=== PATIENT | female | born 1960 | race African-American/Black ===

== ENCOUNTER 2018-08-01 13:08 | Inpatient (IN) | payer MEDICAID ==
[~2018-08-01] VITALS: Ht 165.1 cm; Wt 57.2 kg
--- NOTE | 2018-08-01 13:14 | NUR ---
PT A/OX1, BIB PRIVATE AMBULANCE FROM [facility]. PT C/O CHRONIC BACK PAIN, DENIES FALL/TRAUMA TO BACK. VSS. NO BRUISING/DEFORMITY TO THE SPINE NOTED. SKIN INTACT. PT REPORTS BACK PAIN IS "WORSE TODAY THAN USUAL" BUT UNABLE TO PROVIDE ADDITIONAL INFORMATION. PT DENIES C/P, SOB, N/V/D, DIZZINESS, HEADACHE.
--- NOTE | 2018-08-01 13:20 | NUR ---
Called [facility] and spoke with Emilee who stated pt has been c/o back pain since she woke up today and there was no fall or trauma that was reported.
[2018-08-01] MEDS ORDERED: METF-440 PO (13:23)
[2018-08-01] MEDS ORDERED: OLAN10TA3 PO (13:23)
[2018-08-01] MEDS ORDERED: BENZ1TAB7 PO (13:23)
[2018-08-01] MEDS ORDERED: FLUO-120 PO (13:23)
[2018-08-01] MEDS ORDERED: ATOR20TA PO (13:23)
[2018-08-01] MEDS ORDERED: CHOL200074 PO (13:23)
[2018-08-01] MEDS ORDERED: CARV3.122 PO (13:23)
[2018-08-01] MEDS ORDERED: ASPI81TA31 PO (13:23)
[2018-08-01] MEDS ORDERED: MELA3TAB PO (13:23)
[2018-08-01] MEDS ORDERED: QUET100T PO (13:23)
[2018-08-01] MEDS ORDERED: OLAN20TA3 PO (13:23)
[2018-08-01] MEDS ORDERED: CLON0.1T PO (13:23)
[2018-08-01 14:28] LABS: BASOPHILS % (AUTO) 0.8 % (0.0-2.0); EOSINOPHILS # (AUTO) 0.1 K/uL (0.0-0.7); EOSINOPHILS % (AUTO) 1.7 % (0.0-7.0); HEMATOCRIT 40.7 % (31.2-41.9); LYMPHOCYTES # (AUTO) 1.3 K/uL (20.0-40.0); MEAN CORPUSCULAR HEMOGLOBIN 28.1 uug (24.7-32.8); MEAN CORPUSCULAR HGB CONC 32 g/dL (32.3-35.6); MEAN CORPUSCULAR VOLUME 87.5 fL (75.5-95.3); MONOCYTES # (AUTO) 0.7 K/uL (2.0-10.0); MONOCYTES % (AUTO) 11.9 % (0.0-11.0); NEUTROPHILS # (AUTO) 3.6 K/uL (1.8-8.9); NEUTROPHILS % (AUTO) 62.6 % (38.5-71.5); PLATELET COUNT (AUTO) 126 K/uL (179-408); RED BLOOD CELL COUNT(AUTO) 4.65 MIL/uL (3.63-4.92); WHITE BLOOD COUNT (AUTO) 5.7 K/uL (3.8-11.8)
[2018-08-01 14:37] LABS: CREATININE 0.8 mg/dL (0.6-1.3); POTASSIUM 4.5 mmol/L (3.5-5.1)
[2018-08-01 14:43] LABS: BILIRUBIN,DIRECT 0.2 mg/dL (0.0-0.2); BILIRUBIN,TOTAL 0.9 mg/dL (0.2-1.0); TOTAL PROTEIN, SERUM 7.7 g/dL (6.4-8.2)
[2018-08-01 15:38] LABS: *BILIRUBIN,URIN NEGATIVE (NEGATIVE); *BLOOD, URINE NEGATIVE (NEGATIVE); *CLARITY,URINE CLEAR (CLEAR); *COLOR,URINE YELLOW (YELLOW); *KETONES,URINE NEGATIVE (NEGATIVE); *UROBILINOGEN,URINE 0.2 E.U./dl (NORMAL); LEUKOCYTE ESTERASE ,URINE NEGATIVE (NEGATIVE); NITRITE, URINE NEGATIVE (NEGATIVE); UGLUCOSE NEGATIVE (NEGATIVE)
[2018-08-01 15:48] LABS: SQUAMOUS EPITHELIAL CELL,UR FEW /HPF (NONE SEEN); WBC,URINE 0-3 /HPF (0-3)
--- NOTE | 2018-08-01 16:40 | NUR ---
RECEIVED ADMITTING ORDERS FROM DR. MIRANDA.
--- NOTE | 2018-08-01 16:44 | NUR ---
GAVE ADMITTING REPORT TO KAREN SUERO.
[2018-08-01 18:37] VITALS: BP 156/91
--- NOTE | 2018-08-01 18:41 | NUR ---
58 YEAR OLD FEMALE RECEIVED FROM ER VIA [facility] TO ROOM 319 FOR BACK PAIN,CALL LIGHT WITH IN REACH MD CALLED FOR ADMISSION ORDERS,V/S ARE STABLE
[2018-08-01] MEDS: IV D5/ 0.9% NACL 1,000 ML IV PRN (20:21)
[2018-08-01] MEDS ORDERED: MAGNESIUM HYDROXIDE 30 ML LIQUID UDC PO PRN (20:45)
[2018-08-01] MEDS ORDERED: ACETAMINOPHEN 325 MG TABLET PO PRN (20:45)
[2018-08-01] MEDS ORDERED: ONDANSETRON 4 MG/2 ML VIAL IV PRN (20:45)
[2018-08-01] MEDS: BENZTROPINE MESYLATE 1 MG TABLET PO SCH (20:46)
[2018-08-01] MEDS: ATORVASTATIN 20 MG TABLET PO SCH (20:46)
[2018-08-01 20:47] VITALS: BP 147/94
[2018-08-01] MEDS: MELATONIN 3 MG TABLET PO SCH (20:47)
[2018-08-01] MEDS: OLANZAPINE 5 MG TABLET PO SCH (20:47)
[2018-08-01] MEDS: CLONIDINE HCL 0.1 MG TABLET PO SCH (20:48)
--- NOTE | 2018-08-01 20:57 | NUR ---
Received this 58 y/o female patient Admitting Dx Generalized weakness. Awake pleasantly confused no SOB denies chest pain. Admission assessment initiated. Vital signs WNL BP above normal. Dinner tray provided. Patient tolerated pureed diet. Routine night meds administered. IVF D5NS at 85 ml/hr started as ordered. Kept comfortable. Fall precaution observed, kept bed alarm on at all times. Call light within reach. Will continue to monitor.
--- NOTE | 2018-08-01 23:24 | NUR ---
Asleep no sign of distress.
--- NOTE | 2018-08-02 03:00 | NUR ---
Assisted to the bathroom, patient voided.
--- NOTE | 2018-08-02 04:07 | NUR ---
Noted right hand IV line infiltrated, attempted to insert new IV line x2 but unsuccessful. Patient is hard stick.
[2018-08-02 04:47] VITALS: BP 158/98
--- NOTE | 2018-08-02 07:28 | NUR ---
PATIENT RECEIVED RESTING IN BED ALERT AND ORIENTED TO SELF, CONFUSED TO PLACE TIME AND SITUATION, PATIENT WITH HISTORY OF DEMENTIA, PER HISTORY THIS IS PATIENT BASELINE, PATIENT PLEASANT, CALL LIGHT WITHIN REACH, SIDE RAILS UP X2, BED IN LOWEST POSITION, CONTINUE TO MONITOR PATIENT WITH IV SITE INFILTRATED AT HS, HARD STICK, WILL ATTEMPT TO PLACE LINE, OTHERWISE WILL RECOMMEND MIDLINE IF NEEDED FOR CONTINUES IV HYDRATION .
[2018-08-02] MEDS: METFORMIN HCL 500 MG TABLET PO SCH ×2 (08:17→17:00)
[2018-08-02] MEDS: ASPIRIN 81 MG TAB.CHEW PO SCH (08:17)
[2018-08-02] MEDS: FLUOXETINE HCL 20 MG CAPSULE PO SCH (08:17)
[2018-08-02] MEDS: CHOLECALCIFEROL 1,000 UNIT TABLET PO SCH (08:17)
[2018-08-02] MEDS: OLANZAPINE 5 MG TABLET PO SCH ×2 (08:17→20:49)
[2018-08-02] MEDS: CLONIDINE HCL 0.1 MG TABLET PO SCH ×2 (08:18→20:48)
[2018-08-02] MEDS: CARVEDILOL 3.125 MG TABLET PO SCH ×2 (08:18→17:00)
[2018-08-02] MEDS: QUETIAPINE FUMARATE 100 MG TABLET PO SCH ×3 (08:38→16:07)
[2018-08-02] MEDS: Z GUARD REMEDY PASTE 57 GM TUBE TOP SCH ×2 (08:39→21:05)
[2018-08-02 11:22] VITALS: BP 132/81
[2018-08-02] MEDS ORDERED: DEXTROSE 50% 50 ML DISP.SYRIN IV PRN (13:30)
[2018-08-02] MEDS: IV D5/ 0.9% NACL 1,000 ML IV PRN (14:59)
--- NOTE | 2018-08-02 15:28 | NUR ---
TEXTED DR. BLANK FOR MRI BRAIN W/O APPROVAL.
[2018-08-02 15:30] VITALS: BP 137/92
[2018-08-02] MEDS: BLOOD SUGAR DIAGNOSTIC 1 EACH STRIP VI SCH ×2 (16:06→21:00)
--- NOTE | 2018-08-02 19:50 | NUR ---
Received patient asleep in bed, easily arousable. Not in any form of distress. On room air, tolerated. With midline at left upper arm to ongoing IVF, infusing well. Bed in low position, locked, side rails up x 2, call light within reach. Noise and lights subdued.
[2018-08-02 20:04] VITALS: BP 142/90
[2018-08-02] MEDS: ATORVASTATIN 20 MG TABLET PO SCH (20:48)
[2018-08-02] MEDS: BENZTROPINE MESYLATE 1 MG TABLET PO SCH (20:48)
[2018-08-02] MEDS: MELATONIN 3 MG TABLET PO SCH (20:51)
[2018-08-03] MEDS: IV D5/ 0.9% NACL 1,000 ML IV PRN ×2 (03:15→20:54)
[2018-08-03 04:40] VITALS: BP 160/97
--- NOTE | 2018-08-03 05:42 | NUR ---
Patient slept well throughout the night . Not in any form of distress. On room air, tolerated. With midline at left upper arm to ongoing IVF, infusing well. Ensured safety and comfort. No complaints made. Attended all needs.
[2018-08-03] MEDS: BLOOD SUGAR DIAGNOSTIC 1 EACH STRIP VI SCH ×4 (06:33→20:59)
[2018-08-03] MEDS: CLONIDINE HCL 0.1 MG TABLET PO SCH ×2 (06:39→20:54)
--- NOTE | 2018-08-03 06:43 | NUR ---
Noted patient for MRI of the brain today, to be picked up at 0845. Latest blood pressure is 167/94, asymptomatic, morning dose of clonidine given per orem.
[2018-08-03 07:11] LABS: BASOPHILS % (AUTO) 0.6 % (0.0-2.0); EOSINOPHILS # (AUTO) 0.1 K/uL (0.0-0.7); EOSINOPHILS % (AUTO) 1.6 % (0.0-7.0); HEMOGLOBIN 12.8 g/dL (10.9-14.3); LYMPHOCYTES # (AUTO) 1.1 K/uL (20.0-40.0); LYMPHOCYTES % (AUTO) 22.2 % (20.5-51.5); MEAN CORPUSCULAR HEMOGLOBIN 27.8 uug (24.7-32.8); MEAN CORPUSCULAR HGB CONC 31 g/dL (32.3-35.6); MEAN CORPUSCULAR VOLUME 88.8 fL (75.5-95.3); MONOCYTES # (AUTO) 0.5 K/uL (2.0-10.0); MONOCYTES % (AUTO) 10.9 % (0.0-11.0); NEUTROPHILS # (AUTO) 3.1 K/uL (1.8-8.9); NEUTROPHILS % (AUTO) 64.7 % (38.5-71.5); PLATELET COUNT (AUTO) 111 K/uL (179-408); RED BLOOD CELL COUNT(AUTO) 4.61 MIL/uL (3.63-4.92); WHITE BLOOD COUNT (AUTO) 4.8 K/uL (3.8-11.8)
[2018-08-03] MEDS: METFORMIN HCL 500 MG TABLET PO SCH ×2 (07:47→17:09)
[2018-08-03] MEDS: CARVEDILOL 3.125 MG TABLET PO SCH ×2 (07:47→17:09)
[2018-08-03] MEDS: OLANZAPINE 5 MG TABLET PO SCH ×2 (07:48→16:55)
[2018-08-03] MEDS: CHOLECALCIFEROL 1,000 UNIT TABLET PO SCH (08:00)
[2018-08-03] MEDS: QUETIAPINE FUMARATE 100 MG TABLET PO SCH (08:00)
[2018-08-03] MEDS: FLUOXETINE HCL 20 MG CAPSULE PO SCH (08:00)
[2018-08-03] MEDS: ASPIRIN 81 MG TAB.CHEW PO SCH (08:00)
[2018-08-03] MEDS: Z GUARD REMEDY PASTE 57 GM TUBE TOP SCH ×2 (08:01→21:24)
[2018-08-03 08:40] VITALS: BP 144/81
--- NOTE | 2018-08-03 09:00 | NUR ---
pt went for mri via ambulances in stable condition
[2018-08-03 09:06] LABS: CREATININE 0.6 mg/dL (0.6-1.3); PHOSPHOROUS 2.9 mg/dL (2.5-4.9); POTASSIUM 3.8 mmol/L (3.5-5.1)
[2018-08-03 10:07] LABS: MAGNESIUM 0.9 mg/dL (1.8-2.4)
--- NOTE | 2018-08-03 10:33 | NUR ---
pt is back from mri v/s are stable
[2018-08-03 11:28] VITALS: BP 124/76
[2018-08-03] MEDS: MAGNESIUM SULFATE/D5W 100 ML IV SCH ×3 (12:20→14:27)
[2018-08-03 16:00] VITALS: BP 125/79
[2018-08-03] MEDS: INSULIN REGULAR, HUMAN 300 UNIT/3 ML VIAL SQ PRN (16:11)
--- NOTE | 2018-08-03 19:30 | NUR ---
Received patient awake in bed. Not in any form of distress. On room air, tolerated. With midline at left upper arm to ongoing IVF, infusing well. Bed in low position, locked, side rails up x 2, call light within reach. Noise and lights subdued. Will continue to monitor.
[2018-08-03 20:11] VITALS: BP 173/100
[2018-08-03] MEDS: BENZTROPINE MESYLATE 1 MG TABLET PO SCH (20:53)
[2018-08-03] MEDS: MELATONIN 3 MG TABLET PO SCH (20:53)
[2018-08-03] MEDS: ATORVASTATIN 20 MG TABLET PO SCH (20:53)
--- NOTE | 2018-08-04 00:22 | NUR ---
Blood pressure remains elevated at 170/97 even after catapres given per orem. Called [facility] to page career development consultant MD to ask for medication order. Awaiting call back.
[2018-08-04] MEDS ORDERED: hydrALAZINE HCL 50 MG TABLET PO PRN (00:30)
[2018-08-04 00:31] VITALS: BP 170/97
--- NOTE | 2018-08-04 02:00 | NUR ---
Patient was given hydralazine as ordered by Dr. Latif at 0045. Latest blood pressure is 156/89.
[2018-08-04 04:49] VITALS: BP 126/82
--- NOTE | 2018-08-04 05:51 | NUR ---
Patient slept well throughout the night . No distress noted. On room air, tolerated. With midline at left upper arm to ongoing IVF, infusing well. Ensured safety and comfort. No complaints made. Attended all needs.
[2018-08-04 06:35] LABS: BASOPHILS % (AUTO) 0.3 % (0.0-2.0); EOSINOPHILS # (AUTO) 0.1 K/uL (0.0-0.7); EOSINOPHILS % (AUTO) 1.1 % (0.0-7.0); HEMATOCRIT 40.7 % (31.2-41.9); HEMOGLOBIN 12.9 g/dL (10.9-14.3); LYMPHOCYTES # (AUTO) 0.8 K/uL (20.0-40.0); LYMPHOCYTES % (AUTO) 15.2 % (20.5-51.5); MEAN CORPUSCULAR HGB CONC 32 g/dL (32.3-35.6); MEAN CORPUSCULAR VOLUME 88.6 fL (75.5-95.3); MONOCYTES # (AUTO) 0.6 K/uL (2.0-10.0); MONOCYTES % (AUTO) 11.7 % (0.0-11.0); NEUTROPHILS % (AUTO) 71.7 % (38.5-71.5); PLATELET COUNT (AUTO) 104 K/uL (179-408); WHITE BLOOD COUNT (AUTO) 5.6 K/uL (3.8-11.8)
[2018-08-04 06:42] LABS: BILIRUBIN,TOTAL 0.6 mg/dL (0.2-1.0); CREATININE 0.6 mg/dL (0.6-1.3); MAGNESIUM 1.3 mg/dL (1.8-2.4); PHOSPHOROUS 2.5 mg/dL (2.5-4.9); POTASSIUM 3.8 mmol/L (3.5-5.1); TOTAL PROTEIN, SERUM 7.1 g/dL (6.4-8.2)
[2018-08-04] MEDS: BLOOD SUGAR DIAGNOSTIC 1 EACH STRIP VI SCH ×4 (06:42→20:41)
[2018-08-04] MEDS: CLONIDINE HCL 0.1 MG TABLET PO SCH ×2 (08:26→20:34)
[2018-08-04] MEDS: CHOLECALCIFEROL 1,000 UNIT TABLET PO SCH (08:26)
[2018-08-04] MEDS: METFORMIN HCL 500 MG TABLET PO SCH ×2 (08:26→17:14)
[2018-08-04] MEDS: FLUOXETINE HCL 20 MG CAPSULE PO SCH (08:26)
[2018-08-04] MEDS: ASPIRIN 81 MG TAB.CHEW PO SCH (08:27)
[2018-08-04] MEDS: OLANZAPINE 5 MG TABLET PO SCH ×2 (08:27→16:44)
[2018-08-04] MEDS: CARVEDILOL 3.125 MG TABLET PO SCH ×2 (08:27→17:14)
[2018-08-04] MEDS: Z GUARD REMEDY PASTE 57 GM TUBE TOP SCH ×2 (08:27→20:34)
[2018-08-04] MEDS: IV D5/ 0.9% NACL 1,000 ML IV PRN (08:35)
[2018-08-04] MEDS ORDERED: LEVOFLOXACIN 500 MG TABLET PO SCH (09:30)
[2018-08-04] MEDS: MAGNESIUM SULFATE/D5W 100 ML IV SCH ×4 (10:28→12:34)
[2018-08-04 11:11] VITALS: BP 148/87
[2018-08-04] MEDS: LEVOFLOXACIN 500 MG TABLET PO SCH (11:21)
[2018-08-04 15:08] VITALS: BP 123/80
[2018-08-04] MEDS: INSULIN REGULAR, HUMAN 300 UNIT/3 ML VIAL SQ PRN (16:28)
[2018-08-04 20:00] VITALS: BP 149/89
[2018-08-04] MEDS: ATORVASTATIN 20 MG TABLET PO SCH (20:34)
[2018-08-04] MEDS: MELATONIN 3 MG TABLET PO SCH (20:34)
[2018-08-04] MEDS: BENZTROPINE MESYLATE 1 MG TABLET PO SCH (20:34)
[2018-08-05 04:53] VITALS: BP 123/85
--- NOTE | 2018-08-05 04:54 | NUR ---
INFORMATION SENT: FACESHEET,PROGRESS NOTES 08/04,UR 08/04 INSURANCE NAME: [facility] / [facility] FAX NUMBER: [phone] / [phone] FAX SENT
[2018-08-05] MEDS: BLOOD SUGAR DIAGNOSTIC 1 EACH STRIP VI SCH ×4 (06:34→20:51)
[2018-08-05 06:47] LABS: BILIRUBIN,TOTAL 0.7 mg/dL (0.2-1.0); CREATININE 0.7 mg/dL (0.6-1.3); MAGNESIUM 1.3 mg/dL (1.8-2.4); PHOSPHOROUS 2.4 mg/dL (2.5-4.9); POTASSIUM 4.5 mmol/L (3.5-5.1); TOTAL PROTEIN, SERUM 7.5 g/dL (6.4-8.2)
[2018-08-05] MEDS: CHOLECALCIFEROL 1,000 UNIT TABLET PO SCH (08:37)
[2018-08-05] MEDS: METFORMIN HCL 500 MG TABLET PO SCH ×2 (08:37→18:03)
[2018-08-05] MEDS: OLANZAPINE 5 MG TABLET PO SCH ×2 (08:38→18:03)
[2018-08-05] MEDS: CLONIDINE HCL 0.1 MG TABLET PO SCH ×2 (08:38→20:52)
[2018-08-05] MEDS: ASPIRIN 81 MG TAB.CHEW PO SCH (08:38)
[2018-08-05] MEDS: CARVEDILOL 3.125 MG TABLET PO SCH ×2 (08:39→18:03)
[2018-08-05] MEDS: FLUOXETINE HCL 20 MG CAPSULE PO SCH (08:42)
[2018-08-05 08:54] LABS: BASOPHILS % (AUTO) 0.5 % (0.0-2.0); EOSINOPHILS % (AUTO) 0.4 % (0.0-7.0); HEMATOCRIT 40.2 % (31.2-41.9); HEMOGLOBIN 12.9 g/dL (10.9-14.3); LYMPHOCYTES # (AUTO) 1.2 K/uL (20.0-40.0); LYMPHOCYTES % (AUTO) 16.3 % (20.5-51.5); MEAN CORPUSCULAR HEMOGLOBIN 28.3 uug (24.7-32.8); MEAN CORPUSCULAR HGB CONC 32 g/dL (32.3-35.6); MEAN CORPUSCULAR VOLUME 88.1 fL (75.5-95.3); MONOCYTES # (AUTO) 0.8 K/uL (2.0-10.0); MONOCYTES % (AUTO) 11.2 % (0.0-11.0); NEUTROPHILS # (AUTO) 5.3 K/uL (1.8-8.9); NEUTROPHILS % (AUTO) 71.6 % (38.5-71.5); PLATELET COUNT (AUTO) 107 K/uL (179-408); RED BLOOD CELL COUNT(AUTO) 4.56 MIL/uL (3.63-4.92); WHITE BLOOD COUNT (AUTO) 7.4 K/uL (3.8-11.8)
[2018-08-05] MEDS: Z GUARD REMEDY PASTE 57 GM TUBE TOP SCH ×2 (09:26→20:50)
[2018-08-05 11:48] VITALS: BP 132/85
[2018-08-05] MEDS: LEVOFLOXACIN 500 MG TABLET PO SCH (11:57)
[2018-08-05] MEDS: MAGNESIUM SULFATE 2 GM in IV DEXTROSE 5% 100 ML IV SCH ×2 (15:07→16:51)
[2018-08-05] MEDS ORDERED: NEUTRA PHOS PACKET PO ONE (15:30)
[2018-08-05 15:58] VITALS: BP 112/74
[2018-08-05 15:59] VITALS: BP 91/55
--- NOTE | 2018-08-05 20:00 | NUR ---
Received patient laying in bed. No acute distress noted. A/O x 2 with periods of confusion. Patient talks to herself. Midline on the left UA patent and intact. Skin is intact. Safety initiated. Call light within reach. Will continue to monitor.
[2018-08-05] MEDS: ATORVASTATIN 20 MG TABLET PO SCH (20:49)
[2018-08-05] MEDS: MELATONIN 3 MG TABLET PO SCH (20:49)
[2018-08-05] MEDS: BENZTROPINE MESYLATE 1 MG TABLET PO SCH (20:50)
[2018-08-05] MEDS: INSULIN REGULAR, HUMAN 300 UNIT/3 ML VIAL SQ PRN (20:55)
[2018-08-05 23:09] VITALS: BP 132/85
[2018-08-06 04:00] VITALS: BP 129/74
--- NOTE | 2018-08-06 05:34 | NUR ---
No changes t/o shift. Patient slept t/o shift. No acute distress noted. Good urine output. Vital signs stable. All meds given as ordered. All needs met. Safety and comfort measures maintained t/o shift.
[2018-08-06] MEDS: BLOOD SUGAR DIAGNOSTIC 1 EACH STRIP VI SCH ×2 (06:38→11:44)
[2018-08-06 06:47] LABS: CREATININE 0.6 mg/dL (0.6-1.3); MAGNESIUM 1.4 mg/dL (1.8-2.4); PHOSPHOROUS 1.7 mg/dL (2.5-4.9); POTASSIUM 4.6 mmol/L (3.5-5.1)
--- NOTE | 2018-08-06 07:02 | NUR ---
INFORMATION SENT: FACESHEET,PROGRESS NOTES 08/05,UR 08/05 INSURANCE NAME: [facility] FAX NUMBER: [phone] / [phone] FAX SENT
[2018-08-06] MEDS ORDERED: OLAN5TAB3 PO (07:47)
[2018-08-06] MEDS ORDERED: LEVO500T2 PO (07:47)
[2018-08-06] MEDS: METFORMIN HCL 500 MG TABLET PO SCH (08:38)
[2018-08-06] MEDS: CHOLECALCIFEROL 1,000 UNIT TABLET PO SCH (08:39)
[2018-08-06] MEDS: CARVEDILOL 3.125 MG TABLET PO SCH (08:39)
[2018-08-06] MEDS: OLANZAPINE 5 MG TABLET PO SCH (08:39)
[2018-08-06] MEDS: ASPIRIN 81 MG TAB.CHEW PO SCH (08:39)
[2018-08-06] MEDS: FLUOXETINE HCL 20 MG CAPSULE PO SCH (08:39)
[2018-08-06] MEDS: Z GUARD REMEDY PASTE 57 GM TUBE TOP SCH (08:46)
--- NOTE | 2018-08-06 09:00 | NUR ---
Received patient awake, alert x 1-2. With intact and patent left upper arm midline. Not in any form of distress. Baseline LOC. Tolerated diet well and medications well with apple sauce.
[2018-08-06] MEDS: CLONIDINE HCL 0.1 MG TABLET PO SCH (10:57)
[2018-08-06] MEDS: LEVOFLOXACIN 500 MG TABLET PO SCH (11:00)
[2018-08-06] MEDS: INSULIN REGULAR, HUMAN 300 UNIT/3 ML VIAL SQ PRN (11:45)
[2018-08-06 11:53] VITALS: BP 111/63
[2018-08-06] MEDS: MAGNESIUM SULFATE/D5W 100 ML IV SCH ×4 (12:09→14:45)
--- NOTE | 2018-08-06 15:32 | NUR ---
[facility] aware of patient to be discharged to them per caser up. Admission packet and education given to patient. Routine discharge care done. Patient with poor understanding of health but aware she is being discharged to assisted living.
[2018-08-06] MEDS ORDERED: MAGNESIUM OXIDE 400 MG TABLET PO ONE (16:00)
--- NOTE | 2018-08-06 16:00 | NUR ---
Informed pharmacy of discharge order for patient, however with still 1 bag of Magnesium IV to give. PO Magnesium 400 mg given instead of 1 bag IV of Magnesium. Patient discharge to [facility] assisted living accompanied by assisted living staff via private transport.
[2018-10-25] MEDS ORDERED: OLAN20TA24 PO (22:46)
== END 2018-08-06 16:04 | DRG 347 ==
LOC: ER 13:08 → MEDSURG3 18:15
PROVIDERS: ADMIT Internal Medicine Nephrology; ATTEND Internal Medicine
PROC: 05HY33Z Insertion of Infusion Device into Upper Vein, Percutaneous Approach (ICD-10-PCS; principal; 2018-08-02)
DX: M47.816 Spondylosis without myelopathy or radiculopathy, lumbar region (principal); G92 Toxic encephalopathy; F32.3 Major depressive disorder, single episode, severe with psychotic features; J18.9 Pneumonia, unspecified organism; F03.91 Unspecified dementia, unspecified severity, with behavioral disturbance; E78.5 Hyperlipidemia, unspecified; M19.90 Unspecified osteoarthritis, unspecified site; E83.42 Hypomagnesemia; I11.9 Hypertensive heart disease without heart failure; Z79.84 Long term (current) use of oral hypoglycemic drugs; Z79.82 Long term (current) use of aspirin; I69.392 Facial weakness following cerebral infarction; E11.9 Type 2 diabetes mellitus without complications; R53.81 Other malaise; Z79.899 Other long term (current) drug therapy; R26.2 Difficulty in walking, not elsewhere classified
CPT/HCPCS: 36415; 36569; 70450; 70551; 71045; 72110; 83735; 84100; 85025; 93005; 97110; 97116; 97165; 97530; 97535; A4663; G0378; J1815; J3475; J7042; J7060

== ENCOUNTER 2018-10-25 22:24 | Inpatient (IN) | payer MEDICAID ==
[~2018-10-25] VITALS: Ht 165.1 cm; Wt 63.6 kg
[~2018-10-25 22:24] MED LIST: ASPI81TA31 PO; ATOR20TA PO; BENZ1TAB7 PO; CARV3.122 PO; CHOL200074 PO; CLON0.1T PO; FLUO-120 PO; LEVO500T2 PO; MELA3TAB PO; METF-440 PO; OLAN10TA3 PO; OLAN5TAB3 PO
--- NOTE | 2018-10-25 22:45 | NUR ---
pt was brought in via ambulance comes from [facility] pt stated she was trying to go to the bathroom by herself without her walker and slipped to the floor denies loss of consciousness but stated her left hip hurt down to her left knee no abnorm. noted pt is able to move all extremities without incident. emt's stated pt had a fall that was unwitness and c/o of pain
[2018-10-25] MEDS ORDERED: QUET100T PO (22:46)
[2018-10-25] MEDS ORDERED: OLAN20TA17 PO (22:46)
[2018-10-25 22:59] LABS: BASOPHILS % (AUTO) 0.7 % (0.0-2.0); EOSINOPHILS # (AUTO) 0.1 K/uL (0.0-0.7); EOSINOPHILS % (AUTO) 1.6 % (0.0-7.0); HEMATOCRIT 37.6 % (31.2-41.9); HEMOGLOBIN 11.7 g/dL (10.9-14.3); LYMPHOCYTES # (AUTO) 1.1 K/uL (20.0-40.0); LYMPHOCYTES % (AUTO) 25.7 % (20.5-51.5); MEAN CORPUSCULAR HEMOGLOBIN 28.5 uug (24.7-32.8); MEAN CORPUSCULAR HGB CONC 31 g/dL (32.3-35.6); MEAN CORPUSCULAR VOLUME 91.2 fL (75.5-95.3); MONOCYTES # (AUTO) 0.4 K/uL (2.0-10.0); MONOCYTES % (AUTO) 9.4 % (0.0-11.0); NEUTROPHILS # (AUTO) 2.7 K/uL (1.8-8.9); NEUTROPHILS % (AUTO) 62.6 % (38.5-71.5); PLATELET COUNT (AUTO) 133 K/uL (179-408); RED BLOOD CELL COUNT(AUTO) 4.13 MIL/uL (3.63-4.92); WHITE BLOOD COUNT (AUTO) 4.3 K/uL (3.8-11.8)
[2018-10-25 23:15] LABS: CREATININE 0.7 mg/dL (0.6-1.3)
[2018-10-25 23:17] LABS: BILIRUBIN,DIRECT 0.1 mg/dL (0.0-0.2); BILIRUBIN,TOTAL 0.3 mg/dL (0.1-1.0)
[2018-10-25 23:18] LABS: TOTAL PROTEIN, SERUM 7.1 g/dL (6.4-8.2)
--- NOTE | 2018-10-25 23:30 | NUR ---
pt went to radiologist dept
--- NOTE | 2018-10-26 00:25 | NUR ---
pt is back from radiologist dept condition remains stable without incident
[2018-10-26] MEDS ORDERED: hydrALAZINE HCL 20 MG/1 ML VIAL IV ONE (00:45)
[2018-10-26 00:48] LABS: *BILIRUBIN,URIN NEGATIVE (NEGATIVE); *BLOOD, URINE NEGATIVE (NEGATIVE); *CLARITY,URINE CLEAR (CLEAR); *COLOR,URINE YELLOW (YELLOW); *KETONES,URINE NEGATIVE (NEGATIVE); *UROBILINOGEN,URINE 0.2 E.U./dl (NORMAL); LEUKOCYTE ESTERASE ,URINE NEGATIVE (NEGATIVE); NITRITE, URINE NEGATIVE (NEGATIVE); PH,URINE 5.5 (5.0-8.0); UGLUCOSE NEGATIVE (NEGATIVE)
--- NOTE | 2018-10-26 00:50 | NUR ---
pt was medicated time one with apresoline for sbp over 199 pt denies allergy medication teaching given denies pain/discomfort will continue b/p at this time
[2018-10-26] MEDS ORDERED: hydrALAZINE HCL 20 MG/1 ML VIAL ONE (00:59)
--- NOTE | 2018-10-26 01:00 | NUR ---
pt bp down to 146/90
--- NOTE | 2018-10-26 01:15 | NUR ---
report was called to faraz hurst the new rec'ing nurse pt is going to room 11 all questions answered pt condition remains stable and pt is aware of her admit and why
--- NOTE | 2018-10-26 02:00 | NUR ---
pt resting quietly until admission is cleared
--- NOTE | 2018-10-26 02:50 | NUR ---
Paged [facility]. Waiting for DR Latif to call back
--- NOTE | 2018-10-26 03:05 | NUR ---
pt resting without incident comfort and safety maintained
--- NOTE | 2018-10-26 03:07 | NUR ---
Dr Nichole speaking with Dr Iliana Latif
--- NOTE | 2018-10-26 03:45 | NUR ---
Received patient from ER. Dx: Syncope. Patient is A/Ox1-2 No signs of acute distress noted. No complaints of SOB, patient on 2L NC saturating at 94%. Complains of 4/10 pain of the left hip. Heplock on the right hand is intact. Garcia catheter is intact and patent. Belongings and belonging list brought with patient. Safety measures initiated. Bed is low and lock, call light within reach. Will continue with admission process.
[2018-10-26 04:48] VITALS: BP 158/99
--- NOTE | 2018-10-26 07:10 | NUR ---
RECEIVED REPORT FROM TEMPLATE REPRODUCTION TECHNICIAN NURSE, PATIENT IN BED AWAKE, NO DISTRESS NOTED AT THIS TIME, BED IN LOW POSITION, SIDE RAILS UPX2.
[2018-10-26 07:14] LABS: BASOPHILS % (AUTO) 0.1 % (0.0-2.0); EOSINOPHILS % (AUTO) 0.2 % (0.0-7.0); HEMATOCRIT 41.7 % (31.2-41.9); HEMOGLOBIN 13.2 g/dL (10.9-14.3); LYMPHOCYTES # (AUTO) 0.8 K/uL (20.0-40.0); LYMPHOCYTES % (AUTO) 10.7 % (20.5-51.5); MEAN CORPUSCULAR HEMOGLOBIN 28.6 uug (24.7-32.8); MEAN CORPUSCULAR HGB CONC 32 g/dL (32.3-35.6); MEAN CORPUSCULAR VOLUME 90.1 fL (75.5-95.3); MONOCYTES # (AUTO) 0.5 K/uL (2.0-10.0); MONOCYTES % (AUTO) 6.1 % (0.0-11.0); NEUTROPHILS # (AUTO) 6.1 K/uL (1.8-8.9); NEUTROPHILS % (AUTO) 82.9 % (38.5-71.5); PLATELET COUNT (AUTO) 147 K/uL (179-408); RED BLOOD CELL COUNT(AUTO) 4.63 MIL/uL (3.63-4.92); WHITE BLOOD COUNT (AUTO) 7.3 K/uL (3.8-11.8)
[2018-10-26 07:18] LABS: CHLORIDE 105 mmol/L (98-107); CREATININE 0.5 mg/dL (0.6-1.3); GLUCOSE 128 mg/dL (74-106); POTASSIUM 3.7 mmol/L (3.5-5.1); UREA NITROGEN, BLOOD 13 mg/dL (7-18)
[2018-10-26 07:47] LABS: CARBON DIOXIDE 29 mmol/L (21-32)
[2018-10-26] MEDS: CARVEDILOL 3.125 MG TABLET PO SCH ×2 (08:57→17:40)
[2018-10-26] MEDS: FLUOXETINE HCL 20 MG CAPSULE PO SCH (08:57)
[2018-10-26] MEDS: ASPIRIN 81 MG TAB.CHEW PO SCH (08:57)
[2018-10-26] MEDS: CLONIDINE HCL 0.1 MG TABLET PO SCH ×2 (08:57→21:00)
[2018-10-26] MEDS: METFORMIN HCL 500 MG TABLET PO SCH ×3 (08:57→18:51)
[2018-10-26] MEDS: OLANZAPINE 5 MG TABLET PO SCH ×2 (08:58→21:00)
[2018-10-26] MEDS: CHOLECALCIFEROL 1,000 UNIT TABLET PO SCH (08:58)
[2018-10-26 12:15] VITALS: BP 100/54
[2018-10-26] MEDS: QUETIAPINE FUMARATE 100 MG TABLET PO SCH ×2 (12:46→16:24)
[2018-10-26 15:29] VITALS: BP 90/43
--- NOTE | 2018-10-26 17:42 | NUR ---
Patient has been cooperative with care but excessively lethargic. Evening medications held. Glucose checked for precautionary purposes, and blood pressure monitored. Currently patient is in bed, no distress noted at this time, bed in low position, side rails up x2. bed alarm on.
--- NOTE | 2018-10-26 19:40 | NUR ---
Received report from morning shift, patient has been very lethargic. No signs of acute distress noted. Able to arouse patient and ask how she's feeling, she stated that she was tired, had no complaints of pain or SOB. Heplock on the right hand is intact and patent. Garcia catheter is intact and draining clear yellow urine. Safety measures initiated. Bed is low and locked, call light within reach, side rails up x2. Will continue to monitor.
[2018-10-26] MEDS: ATORVASTATIN 20 MG TABLET PO SCH (20:53)
[2018-10-26] MEDS: BENZTROPINE MESYLATE 1 MG TABLET PO SCH (20:53)
[2018-10-26] MEDS: MELATONIN 3 MG TABLET PO SCH (21:00)
[2018-10-26 21:15] VITALS: BP 100/57
[2018-10-27] MEDS: CLONIDINE HCL 0.1 MG TABLET PO SCH ×3 (00:24→21:00)
[2018-10-27 00:25] VITALS: BP 146/89
--- NOTE | 2018-10-27 00:36 | NUR ---
Held scheduled clonidine, zyprexa, and melatonin due to patient being lethargic and decreased blood pressure of 100/57. Patient is now more alert and I administered unscheduled clonidine for BP of 146/89. Will continue to monitor.
[2018-10-27 04:30] VITALS: BP 139/88
--- NOTE | 2018-10-27 06:37 | NUR ---
Patient slept well throughout shift. No signs of acute distress. Patient was more alert. Repositioned patient. Safety measures given.
--- NOTE | 2018-10-27 07:51 | NUR ---
Awake, alert oriented x 2, complaining of of left hip pain
[2018-10-27] MEDS: OLANZAPINE 5 MG TABLET PO SCH ×2 (08:53→21:00)
[2018-10-27] MEDS: CHOLECALCIFEROL 1,000 UNIT TABLET PO SCH (08:53)
[2018-10-27] MEDS: METFORMIN HCL 500 MG TABLET PO SCH ×2 (08:54→17:21)
[2018-10-27] MEDS: FLUOXETINE HCL 20 MG CAPSULE PO SCH (08:54)
[2018-10-27] MEDS: QUETIAPINE FUMARATE 100 MG TABLET PO SCH ×3 (08:54→17:22)
[2018-10-27] MEDS: CARVEDILOL 3.125 MG TABLET PO SCH ×2 (08:55→17:20)
[2018-10-27] MEDS: ASPIRIN 81 MG TAB.CHEW PO SCH (08:55)
--- NOTE | 2018-10-27 11:00 | NUR ---
PT eval done, able to stand at the edge of bed.
[2018-10-27 11:31] VITALS: BP 113/73
[2018-10-27] MEDS ORDERED: DEXTROSE 50% 50 ML DISP.SYRIN IV PRN (13:15)
[2018-10-27] MEDS ORDERED: FUROSEMIDE 20 MG/2 ML VIAL IV ONE (13:15)
--- NOTE | 2018-10-27 15:15 | NUR ---
Noted O2 sat at 88% at 2L/NC, increased to 4L/NC with O2 sat 94%. Lasix IV given as ordered. Garcia catheter to drainage bag, will monitor urine output
[2018-10-27 15:39] VITALS: BP 111/70
[2018-10-27] MEDS: BLOOD SUGAR DIAGNOSTIC 1 EACH STRIP VI SCH ×2 (16:50→21:14)
--- NOTE | 2018-10-27 18:29 | NUR ---
Patient awake and alert ; ate 90 of Dinner. 02 at 4L on nasal cannula with SP02 of 94% .
[2018-10-27 20:00] VITALS: BP 98/57
--- NOTE | 2018-10-27 20:00 | NUR ---
Received pt. asleep in room. pt. is awake upon touch but drowses off to sleep. Pt. is on tele in sinus rhythm. Pt. has castillo in draining yellow urine. IV site in right hand 20 gauge patent and intact hep locked. Pt. is on 4 L Nasal Canula. Bed in lowest position, 2 side rails up, locked, with call light within reach. Will continue to monitor patient.
--- NOTE | 2018-10-27 20:30 | NUR ---
Did not give scheduled medication to pt. because pt. is lethargic. Informed Charge Nurse Jeri. Blood sugar checked 121 mg/dl. no insulin given. Pt. is responsive to touch. Will continue to monitor.
[2018-10-27] MEDS: BENZTROPINE MESYLATE 1 MG TABLET PO SCH (21:00)
[2018-10-27] MEDS: MELATONIN 3 MG TABLET PO SCH (21:00)
[2018-10-27] MEDS: ATORVASTATIN 20 MG TABLET PO SCH (21:00)
[2018-10-28] VITALS: BP 99/59
[2018-10-28 04:00] VITALS: BP 103/60
[2018-10-28] MEDS: BLOOD SUGAR DIAGNOSTIC 1 EACH STRIP VI SCH ×4 (06:34→20:39)
--- NOTE | 2018-10-28 07:05 | NUR ---
Pt. is alert oriented x2. Pt. became more alert around 0300. Pt. denies any pain or discomfort. IV in Right hand 20 gauge, hep lock, patent, and intact. Garcia draining yellow urine. Pt. on 4 L NC. pt. on tele in sinus rhythm. blood sugar checked at 0630 181 mg/dl. Bed in lowest position, locked, 2 side rails up, call light within reach.
[2018-10-28 07:29] LABS: BASOPHILS % (AUTO) 0.2 % (0.0-2.0); EOSINOPHILS # (AUTO) 0.1 K/uL (0.0-0.7); EOSINOPHILS % (AUTO) 0.8 % (0.0-7.0); HEMATOCRIT 38.3 % (31.2-41.9); HEMOGLOBIN 12.1 g/dL (10.9-14.3); LYMPHOCYTES # (AUTO) 1.1 K/uL (20.0-40.0); LYMPHOCYTES % (AUTO) 17.3 % (20.5-51.5); MEAN CORPUSCULAR HEMOGLOBIN 28.5 uug (24.7-32.8); MEAN CORPUSCULAR HGB CONC 32 g/dL (32.3-35.6); MEAN CORPUSCULAR VOLUME 90.2 fL (75.5-95.3); MONOCYTES # (AUTO) 0.7 K/uL (2.0-10.0); NEUTROPHILS # (AUTO) 4.4 K/uL (1.8-8.9); NEUTROPHILS % (AUTO) 70.7 % (38.5-71.5); PLATELET COUNT (AUTO) 137 K/uL (179-408); RED BLOOD CELL COUNT(AUTO) 4.24 MIL/uL (3.63-4.92); WHITE BLOOD COUNT (AUTO) 6.3 K/uL (3.8-11.8)
--- NOTE | 2018-10-28 07:36 | NUR ---
Patient received in room awake calm and cooperative; 02 at 4L
[2018-10-28 07:43] LABS: CREATININE 0.6 mg/dL (0.6-1.3); MAGNESIUM 1.4 mg/dL (1.8-2.4); PHOSPHOROUS 2.2 mg/dL (2.5-4.9); POTASSIUM 3.7 mmol/L (3.5-5.1)
[2018-10-28] MEDS: CHOLECALCIFEROL 1,000 UNIT TABLET PO SCH (08:34)
[2018-10-28] MEDS: OLANZAPINE 5 MG TABLET PO SCH ×2 (08:35→17:10)
[2018-10-28] MEDS: METFORMIN HCL 500 MG TABLET PO SCH ×2 (08:36→17:10)
[2018-10-28] MEDS: ASPIRIN 81 MG TAB.CHEW PO SCH (08:36)
[2018-10-28] MEDS: FLUOXETINE HCL 20 MG CAPSULE PO SCH (08:36)
[2018-10-28] MEDS: CARVEDILOL 3.125 MG TABLET PO SCH (08:37)
[2018-10-28] MEDS: CLONIDINE HCL 0.1 MG TABLET PO SCH (08:37)
[2018-10-28] MEDS: QUETIAPINE FUMARATE 100 MG TABLET PO SCH ×2 (08:39→20:13)
[2018-10-28] MEDS: INSULIN REGULAR, HUMAN 300 UNIT/3 ML VIAL SQ PRN ×2 (08:43→17:11)
[2018-10-28 10:59] VITALS: BP 93/59
[2018-10-28] MEDS: MAGNESIUM SULFATE/D5W 100 ML IV SCH ×4 (11:49→15:26)
--- NOTE | 2018-10-28 12:00 | NUR ---
Dr. Lama for psych consult ; seen patient with adjustment of dosages of psych medications.
[2018-10-28 14:37] VITALS: BP 121/78
[2018-10-28] MEDS ORDERED: NEUTRA PHOS PACKET PO ONE (15:45)
[2018-10-28] MEDS ORDERED: FUROSEMIDE 20 MG/2 ML VIAL IV ONE (16:00)
--- NOTE | 2018-10-28 18:29 | NUR ---
Patient calm and cooperative ; no signs of distress with 02 at 3 L ; patient denies pain and discomfort.
[2018-10-28 20:00] VITALS: BP 113/69
[2018-10-28] MEDS: ATORVASTATIN 20 MG TABLET PO SCH (20:12)
[2018-10-28] MEDS: METOPROLOL TARTRATE 25 MG TABLET PO SCH (20:13)
[2018-10-28] MEDS: MELATONIN 3 MG TABLET PO SCH (20:13)
--- NOTE | 2018-10-28 23:55 | NUR ---
Rec'd full bedside SBAR shift report from NIMO Sadns. Pt in bed asleep, appears comfortable, easily arousable to touch. No s/s of acute distress noted. On 4L O2 via n/c, satting 94%. All safety precautions in place. Will cont to monitor.
[2018-10-29 05:00] VITALS: BP 115/71
[2018-10-29] MEDS: BLOOD SUGAR DIAGNOSTIC 1 EACH STRIP VI SCH ×4 (06:42→20:38)
[2018-10-29 07:03] LABS: CREATININE 0.7 mg/dL (0.6-1.3); MAGNESIUM 1.6 mg/dL (1.8-2.4); PHOSPHOROUS 2.9 mg/dL (2.5-4.9); POTASSIUM 4.1 mmol/L (3.5-5.1)
[2018-10-29] MEDS: FLUOXETINE HCL 20 MG CAPSULE PO SCH (08:19)
[2018-10-29] MEDS: OLANZAPINE 5 MG TABLET PO SCH ×2 (08:20→17:57)
[2018-10-29] MEDS: METOPROLOL TARTRATE 25 MG TABLET PO SCH ×2 (08:23→20:30)
[2018-10-29] MEDS: CHOLECALCIFEROL 1,000 UNIT TABLET PO SCH (08:24)
[2018-10-29] MEDS: ASPIRIN 81 MG TAB.CHEW PO SCH (08:24)
[2018-10-29] MEDS: METFORMIN HCL 500 MG TABLET PO SCH ×2 (08:24→17:57)
[2018-10-29] MEDS: INSULIN REGULAR, HUMAN 300 UNIT/3 ML VIAL SQ PRN ×2 (08:26→16:58)
--- NOTE | 2018-10-29 08:40 | NUR ---
Per Md orders pt to be titrated to room air patient decreased from 3L to 2L will continue to be titrated down as tolerated by patient
--- NOTE | 2018-10-29 08:55 | NUR ---
Patient had episode of desaturation of 86% while on 2L ; patient increased to 3L with an increase of spo2 of 92%
[2018-10-29] MEDS ORDERED: FUROSEMIDE 40 MG/4 ML VIAL IV ONE (11:00)
[2018-10-29] MEDS: MAGNESIUM SULFATE/D5W 100 ML IV SCH ×2 (11:14→12:19)
[2018-10-29 11:40] VITALS: BP 114/73
[2018-10-29] MEDS ORDERED: FUROSEMIDE 20 MG/2 ML VIAL IV ONE (14:15)
--- NOTE | 2018-10-29 14:22 | NUR ---
Received telephone order from Dr. Aquino for Lasix 20 mg IV x 1 dose and ABG. Orders noted and carried out. Pt. made aware with no further question.
[2018-10-29 15:42] VITALS: BP 136/76
[2018-10-29 16:12] LABS: ABG BASE EXCESS 12.9 mmol/L; ABG HCO3 39.9 mmol/L; ABG PCO2 61.6 mmHg (35.0-45.0); ABG PH 7.429 (7.350-7.450); ABG PO2 63.9 mmHg (75.0-100.0); ABG SITE RIGHT RADIAL; ABG TOTAL HEMOGLOBIN 13.3 G/dL (12.0-16.0); COHb 1.9 % (0.5-1.5); MetHb 0.2 % (0.0-1.5); O2Hb 90.9 % (94.0-97.0); VENT MODE Nasal Cannula
--- NOTE | 2018-10-29 19:03 | NUR ---
Patient calm with no signs of distress; tolerated PT therapy ; vitals with in normal limits; O2 was titrated down, not well tolerated by patient 02 kept at 3L with spo2 of 94% .
--- NOTE | 2018-10-29 19:30 | NUR ---
Received patient resting in bed. No signs of acute distress noted. No signs of pain or SOB. Patient on 4L saturating at 93% Heplock on the left hand is intact and patent. Safety measures initiated. Bed is low and locked, call light within reach. will continue to monitor.
[2018-10-29 20:00] VITALS: BP 133/62
[2018-10-29] MEDS: QUETIAPINE FUMARATE 100 MG TABLET PO SCH ×2 (20:29→21:00)
[2018-10-29] MEDS: ATORVASTATIN 20 MG TABLET PO SCH (20:29)
[2018-10-29] MEDS: MELATONIN 3 MG TABLET PO SCH (20:29)
[2018-10-29] MEDS: ALBUTEROL SULFATE 2.5 MG/3 ML NEBU NEB SCH (23:06)
[2018-10-30] MEDS: ALBUTEROL SULFATE 2.5 MG/3 ML NEBU NEB SCH ×6 (02:30→23:39)
[2018-10-30 03:14] VITALS: BP 115/69
--- NOTE | 2018-10-30 06:08 | NUR ---
Patient slept well throughout night. No signs of acute distress noted. All medications given as ordered and tolerated well. Started scheduled breathing treatments and tolerated well. Patient still on 4L NC and saturating at 94-95% Safety measures given.
[2018-10-30] MEDS: BLOOD SUGAR DIAGNOSTIC 1 EACH STRIP VI SCH ×4 (06:31→22:07)
[2018-10-30 07:34] LABS: BASOPHILS % (AUTO) 0.4 % (0.0-2.0); EOSINOPHILS # (AUTO) 0.1 K/uL (0.0-0.7); EOSINOPHILS % (AUTO) 1.1 % (0.0-7.0); HEMATOCRIT 37.6 % (31.2-41.9); HEMOGLOBIN 11.7 g/dL (10.9-14.3); LYMPHOCYTES # (AUTO) 1.1 K/uL (20.0-40.0); LYMPHOCYTES % (AUTO) 19.7 % (20.5-51.5); MEAN CORPUSCULAR HEMOGLOBIN 28.3 uug (24.7-32.8); MEAN CORPUSCULAR HGB CONC 31 g/dL (32.3-35.6); MEAN CORPUSCULAR VOLUME 90.6 fL (75.5-95.3); MONOCYTES # (AUTO) 0.8 K/uL (2.0-10.0); MONOCYTES % (AUTO) 13.5 % (0.0-11.0); NEUTROPHILS # (AUTO) 3.6 K/uL (1.8-8.9); NEUTROPHILS % (AUTO) 65.3 % (38.5-71.5); PLATELET COUNT (AUTO) 140 K/uL (179-408); RED BLOOD CELL COUNT(AUTO) 4.16 MIL/uL (3.63-4.92); WHITE BLOOD COUNT (AUTO) 5.6 K/uL (3.8-11.8)
[2018-10-30 07:45] LABS: BILIRUBIN,TOTAL 0.4 mg/dL (0.2-1.0); CREATININE 0.6 mg/dL (0.6-1.3); MAGNESIUM 1.5 mg/dL (1.8-2.4); POTASSIUM 4.5 mmol/L (3.5-5.1); TOTAL PROTEIN, SERUM 7.3 g/dL (6.4-8.2)
[2018-10-30] MEDS: METFORMIN HCL 500 MG TABLET PO SCH ×2 (08:29→18:05)
[2018-10-30] MEDS: OLANZAPINE 5 MG TABLET PO SCH ×2 (08:29→16:38)
[2018-10-30] MEDS: CHOLECALCIFEROL 1,000 UNIT TABLET PO SCH (08:29)
[2018-10-30] MEDS: MAGNESIUM SULFATE/D5W 100 ML IV SCH ×2 (08:29→09:21)
[2018-10-30] MEDS: FLUOXETINE HCL 20 MG CAPSULE PO SCH (08:30)
[2018-10-30] MEDS: ASPIRIN 81 MG TAB.CHEW PO SCH (08:30)
[2018-10-30] MEDS: METOPROLOL TARTRATE 25 MG TABLET PO SCH ×2 (08:37→22:05)
--- NOTE | 2018-10-30 11:52 | NUR ---
Patient seen and examined by MD Leahy with levaquin 500mg IV for PNE/pulmonary edema. Continue on oxygen 2-3LPM via nasal cannula. SPO2-96%. not in distress. no complait of pain/discomfort. will continue monitor
[2018-10-30 11:56] VITALS: BP 139/74
[2018-10-30] MEDS: LEVOFLOXACIN 500 MG/D5W 500 MG in PREMIXED 1 EACH IV SCH (14:26)
[2018-10-30] MEDS ORDERED: BISACODYL 5 MG TABLET.DR PO PRN (15:45)
[2018-10-30 16:19] VITALS: BP 118/71
[2018-10-30] MEDS: INSULIN REGULAR, HUMAN 300 UNIT/3 ML VIAL SQ PRN ×2 (16:38→22:11)
--- NOTE | 2018-10-30 17:53 | NUR ---
MD Leahy informed regarding possible d/c to [facility]. oxygen tank available bedside.
--- NOTE | 2018-10-30 19:30 | NUR ---
PATIENT RECEIVED LYING IN BED. A/O X2. NO SIGNS OF ACUTE DISTRESS. SAFETY AND COMFORT MEASURES PROVIDED. BED IN LOWEST POSITION. SIDE RAILS UPX2, CALL LIGHT WITHIN REACH.
[2018-10-30 19:43] VITALS: BP 139/86
[2018-10-30] MEDS ORDERED: ACETAMINOPHEN 325 MG TABLET PO PRN (20:30)
[2018-10-30] MEDS: ATORVASTATIN 20 MG TABLET PO SCH (22:00)
[2018-10-30] MEDS: MELATONIN 3 MG TABLET PO SCH (22:00)
--- NOTE | 2018-10-30 22:05 | NUR ---
PATIENT TEMPERATURE AT 100.3. CONTACTED DR. MIRANDA FOR TEMPERATURE. ORDERED CANCELLATION OF DISCHARGE. TYLENOL ADMINISTERED TO PATIENT. TOLERATED WELL.
[2018-10-31] MEDS: ALBUTEROL SULFATE 2.5 MG/3 ML NEBU NEB SCH ×6 (02:44→23:14)
[2018-10-31 05:17] VITALS: BP 134/79
--- NOTE | 2018-10-31 06:23 | NUR ---
PATIENT SLEPT INTERMITTENTLY. NO SIGNS OF ACUTE DISTRESS. COMFORT MEASURES AND SAFETY MEASURES PROVIDED. NO FEVER NOTED AT THIS TIME. SEROQUEL HELD DURING THE NIGHT DUE TO PATIENT OBSERVATION OF LETHARGY. WILL ENDORSE CARE TO ONCOMING SHIFT FOR CONTINUITY OF CARE. Addendum: 10/31/18 at 821 by IDALMIS MANRIQUE RN SEROQUEL WAS ALSO REFUSED BY PATIENT AND WASTED. Addendum: 11/01/18 at 0342 by IDALMIS MANRIQUE RN CORRECTION: SEROQUEL NOT ADMINISTERED TO PATIENT DUE TO LETHARGY AND PATIENT REFUSAL.
[2018-10-31] MEDS: BLOOD SUGAR DIAGNOSTIC 1 EACH STRIP VI SCH ×4 (08:12→21:15)
--- NOTE | 2018-10-31 08:22 | NUR ---
SPOKE WITH WOOD IN THE PHARMACY REGARDING PATIENT REFUSING SEROQUEL LAST NIGHT. I WAS INFORMED TO WASTE IT AND DOCUMENT IT. Addendum: 11/01/18 at 0721 by IDALMIS MANRIQUE RN WHEN PULLING MEDICATION OUT I ONLY PULLED OUT 1 OUT OF THE 2 TABLETS REQUIRED SINCE IT IS 1.5 TABLETS. REALIZED IT WHEN TRYING TO WASTE IT AND STATED 2 TABLETS. INFORMED PHARMACY.
[2018-10-31 08:49] VITALS: BP 130/69
[2018-10-31] MEDS: CHOLECALCIFEROL 1,000 UNIT TABLET PO SCH (08:55)
[2018-10-31] MEDS: OLANZAPINE 5 MG TABLET PO SCH ×2 (08:55→17:02)
[2018-10-31] MEDS: FLUOXETINE HCL 20 MG CAPSULE PO SCH (08:55)
[2018-10-31] MEDS: ASPIRIN 81 MG TAB.CHEW PO SCH (08:55)
[2018-10-31] MEDS: METFORMIN HCL 500 MG TABLET PO SCH ×2 (08:55→17:02)
[2018-10-31] MEDS: METOPROLOL TARTRATE 25 MG TABLET PO SCH ×2 (08:58→21:00)
--- NOTE | 2018-10-31 08:58 | NUR ---
INFORMATION SENT: FACESHEET, PROGRESS NOTES 10/30, 24 HRS REPORT, UR 10/30. INSURANCE NAME:[facility] FAX NUMBER: [phone] / [phone] FAX SENT
[2018-10-31 09:54] LABS: BILIRUBIN,TOTAL 0.4 mg/dL (0.2-1.0); CREATININE 0.8 mg/dL (0.6-1.3); PHOSPHOROUS 3.3 mg/dL (2.5-4.9); POTASSIUM 4.3 mmol/L (3.5-5.1); TOTAL PROTEIN, SERUM 7.6 g/dL (6.4-8.2)
[2018-10-31 09:56] LABS: BASOPHILS % (AUTO) 0.7 % (0.0-2.0); EOSINOPHILS # (AUTO) 0.1 K/uL (0.0-0.7); EOSINOPHILS % (AUTO) 0.9 % (0.0-7.0); LYMPHOCYTES # (AUTO) 1.3 K/uL (20.0-40.0); LYMPHOCYTES % (AUTO) 20.4 % (20.5-51.5); MEAN CORPUSCULAR HEMOGLOBIN 28.6 uug (24.7-32.8); MEAN CORPUSCULAR HGB CONC 32 g/dL (32.3-35.6); MEAN CORPUSCULAR VOLUME 90.5 fL (75.5-95.3); MONOCYTES # (AUTO) 0.7 K/uL (2.0-10.0); MONOCYTES % (AUTO) 10.5 % (0.0-11.0); NEUTROPHILS # (AUTO) 4.2 K/uL (1.8-8.9); NEUTROPHILS % (AUTO) 67.5 % (38.5-71.5); PLATELET COUNT (AUTO) 152 K/uL (179-408); WHITE BLOOD COUNT (AUTO) 6.3 K/uL (3.8-11.8)
[2018-10-31 09:58] LABS: MAGNESIUM 1.1 mg/dL (1.8-2.4)
--- NOTE | 2018-10-31 10:18 | NUR ---
Called to report Critical Lab Mg 1.1 to at 1013. Awaiting call back, will follow up.
[2018-10-31 10:30] VITALS: BP 124/80
--- NOTE | 2018-10-31 10:40 | NUR ---
Per Dr. Aquino: orders for magnesium sulfate 4 grams IV * 1, noted and carried out as ordered. Charge nurse aware of orders
[2018-10-31] MEDS: MAGNESIUM SULFATE/D5W 100 ML IV SCH ×4 (11:50→14:59)
[2018-10-31 15:50] VITALS: BP 116/68
--- NOTE | 2018-10-31 16:15 | NUR ---
Spoke to [facility] pharmacist, will send Levofloxacin up to floor. Not in medication room.
[2018-10-31] MEDS: LEVOFLOXACIN 500 MG/D5W 500 MG in PREMIXED 1 EACH IV SCH (16:50)
[2018-10-31] MEDS: INSULIN REGULAR, HUMAN 300 UNIT/3 ML VIAL SQ PRN (17:02)
--- NOTE | 2018-10-31 18:22 | NUR ---
Patient resting in bed comfortably. No distress noted or complaints of pain. Will endorse care to oncoming shift. No IV access, charge account authorizer made aware.
--- NOTE | 2018-10-31 19:45 | NUR ---
RECEIVED PATIENT ASLEEP IN BED. ON O2 3L NC SATING WELL. VSS. NO S/S OF PAIN OR DISCOMFORT. NO RESP. DISTRESS NOTED. F/C INTACT AND PATENT, DRAINING WELL. CALL LIGHT IN REACH, ALL NEEDS ATTENDED. WILL CONTINUE TO MONITOR.
[2018-10-31 20:00] VITALS: BP 111/50
[2018-10-31] MEDS: ATORVASTATIN 20 MG TABLET PO SCH ×2 (20:44→21:00)
[2018-10-31] MEDS: MELATONIN 3 MG TABLET PO SCH ×2 (20:45→21:00)
--- NOTE | 2018-10-31 21:15 | NUR ---
PATIENTS HS MEDS HELD AT THIS TIME. PATIENT IS ASLEEP IN BED. EASILY AROUSABLE BUT QUICKLY FALLS BACK SLEEP. NOT AWAKE ENOUGH AT THIS TIME TO TAKE MEDS. RESTAURANT RECRUITER NOTIFIED. WILL CONTINUE TO MONITOR AND ASSESS.
[2018-11-01] MEDS: ALBUTEROL SULFATE 2.5 MG/3 ML NEBU NEB SCH ×4 (03:19→15:23)
[2018-11-01 04:28] VITALS: BP 140/85
--- NOTE | 2018-11-01 05:35 | NUR ---
PATIENT ASLEEP IN BED. VSS. UNABLE TO INSERT IV ACCESS. WILL ENDORSE TO AM SHIFT. STUFFED CASING TIER NOTIFIED. NO RESP. DISTRESS NOTED. BED ALARM ON. CALL LIGHT IN REACH. ALL NEEDS ATTENDED. WILL CONTINUE TO MONITOR.
[2018-11-01 06:17] LABS: BASOPHILS % (AUTO) 0.5 % (0.0-2.0); EOSINOPHILS # (AUTO) 0.1 K/uL (0.0-0.7); EOSINOPHILS % (AUTO) 0.9 % (0.0-7.0); HEMATOCRIT 37.8 % (31.2-41.9); HEMOGLOBIN 11.9 g/dL (10.9-14.3); LYMPHOCYTES # (AUTO) 1.2 K/uL (20.0-40.0); LYMPHOCYTES % (AUTO) 18.7 % (20.5-51.5); MEAN CORPUSCULAR HEMOGLOBIN 28.4 uug (24.7-32.8); MEAN CORPUSCULAR HGB CONC 32 g/dL (32.3-35.6); MEAN CORPUSCULAR VOLUME 90.1 fL (75.5-95.3); MONOCYTES # (AUTO) 0.7 K/uL (2.0-10.0); MONOCYTES % (AUTO) 11.4 % (0.0-11.0); NEUTROPHILS # (AUTO) 4.5 K/uL (1.8-8.9); NEUTROPHILS % (AUTO) 68.5 % (38.5-71.5); PLATELET COUNT (AUTO) 153 K/uL (179-408); RED BLOOD CELL COUNT(AUTO) 4.19 MIL/uL (3.63-4.92); WHITE BLOOD COUNT (AUTO) 6.5 K/uL (3.8-11.8)
[2018-11-01 06:31] LABS: BILIRUBIN,TOTAL 0.4 mg/dL (0.2-1.0); CREATININE 0.6 mg/dL (0.6-1.3); MAGNESIUM 1.6 mg/dL (1.8-2.4); POTASSIUM 4.7 mmol/L (3.5-5.1); TOTAL PROTEIN, SERUM 7.8 g/dL (6.4-8.2)
[2018-11-01] MEDS: BLOOD SUGAR DIAGNOSTIC 1 EACH STRIP VI SCH ×2 (06:32→14:57)
--- NOTE | 2018-11-01 07:17 | NUR ---
SPOKE WITH EDGAR IN PHARMACY REGARDING SEROQUEL WASTE. SHE WILL CREDIT FOR THE 2 SEROQUEL INVENTORY. WASTED THE 1 TABLET INTO CORRECT MED WASTE BIN. FORGOT TO MICHELE WASTE IN THE [employer] SYSTEM AND CALLED TODAY TO UPDATE PHARMACY.
[2018-11-01] MEDS: CHOLECALCIFEROL 1,000 UNIT TABLET PO SCH (08:47)
[2018-11-01] MEDS: OLANZAPINE 5 MG TABLET PO SCH (08:49)
[2018-11-01] MEDS: FLUOXETINE HCL 20 MG CAPSULE PO SCH (08:50)
[2018-11-01] MEDS: METFORMIN HCL 500 MG TABLET PO SCH (08:50)
[2018-11-01] MEDS: ASPIRIN 81 MG TAB.CHEW PO SCH (08:50)
[2018-11-01] MEDS: METOPROLOL TARTRATE 25 MG TABLET PO SCH (08:59)
[2018-11-01] MEDS ORDERED: DOXY100C41 PO (10:35)
[2018-11-01] MEDS ORDERED: ALBU2.5V7 NEB (10:37)
[2018-11-01] MEDS ORDERED: OLAN5TAB3 PO (10:37)
[2018-11-01 12:03] VITALS: BP 113/67
[2018-11-01] MEDS ORDERED: MAGNESIUM OXIDE 400 MG TABLET PO ONE (14:30)
[2018-11-01] MEDS: LEVOFLOXACIN 500 MG/D5W 500 MG in PREMIXED 1 EACH IV SCH (15:01)
[2018-11-01 15:08] VITALS: BP 124/79
--- NOTE | 2018-11-01 15:25 | NUR ---
AMBULANCE HER TO PICK HER UP REFUSED D/C SKIN PICS SHE SAYS HER SKIN IS FINE AND SHE DOES NOT WANT ANYMORE PICS. I EXPLAINED THIS IS OUR ROUTINE SHE SAYS NO SHE IS READY TO GO.
== END 2018-11-01 16:45 | DRG 48 ==
LOC: ER 22:27 → TELE3 10-26 03:13 → MEDSURG3 10-28 17:46
PROVIDERS: ADMIT Internal Medicine Nephrology; ATTEND Internal Medicine Nephrology
DX: G90.8 Other disorders of autonomic nervous system (principal); J96.01 Acute respiratory failure with hypoxia; I50.31 Acute diastolic (congestive) heart failure; F33.3 Major depressive disorder, recurrent, severe with psychotic symptoms; R55 Syncope and collapse; E78.5 Hyperlipidemia, unspecified; F03.90 Unspecified dementia, unspecified severity, without behavioral disturbance, psychotic disturbance, mood disturbance, and anxiety; E11.9 Type 2 diabetes mellitus without complications; S00.83XA Contusion of other part of head, initial encounter; W18.30XA Fall on same level, unspecified, initial encounter; Y92.098 Other place in other non-institutional residence as the place of occurrence of the external cause; I11.0 Hypertensive heart disease with heart failure; I42.1 Obstructive hypertrophic cardiomyopathy; E87.2 Acidosis; Z86.73 Personal history of transient ischemic attack (TIA), and cerebral infarction without residual deficits; J43.9 Emphysema, unspecified; Z79.84 Long term (current) use of oral hypoglycemic drugs; Z79.899 Other long term (current) drug therapy
CPT/HCPCS: 36415; 36600; 70030-TC; 70450; 71045; 71250; 72125; 72192; 83605; 83735; 84100; 85025; 85730; 87040; 87086; 93005; 93307; 94640; 94664; 97110; 97116; 97530; A4663; G0378; J0360; J1815; J1940; J1956; J3475

== ENCOUNTER 2019-03-14 23:32 | Inpatient (IN) | payer MEDICAID ==
[~2019-03-14] VITALS: Ht 160 cm; Wt 61.7 kg
[~2019-03-14 23:32] MED LIST changes: +ALBU2.5V7 NEB; +DOXY100C41 PO; -LEVO500T2 PO; +OLAN20TA24 PO
[2019-03-14] MEDS ORDERED: MORPHINE SULFATE 2 MG/1 ML DISP.SYRIN IV ONE (23:45)
[2019-03-14] MEDS ORDERED: ONDANSETRON 4 MG/2 ML VIAL IV ONE (23:45)
[2019-03-15] MEDS ORDERED: MORPHINE SULFATE 4 MG/1 ML DISP.SYRIN ONE (00:17)
[2019-03-15] MEDS ORDERED: ONDANSETRON 4 MG/2 ML VIAL ONE (00:17)
[2019-03-15 00:34] LABS: CREATININE 0.7 mg/dL (0.6-1.3); POTASSIUM 3.8 mmol/L (3.5-5.1)
[2019-03-15 00:44] LABS: BASOPHILS % (AUTO) 0.6 % (0.0-2.0); EOSINOPHILS % (AUTO) 0.4 % (0.0-7.0); HEMATOCRIT 40.3 % (31.2-41.9); HEMOGLOBIN 12.8 g/dL (10.9-14.3); LYMPHOCYTES # (AUTO) 0.8 K/uL (20.0-40.0); LYMPHOCYTES % (AUTO) 11.5 % (20.5-51.5); MEAN CORPUSCULAR HEMOGLOBIN 28.2 uug (24.7-32.8); MEAN CORPUSCULAR HGB CONC 32 g/dL (32.3-35.6); MEAN CORPUSCULAR VOLUME 88.9 fL (75.5-95.3); MONOCYTES # (AUTO) 0.3 K/uL (2.0-10.0); MONOCYTES % (AUTO) 4.4 % (0.0-11.0); NEUTROPHILS # (AUTO) 6.1 K/uL (1.8-8.9); NEUTROPHILS % (AUTO) 83.1 % (38.5-71.5); PLATELET COUNT (AUTO) 173 K/uL (179-408); RED BLOOD CELL COUNT(AUTO) 4.53 MIL/uL (3.63-4.92); WHITE BLOOD COUNT (AUTO) 7.3 K/uL (3.8-11.8)
[2019-03-15 00:46] LABS: BILIRUBIN,DIRECT 0.1 mg/dL (0.0-0.2); BILIRUBIN,TOTAL 0.5 mg/dL (0.2-1.0); TOTAL PROTEIN, SERUM 7.8 g/dL (6.4-8.2)
[2019-03-15] MEDS ORDERED: IPRA0.2S48 NEB (02:40)
--- NOTE | 2019-03-15 03:13 | NUR ---
Report called to XENA Moyer on floor. Patient moved to floor. Patient had castillo catheter inserted prior to movement. Patient was incontinent of urine prior to castillo insertion.
--- NOTE | 2019-03-15 04:45 | NUR ---
pt a/o x 2, vital signs assessed and pt BP was high. Called MD to notify and received PRN order for hydralazine.
[2019-03-15] MEDS ORDERED: hydrALAZINE HCL 25 MG TABLET PO SCH (04:50)
[2019-03-15 04:57] VITALS: BP 180/106
[2019-03-15] MEDS: MORPHINE SULFATE 2 MG/1 ML DISP.SYRIN IV PRN ×3 (05:46→20:16)
--- NOTE | 2019-03-15 06:41 | NUR ---
pt is in bed with intermittent screaming due to pain. Pain medication has been administered per MD order. Will continue to monitor.
[2019-03-15 07:16] LABS: BASOPHILS % (AUTO) 0.3 % (0.0-2.0); HEMATOCRIT 43.2 % (31.2-41.9); HEMOGLOBIN 13.7 g/dL (10.9-14.3); LYMPHOCYTES # (AUTO) 0.6 K/uL (20.0-40.0); LYMPHOCYTES % (AUTO) 5.9 % (20.5-51.5); MEAN CORPUSCULAR HEMOGLOBIN 28.2 uug (24.7-32.8); MEAN CORPUSCULAR HGB CONC 32 g/dL (32.3-35.6); MONOCYTES # (AUTO) 0.5 K/uL (2.0-10.0); MONOCYTES % (AUTO) 4.9 % (0.0-11.0); NEUTROPHILS # (AUTO) 8.8 K/uL (1.8-8.9); NEUTROPHILS % (AUTO) 88.9 % (38.5-71.5); PLATELET COUNT (AUTO) 162 K/uL (179-408); RED BLOOD CELL COUNT(AUTO) 4.85 MIL/uL (3.63-4.92); WHITE BLOOD COUNT (AUTO) 9.9 K/uL (3.8-11.8)
[2019-03-15 07:42] LABS: CREATININE 0.7 mg/dL (0.6-1.3); PHOSPHOROUS 3.8 mg/dL (2.5-4.9); POTASSIUM 4.2 mmol/L (3.5-5.1)
--- NOTE | 2019-03-15 08:00 | NUR ---
Pt left leg shorter than right and externally rotated. Ice applied on left hip fracture for pain management. F/c draining clear yellow urine. Aspiration precaution implemented. IV on right hand intact. Pt would shout at times secondary to pain on left leg. Pt knows her name and forgetful. Call light is within reach.
[2019-03-15 09:12] VITALS: BP 156/95
[2019-03-15] MEDS: ASPIRIN 81 MG TAB.CHEW PO SCH ×2 (09:15→10:15)
--- NOTE | 2019-03-15 10:00 | NUR ---
Dr Sin binder roller here to evaluate patient. ECHO done by amado Campos. Awaiting ortho consult.
[2019-03-15] MEDS: CHOLECALCIFEROL 1,000 UNIT TABLET PO SCH (10:13)
[2019-03-15] MEDS: METFORMIN HCL 500 MG TABLET PO SCH ×2 (10:13→16:38)
[2019-03-15] MEDS: FLUOXETINE HCL 20 MG CAPSULE PO SCH (10:14)
[2019-03-15] MEDS: CARVEDILOL 3.125 MG TABLET PO SCH ×2 (10:14→16:38)
[2019-03-15] MEDS: OLANZAPINE 5 MG TABLET PO SCH ×2 (10:14→16:38)
[2019-03-15] MEDS: CLONIDINE HCL 0.1 MG TABLET PO SCH ×2 (10:14→21:38)
[2019-03-15] MEDS ORDERED: DEXTROSE 50% 50 ML DISP.SYRIN IV PRN (10:30)
[2019-03-15 11:23] VITALS: BP 165/111
[2019-03-15] MEDS: BLOOD SUGAR DIAGNOSTIC 1 EACH STRIP VI SCH ×3 (12:30→20:22)
[2019-03-15] MEDS: INSULIN REGULAR, HUMAN 300 UNIT/3 ML VIAL SQ PRN ×2 (12:34→16:45)
[2019-03-15] MEDS: ALBUTEROL SULFATE 2.5 MG/3 ML NEBU NEB SCH ×4 (14:25→23:28)
[2019-03-15] MEDS: MAGNESIUM SULFATE/D5W 100 ML IV SCH ×4 (14:49→17:45)
[2019-03-15 15:20] VITALS: BP 133/92
[2019-03-15 17:35] VITALS: BP 167/90
--- NOTE | 2019-03-15 18:30 | NUR ---
Pt's pain managed with morphine. Aspiration precaution effective. Call light is within reach.
--- NOTE | 2019-03-15 19:20 | NUR ---
RECEIVED PT AWAKE, ALERT AND ORIENTEDX2. PT SHOWS NO SIGNS OF ACUTE DISTRESS. IV INTACT. PT ON EPSTEIN CATHETER. PT ON NASAL CANNULA. SAFETY AND COMFORT PROVIDED. WILL CONTINUE TO MONITOR.
[2019-03-15] MEDS: IPRATROPIUM BROMIDE 0.5 MG/2.5 ML NEBU NEB PRN (19:48)
[2019-03-15 20:09] VITALS: BP 120/79
[2019-03-15] MEDS: BENZTROPINE MESYLATE 1 MG TABLET PO SCH (20:23)
[2019-03-15] MEDS: MELATONIN 3 MG TABLET PO SCH (20:23)
[2019-03-15] MEDS: ATORVASTATIN 20 MG TABLET PO SCH (20:23)
[2019-03-15] MEDS: INSULIN REGULAR, HUMAN 300 UNITS/3 ML VIAL SQ PRN (20:43)
[2019-03-16 00:24] VITALS: BP 109/76
[2019-03-16] MEDS: ALBUTEROL SULFATE 2.5 MG/3 ML NEBU NEB SCH ×6 (02:39→23:06)
[2019-03-16] MEDS: MORPHINE SULFATE 2 MG/1 ML DISP.SYRIN IV PRN ×2 (02:42→12:39)
[2019-03-16 05:05] VITALS: BP 115/71
--- NOTE | 2019-03-16 06:25 | NUR ---
PT SLEPT INTERMITTENTLY. PT SHOWS NO SIGNS OF ACUTE DISTRESS. PRESCRIBED MEDICATION GIVEN AND PT TOLERATED IT WELL. MORPHINE GIVEN FOR PAIN. PT TOLERATED IT WELL. PT SHOUT WHENEVER SHE WAKES UP AND MOVED HER LEGS. EPSTEIN CATHETER INTACT AND DWELLING WELL. PT ON NASAL CANNULA. SAFETY AND COMFORT PROVIDED. WILL ENDORSE ACCORDINGLY TO INCOMING NURSE FOR CONTINUITY OF CARE.
[2019-03-16] MEDS: BLOOD SUGAR DIAGNOSTIC 1 EACH STRIP VI SCH ×4 (06:33→21:01)
[2019-03-16 06:49] LABS: CREATININE 0.7 mg/dL (0.6-1.3); MAGNESIUM 2.1 mg/dL (1.8-2.4)
[2019-03-16] MEDS: IPRATROPIUM BROMIDE 0.5 MG/2.5 ML NEBU NEB PRN ×4 (07:46→19:27)
--- NOTE | 2019-03-16 08:00 | NUR ---
Notified Dr Pike that Dr Fowler didnt see the patient yesterday. Pt is in no acute distress. Continue to ice left hip. Left hip shorter than the right. F/c Draining well. IV on right hand intact. Call light is within reach. F/u with central regarding [facility] bed.
[2019-03-16] MEDS: CHOLECALCIFEROL 1,000 UNIT TABLET PO SCH (08:45)
[2019-03-16] MEDS: METFORMIN HCL 500 MG TABLET PO SCH ×2 (08:45→17:35)
[2019-03-16] MEDS: CARVEDILOL 3.125 MG TABLET PO SCH ×2 (08:46→17:35)
[2019-03-16] MEDS: CLONIDINE HCL 0.1 MG TABLET PO SCH ×2 (08:47→21:00)
[2019-03-16] MEDS: FLUOXETINE HCL 20 MG CAPSULE PO SCH (08:47)
[2019-03-16] MEDS: OLANZAPINE 5 MG TABLET PO SCH ×2 (08:49→17:35)
[2019-03-16] MEDS: ASPIRIN 81 MG TAB.CHEW PO SCH (09:00)
--- NOTE | 2019-03-16 09:00 | NUR ---
ASA held secondary to pt will have surgery tomorrow.
[2019-03-16 11:49] VITALS: BP 132/83
[2019-03-16] MEDS: INSULIN REGULAR, HUMAN 300 UNIT/3 ML VIAL SQ PRN (12:45)
[2019-03-16] MEDS ORDERED: POLYMYXIN B SULFATE 500,000 UNITS, BACITRACIN 50,000 UNITS, NORMAL SALINE 20 ML MC ONE ×3 (14:45)
[2019-03-16 16:00] VITALS: BP 116/78
--- NOTE | 2019-03-16 16:00 | NUR ---
Dr Fowler to do surgery at 730 am tomorrow. Attempted to contact [facility]. workers compensation claims analyst involved and stated that No family member or decision maker for the patient and that TWO doctors will sign the consent and procedure. Dr Pike ok with the Left hip hemiarthroplasty.
[2019-03-16] MEDS ORDERED: hydrALAZINE HCL 25 MG TABLET PO PRN (16:16)
--- NOTE | 2019-03-16 18:43 | NUR ---
Verified with Diesel Service Apprentice regarding consent and incapacitated form secondary to pt is demented and no family member. Both forms to be signed by two doctors with documentation of medical necessity. PT is in no acute distress. Call light is within reach.
--- NOTE | 2019-03-16 19:30 | NUR ---
Received patient comfortable and asleep in bed, no complaints at the moment. Noted patient for surgery tomorrow. Will continue to monitor.
[2019-03-16 20:00] VITALS: BP 109/74
[2019-03-16] MEDS: MELATONIN 3 MG TABLET PO SCH (21:01)
[2019-03-16] MEDS: ATORVASTATIN 20 MG TABLET PO SCH (21:01)
[2019-03-16] MEDS: BENZTROPINE MESYLATE 1 MG TABLET PO SCH (21:01)
[2019-03-16] MEDS: INSULIN REGULAR, HUMAN 300 UNITS/3 ML VIAL SQ PRN (21:04)
[2019-03-16] MEDS ORDERED: IV D5 1/2 NS 1000 ML 1,000 ML IV PRN (22:00)
--- NOTE | 2019-03-16 22:00 | NUR ---
Contacted Dr. Pike for possible order for IV fluid since patient will be NPO after midnight in preparation for surgery.
[2019-03-17] VITALS: BP 110/75
[2019-03-17] MEDS: ALBUTEROL SULFATE 2.5 MG/3 ML NEBU NEB SCH ×6 (03:15→21:06)
[2019-03-17 04:00] VITALS: BP 154/89
--- NOTE | 2019-03-17 06:27 | NUR ---
Patient maintained NPO after midnight, IV fluid was started as ordered. Patient slept well throughout the night and did not complaint of severe pain. Patient for surgery this AM, report already given to BRANDI Griffin RN. Will Continue to monitor until transfer to OR.
[2019-03-17] MEDS: BLOOD SUGAR DIAGNOSTIC 1 EACH STRIP VI SCH ×4 (06:32→20:50)
[2019-03-17] MEDS ORDERED: VANCOMYCIN 1000 MG VIAL ONE (06:46)
[2019-03-17] MEDS ORDERED: HYDROMORPHONE 2 MG/1 ML DISP.SYRIN ONE (07:27)
[2019-03-17] MEDS ORDERED: ROCURONIUM BROMIDE 50 MG/5 ML VIAL ONE (07:27)
--- NOTE | 2019-03-17 07:36 | NUR ---
Patient left to OR by bed with two OR nurses
[2019-03-17] MEDS: CARVEDILOL 3.125 MG TABLET PO SCH ×2 (08:00→17:42)
[2019-03-17] MEDS: METFORMIN HCL 500 MG TABLET PO SCH ×2 (08:00→17:42)
[2019-03-17] MEDS: CLONIDINE HCL 0.1 MG TABLET PO SCH ×2 (09:00→20:52)
[2019-03-17] MEDS: OLANZAPINE 5 MG TABLET PO SCH ×2 (09:00→17:42)
[2019-03-17] MEDS: FLUOXETINE HCL 20 MG CAPSULE PO SCH (09:00)
[2019-03-17] MEDS: ASPIRIN 81 MG TAB.CHEW PO SCH (09:00)
[2019-03-17] MEDS: CHOLECALCIFEROL 1,000 UNIT TABLET PO SCH (09:00)
--- NOTE | 2019-03-17 09:37 | NUR ---
Not admin meds 0800 and 0900, patient still in the OR
[2019-03-17] MEDS ORDERED: ALBUTEROL SULFATE 2.5 MG/3 ML NEBU ONE (09:49)
[2019-03-17] MEDS ORDERED: MORPHINE SULFATE 2 MG/1 ML DISP.SYRIN IV PRN (10:00)
[2019-03-17 11:10] VITALS: BP 136/82
[2019-03-17] MEDS: POTASSIUM CHLORIDE 20 MEQ in IV D5 1/2 NS 1000 ML 1,000 ML IV PRN (12:31)
[2019-03-17] MEDS: INSULIN REGULAR, HUMAN 300 UNIT/3 ML VIAL SQ PRN ×2 (12:45→17:00)
[2019-03-17 15:56] VITALS: BP 113/69
[2019-03-17] MEDS: CEFAZOLIN 1 G in IV DEXTROSE 5% 50 ML IV SCH ×2 (17:02→23:51)
[2019-03-17 17:10] LABS: BASOPHILS % (AUTO) 0.3 % (0.0-2.0); EOSINOPHILS % (AUTO) 0.1 % (0.0-7.0); HEMATOCRIT 40.6 % (31.2-41.9); LYMPHOCYTES # (AUTO) 0.9 K/uL (20.0-40.0); LYMPHOCYTES % (AUTO) 10.6 % (20.5-51.5); MEAN CORPUSCULAR HEMOGLOBIN 27.4 uug (24.7-32.8); MEAN CORPUSCULAR HGB CONC 31 g/dL (32.3-35.6); MONOCYTES # (AUTO) 0.6 K/uL (2.0-10.0); MONOCYTES % (AUTO) 6.8 % (0.0-11.0); NEUTROPHILS % (AUTO) 82.2 % (38.5-71.5); PLATELET COUNT (AUTO) 176 K/uL (179-408); RED BLOOD CELL COUNT(AUTO) 4.61 MIL/uL (3.63-4.92); WHITE BLOOD COUNT (AUTO) 8.5 K/uL (3.8-11.8)
[2019-03-17 17:14] LABS: CREATININE 0.8 mg/dL (0.6-1.3); POTASSIUM 4.6 mmol/L (3.5-5.1)
[2019-03-17 17:19] LABS: HEMOGLOBIN 12.7 g/dL (10.9-14.3)
--- NOTE | 2019-03-17 18:33 | NUR ---
Patient AO1, no SOB or distress, no pain reported, VS [id number] and BP med given, swallow eval was done with ice cubes. Safety maintained this shift
[2019-03-17 20:00] VITALS: BP 138/84
[2019-03-17] MEDS: BENZTROPINE MESYLATE 1 MG TABLET PO SCH (20:51)
[2019-03-17] MEDS: HYDROCODONE/APAP 10-325 MG TABLET PO PRN (20:51)
[2019-03-17] MEDS: MELATONIN 3 MG TABLET PO SCH (20:52)
[2019-03-17] MEDS: ATORVASTATIN 20 MG TABLET PO SCH (20:52)
[2019-03-17] MEDS: INSULIN REGULAR, HUMAN 300 UNITS/3 ML VIAL SQ PRN (20:55)
[2019-03-17] MEDS: IPRATROPIUM BROMIDE 0.5 MG/2.5 ML NEBU NEB PRN (21:06)
[2019-03-18] VITALS: BP 142/91
[2019-03-18] MEDS: IPRATROPIUM BROMIDE 0.5 MG/2.5 ML NEBU NEB PRN ×2 (00:59→04:37)
[2019-03-18] MEDS: ALBUTEROL SULFATE 2.5 MG/3 ML NEBU NEB SCH ×7 (00:59→23:29)
[2019-03-18] MEDS: POTASSIUM CHLORIDE 20 MEQ in IV D5 1/2 NS 1000 ML 1,000 ML IV PRN ×2 (02:55→18:33)
[2019-03-18 04:00] VITALS: BP 125/85
[2019-03-18] MEDS: BLOOD SUGAR DIAGNOSTIC 1 EACH STRIP VI SCH ×4 (06:42→21:17)
[2019-03-18 06:50] LABS: CREATININE 0.6 mg/dL (0.6-1.3); POTASSIUM 4.3 mmol/L (3.5-5.1)
--- NOTE | 2019-03-18 06:53 | NUR ---
pt rested well in between care; no acute distress; awake at times; offered [place] but declined; repositioned q2h; continued application of ice to left hip; dressing to left hip, C/D/I
--- NOTE | 2019-03-18 07:05 | NUR ---
RECEIVED PATIENT IN BED. PATIENT DENIES CHEST PAIN OR SOB. PATIENT COMPLAINS OF LT. LEG PAIN BUT DOES NOT WANT MEDICATIONS AT THIS TIME. PULSES TO BILATERAL LOWER LEGS ARE STRONG. ALL NEEDS MET AT THIS TIME. WILL CONTINUE TO MONITOR. SAFETY AND FALL PREVENTION IN PLACE. BED IN LOW POSITION AND LOCKED. CALL LIGHT IN REACH.
[2019-03-18] MEDS: OLANZAPINE 5 MG TABLET PO SCH ×2 (08:50→17:53)
[2019-03-18] MEDS: FLUOXETINE HCL 20 MG CAPSULE PO SCH (08:50)
[2019-03-18] MEDS: CLONIDINE HCL 0.1 MG TABLET PO SCH ×2 (08:51→21:00)
[2019-03-18] MEDS: CHOLECALCIFEROL 1,000 UNIT TABLET PO SCH (08:51)
[2019-03-18] MEDS: ASPIRIN 81 MG TAB.CHEW PO SCH (08:56)
[2019-03-18] MEDS: METFORMIN HCL 500 MG TABLET PO SCH ×2 (08:56→17:55)
[2019-03-18] MEDS: CARVEDILOL 3.125 MG TABLET PO SCH ×2 (08:57→17:57)
[2019-03-18] MEDS: HYDROCODONE/APAP 10-325 MG TABLET PO PRN (08:57)
[2019-03-18 09:23] LABS: MEAN CORPUSCULAR HGB CONC 32 g/dL (32.3-35.6)
[2019-03-18 09:24] LABS: BASOPHILS % (AUTO) 0.2 % (0.0-2.0); EOSINOPHILS % (AUTO) 0.5 % (0.0-7.0); LYMPHOCYTES # (AUTO) 0.9 K/uL (20.0-40.0); LYMPHOCYTES % (AUTO) 14.8 % (20.5-51.5); MONOCYTES # (AUTO) 0.9 K/uL (2.0-10.0); MONOCYTES % (AUTO) 14.5 % (0.0-11.0); NEUTROPHILS # (AUTO) 4.5 K/uL (1.8-8.9)
[2019-03-18 09:31] LABS: HEMOGLOBIN 11.9 g/dL (10.9-14.3); RED BLOOD CELL COUNT(AUTO) 3.96 MIL/uL (3.63-4.92)
[2019-03-18 09:32] LABS: HEMATOCRIT 35.5 % (31.2-41.9); MEAN CORPUSCULAR HEMOGLOBIN 28.5 uug (24.7-32.8); MEAN CORPUSCULAR VOLUME 89.6 fL (75.5-95.3)
[2019-03-18 09:35] LABS: PLATELET COUNT (AUTO) 85 K/uL (179-408)
[2019-03-18 09:43] LABS: BAND % (MANUAL) 2 % (0-10); EOSINOPHILS % (MANUAL) 2 % (0-8); LYMPHOCYTES % (MANUAL) 18 % (20-40); MONOCYTES % (MANUAL) 16 % (2-10); NEUTROPHILS % (MANUAL) 62 % (42-75)
[2019-03-18 11:19] VITALS: BP 96/46
[2019-03-18] MEDS: INSULIN REGULAR, HUMAN 300 UNIT/3 ML VIAL SQ PRN (12:44)
[2019-03-18 15:13] VITALS: BP 105/71
--- NOTE | 2019-03-18 18:43 | NUR ---
PATIENT STABLE THROUGHOUT THE SHIFT. ALL NEEDS MET. SAFETY AND FALL PREVENTION IN PLACE. WILL GIVE REPORT TO ONCOMING NURSE.
[2019-03-18 19:30] VITALS: BP 92/55
--- NOTE | 2019-03-18 19:30 | NUR ---
Received patient resting in bed, patient seems to be lethargic, but able to arouse. No signs of acute distress noted. No signs of pain or SOB noted. IVF running on the left forearm, no s/s of infiltration noted. Garcia catheter is intact and draining clear, yellow urine. Abductor pillow is in place. No drainage noted to left hip dressing. Safety measures initiated, Bed is low and locked, call light within reach. Will continue to monitor.
[2019-03-18] MEDS: MELATONIN 3 MG TABLET PO SCH (21:00)
[2019-03-18] MEDS: ATORVASTATIN 20 MG TABLET PO SCH (21:05)
[2019-03-18] MEDS: BENZTROPINE MESYLATE 1 MG TABLET PO SCH (21:05)
[2019-03-18] MEDS: INSULIN REGULAR, HUMAN 300 UNITS/3 ML VIAL SQ PRN (21:18)
[2019-03-19 00:30] VITALS: BP 121/71
[2019-03-19] MEDS: ALBUTEROL SULFATE 2.5 MG/3 ML NEBU NEB SCH ×6 (03:38→23:13)
[2019-03-19 04:00] VITALS: BP 136/89
--- NOTE | 2019-03-19 05:42 | NUR ---
Patient slept well throughout shift. No signs of acute distress noted. No complaints of pain or SOB. IVF running on the left forearm, no s/s of infection or infiltration noted. Garcia catheter has been removed, 2nd day post-op. Will do bladder scan and endorse to next shift to monitor. Patient has been NSR on TELE monitor. Safety measures given
[2019-03-19] MEDS: BLOOD SUGAR DIAGNOSTIC 1 EACH STRIP VI SCH ×4 (06:33→20:46)
[2019-03-19] MEDS: POTASSIUM CHLORIDE 20 MEQ in IV D5 1/2 NS 1000 ML 1,000 ML IV PRN (07:57)
--- NOTE | 2019-03-19 08:00 | NUR ---
AWAKE ALERT AND VERBALLY RESPONSIVE, NO SS OF DISTRESS SR ON MONITOR
[2019-03-19] MEDS: CHOLECALCIFEROL 1,000 UNIT TABLET PO SCH (08:07)
[2019-03-19] MEDS: FLUOXETINE HCL 20 MG CAPSULE PO SCH (08:07)
[2019-03-19] MEDS: CARVEDILOL 3.125 MG TABLET PO SCH ×2 (08:08→17:08)
[2019-03-19] MEDS: CLONIDINE HCL 0.1 MG TABLET PO SCH ×2 (08:08→20:42)
[2019-03-19] MEDS: METFORMIN HCL 500 MG TABLET PO SCH ×2 (08:08→17:08)
[2019-03-19] MEDS: OLANZAPINE 5 MG TABLET PO SCH ×2 (08:08→17:07)
[2019-03-19] MEDS: ASPIRIN 81 MG TAB.CHEW PO SCH (08:08)
--- NOTE | 2019-03-19 10:30 | NUR ---
SEEN BY OT AND PT FOR FOR THERAPY SEE NOTES
[2019-03-19] MEDS: INSULIN REGULAR, HUMAN 300 UNIT/3 ML VIAL SQ PRN ×2 (11:31→17:03)
[2019-03-19] MEDS: HYDROCODONE/APAP 10-325 MG TABLET PO PRN (11:34)
[2019-03-19 11:54] VITALS: BP 117/73
--- NOTE | 2019-03-19 13:30 | NUR ---
SEEN BY JAY OVALLES AND DR SPAULDING FOR CARDIO FOLLOW-UP SEE NOTES
[2019-03-19] MEDS: LEVOFLOXACIN 750MG/D5W 750 MG in PREMIXED 1 EACH IV SCH (14:31)
[2019-03-19 14:49] LABS: BASOPHILS # (AUTO) 0.1 K/uL (0.0-8.0); BASOPHILS % (AUTO) 0.8 % (0.0-2.0); EOSINOPHILS # (AUTO) 0.1 K/uL (0.0-0.7); EOSINOPHILS % (AUTO) 1.5 % (0.0-7.0); HEMATOCRIT 32.3 % (31.2-41.9); HEMOGLOBIN 10.2 g/dL (10.9-14.3); LYMPHOCYTES # (AUTO) 1.3 K/uL (20.0-40.0); LYMPHOCYTES % (AUTO) 18.7 % (20.5-51.5); MEAN CORPUSCULAR HEMOGLOBIN 28.1 uug (24.7-32.8); MEAN CORPUSCULAR HGB CONC 31 g/dL (32.3-35.6); MEAN CORPUSCULAR VOLUME 89.4 fL (75.5-95.3); MONOCYTES # (AUTO) 0.8 K/uL (2.0-10.0); MONOCYTES % (AUTO) 11.3 % (0.0-11.0); NEUTROPHILS # (AUTO) 4.5 K/uL (1.8-8.9); NEUTROPHILS % (AUTO) 67.7 % (38.5-71.5); PLATELET COUNT (AUTO) 132 K/uL (179-408); RED BLOOD CELL COUNT(AUTO) 3.62 MIL/uL (3.63-4.92); WHITE BLOOD COUNT (AUTO) 6.7 K/uL (3.8-11.8)
[2019-03-19 14:53] LABS: CREATININE 0.6 mg/dL (0.6-1.3); POTASSIUM 4.1 mmol/L (3.5-5.1)
[2019-03-19 16:00] VITALS: BP 102/54
--- NOTE | 2019-03-19 19:30 | NUR ---
Received patient resting in bed easily to arouse. No signs of acute distress noted. No complaints of pain or SOB at this time. IVF running on the right hand, no s/s of infection or infiltration noted. Abductor pillow is in place. Safety measures initiated. Bed is low and locked, call light within reach. Will continue to monitor.
[2019-03-19] MEDS: IPRATROPIUM BROMIDE 0.5 MG/2.5 ML NEBU NEB PRN (19:35)
[2019-03-19 20:00] VITALS: BP 106/55
[2019-03-19] MEDS: ATORVASTATIN 20 MG TABLET PO SCH (20:36)
[2019-03-19] MEDS: MELATONIN 3 MG TABLET PO SCH (20:36)
[2019-03-19] MEDS: BENZTROPINE MESYLATE 1 MG TABLET PO SCH (20:36)
[2019-03-20] VITALS: BP 109/61
[2019-03-20] MEDS: POTASSIUM CHLORIDE 20 MEQ in IV D5 1/2 NS 1000 ML 1,000 ML IV PRN (01:59)
[2019-03-20] MEDS: IPRATROPIUM BROMIDE 0.5 MG/2.5 ML NEBU NEB PRN (02:47)
[2019-03-20] MEDS: ALBUTEROL SULFATE 2.5 MG/3 ML NEBU NEB SCH ×4 (02:47→15:21)
[2019-03-20 04:00] VITALS: BP 138/75
[2019-03-20] MEDS: BLOOD SUGAR DIAGNOSTIC 1 EACH STRIP VI SCH ×3 (06:36→16:39)
[2019-03-20 06:40] LABS: BASOPHILS % (AUTO) 0.5 % (0.0-2.0); EOSINOPHILS # (AUTO) 0.1 K/uL (0.0-0.7); EOSINOPHILS % (AUTO) 1.5 % (0.0-7.0); HEMATOCRIT 30.1 % (31.2-41.9); HEMOGLOBIN 9.5 g/dL (10.9-14.3); LYMPHOCYTES # (AUTO) 1.1 K/uL (20.0-40.0); LYMPHOCYTES % (AUTO) 15.9 % (20.5-51.5); MEAN CORPUSCULAR HEMOGLOBIN 28.2 uug (24.7-32.8); MEAN CORPUSCULAR HGB CONC 31 g/dL (32.3-35.6); MEAN CORPUSCULAR VOLUME 89.7 fL (75.5-95.3); MONOCYTES # (AUTO) 0.8 K/uL (2.0-10.0); MONOCYTES % (AUTO) 11.4 % (0.0-11.0); NEUTROPHILS # (AUTO) 5.1 K/uL (1.8-8.9); NEUTROPHILS % (AUTO) 70.7 % (38.5-71.5); PLATELET COUNT (AUTO) 117 K/uL (179-408); RED BLOOD CELL COUNT(AUTO) 3.36 MIL/uL (3.63-4.92); WHITE BLOOD COUNT (AUTO) 7.2 K/uL (3.8-11.8)
[2019-03-20 07:01] LABS: CREATININE 0.6 mg/dL (0.6-1.3); POTASSIUM 4.5 mmol/L (3.5-5.1)
[2019-03-20] MEDS: CHOLECALCIFEROL 1,000 UNIT TABLET PO SCH (10:28)
[2019-03-20] MEDS: METFORMIN HCL 500 MG TABLET PO SCH (10:28)
[2019-03-20] MEDS: FLUOXETINE HCL 20 MG CAPSULE PO SCH (10:28)
[2019-03-20] MEDS: OLANZAPINE 5 MG TABLET PO SCH ×2 (10:28→16:40)
[2019-03-20] MEDS: ASPIRIN 81 MG TAB.CHEW PO SCH (10:29)
[2019-03-20 11:13] VITALS: BP 105/69
[2019-03-20] MEDS: CARVEDILOL 3.125 MG TABLET PO SCH (11:32)
[2019-03-20] MEDS: CLONIDINE HCL 0.1 MG TABLET PO SCH (11:33)
[2019-03-20] MEDS ORDERED: LEVO750T46 PO (12:21)
[2019-03-20] MEDS ORDERED: ENOX40DI SQ (12:24)
[2019-03-20] MEDS: LEVOFLOXACIN 750MG/D5W 750 MG in PREMIXED 1 EACH IV SCH (13:18)
[2019-03-20 15:01] VITALS: BP 102/58
[2019-03-20] MEDS ORDERED: INFLUENZA VACCINE 2019-2020 0.5 ML DISP.SYRIN IM ONE (16:15)
[2019-03-20] MEDS ORDERED: IV NORMAL SALINE 1000 ML BAG IV ONE (17:29)
[2019-03-20] MEDS ORDERED: ONDANSETRON 4 MG/2 ML VIAL IV ONE (17:29)
[2019-03-20] MEDS ORDERED: PHENYLEPHRINE 10 MG/1 ML VIAL IV ONE (17:29)
[2019-03-20] MEDS ORDERED: LIDOCAINE-MPF 2% 5 ML VIAL IJ ONE (17:29)
[2019-03-20] MEDS ORDERED: NEOSTIGMINE METHYLSULFATE 10 MG/10 ML VIAL IM ONE (17:29)
[2019-03-20] MEDS ORDERED: DEXAMETHASONE SOD PHOSPHATE 4 MG INJ IV ONE (17:29)
[2019-03-20] MEDS ORDERED: SEVOFLURANE 250 ML BOTTLE IH ONE (17:29)
[2019-03-20] MEDS ORDERED: CEFAZOLIN 1 G VIAL IM ONE (17:29)
[2019-03-20] MEDS ORDERED: PROPOFOL 200 MG/20 ML BOTTLE IV ONE (17:29)
[2019-03-20] MEDS ORDERED: GLYCOPYRROLATE 0.2 MG/ML VIAL IJ ONE (17:29)
[2019-03-20] MEDS ORDERED: ASPI-605 PO (18:11)
[2019-03-20] MEDS ORDERED: ENOXAPARIN SODIUM 40 MG/0.4 ML DISP.SYRIN SQ SCH (21:00)
== END 2019-03-20 17:30 | DRG 301 ==
LOC: ER 23:32 → MEDSURG3 03-15 03:26 → TELE3 03-15 10:27
PROVIDERS: ADMIT Internal Medicine; ATTEND Internal Medicine
PROC: 0SRS0JA Replacement of Left Hip Joint, Femoral Surface with Synthetic Substitute, Uncemented, Open Approach (ICD-10-PCS; principal; 2019-03-17)
DX: S72.002A Fracture of unspecified part of neck of left femur, initial encounter for closed fracture (principal); J96.20 Acute and chronic respiratory failure, unspecified whether with hypoxia or hypercapnia; J15.9 Unspecified bacterial pneumonia; E44.0 Moderate protein-calorie malnutrition; I11.0 Hypertensive heart disease with heart failure; D69.6 Thrombocytopenia, unspecified; I50.32 Chronic diastolic (congestive) heart failure; W18.30XA Fall on same level, unspecified, initial encounter; Y92.099 Unspecified place in other non-institutional residence as the place of occurrence of the external cause; E78.5 Hyperlipidemia, unspecified; Z79.82 Long term (current) use of aspirin; E83.42 Hypomagnesemia; E11.9 Type 2 diabetes mellitus without complications; Z86.73 Personal history of transient ischemic attack (TIA), and cerebral infarction without residual deficits; Z79.899 Other long term (current) drug therapy; F03.90 Unspecified dementia, unspecified severity, without behavioral disturbance, psychotic disturbance, mood disturbance, and anxiety; R50.82 Postprocedural fever; J44.0 Chronic obstructive pulmonary disease with (acute) lower respiratory infection
CPT/HCPCS: 36415; 70030-TC; 71045; 72192; 83735; 84100; 85025; 85730; 93005; 93307; 94640; 94664; A4649; A4663; C1776; G0378; J0690; J1100; J1170; J1815; J1956; J2270; J2370; J2405; J2710; J3370; J3475; J3480; J3490; J3590; J7030; J7060

== ENCOUNTER 2019-03-19 12:15 | Inpatient (IN) | payer MEDICAID ==
[~2019-03-19] VITALS: Ht 162.6 cm; Wt 76.7 kg
[~2019-03-19 12:15] MED LIST changes: -ASPI81TA31 PO; -DOXY100C41 PO; +IPRA0.2S48 NEB; -MELA3TAB PO; +MELA3TAB63 PO; -METF-440 PO; -OLAN10TA3 PO; -OLAN20TA24 PO
[2019-03-20] MEDS ORDERED: LEVO750T46 PO (12:21)
[2019-03-20] MEDS ORDERED: ENOX40DI SQ (12:24)
[2019-03-20 18:00] VITALS: BP 111/65
[2019-03-20] MEDS ORDERED: ASPI-605 PO (18:11)
--- NOTE | 2019-03-20 19:40 | NUR ---
ADMISSION: Admitted Pt. from [facility] at 5:20pm. Patient is A & O x 3. IN No acute distress. Patient on O2 at 2lpm via NC; O2 saturation of 97%Vital signs taken and stable. Called overhead distribution engineer admission to reconcile medications. Endorsed to next shift and will continue with care.
[2019-03-20 21:31] VITALS: BP 108/63
--- NOTE | 2019-03-21 00:01 | NUR ---
pt was febrile with a temp of 100.1. orthopedically impaired teacher EPIC MD notified for orders. MD called back with medication orders and was also able to reconcile medications. pt is currently stable, denies any pain, is resting comfortably in bed. hourly rounding done to promote patient safety
[2019-03-21] MEDS: ALBUTEROL SULFATE 2.5 MG/3 ML NEBU NEB SCH ×6 (01:00→19:30)
[2019-03-21] MEDS: ACETAMINOPHEN 325 MG TABLET PO PRN ×2 (01:06→20:29)
[2019-03-21] MEDS: ENOXAPARIN SODIUM 40 MG/0.4 ML DISP.SYRIN SQ SCH (01:08)
[2019-03-21] MEDS: IPRATROPIUM BROMIDE 0.5 MG/2.5 ML NEBU NEB PRN ×2 (03:55→18:27)
[2019-03-21 05:09] VITALS: BP 141/82
[2019-03-21] MEDS: CARVEDILOL 3.125 MG TABLET PO SCH ×2 (08:00→17:38)
[2019-03-21 08:14] VITALS: BP 129/76
[2019-03-21] MEDS: CLONIDINE HCL 0.1 MG TABLET PO SCH ×2 (09:18→20:29)
[2019-03-21] MEDS: FLUOXETINE HCL 20 MG CAPSULE PO SCH (09:19)
[2019-03-21] MEDS: ASPIRIN EC 81 MG TABLET.DR PO SCH (09:19)
[2019-03-21] MEDS: OLANZAPINE 5 MG TABLET PO SCH ×2 (09:19→17:37)
[2019-03-21] MEDS: CHOLECALCIFEROL 1,000 UNIT TABLET PO SCH (09:19)
[2019-03-21] MEDS: LEVOFLOXACIN 750 MG TABLET PO SCH (13:39)
--- NOTE | 2019-03-21 15:44 | NUR ---
Patient A&O x 2-3, in stable condition, No acute distress noted. on O2 NC at 2lpm with O2 saturation of 95% Afebrile. Spoke with Dr. Acosta regarding accu checks and Diabetes medication; with an order for Moderate sliding scale, Chest X - Ray and lab orders. Due medications administered as ordered and scheduled tolerated well. Needs attended, safety measures in place and will continue with care.
[2019-03-21] MEDS ORDERED: INSULIN REGULAR, HUMAN 300 UNIT/3 ML VIAL SQ PRN ×2 (15:45→16:15)
[2019-03-21] MEDS ORDERED: DEXTROSE 50% 50 ML DISP.SYRIN IV PRN ×2 (15:45→16:15)
[2019-03-21 15:47] VITALS: BP 114/76
[2019-03-21] MEDS ORDERED: INSULIN REGULAR, HUMAN 300 UNITS/3 ML VIAL SQ PRN (16:15)
[2019-03-21] MEDS ORDERED: BLOOD SUGAR DIAGNOSTIC 1 EACH STRIP VI SCH (16:30)
[2019-03-21] MEDS: BLOOD SUGAR DIAGNOSTIC 1 EACH STRIP VI SCH ×2 (16:48→20:26)
[2019-03-21] MEDS: ALBUTEROL SULFATE 2.5 MG/ 0.5 ML NEBU NEB PRN (18:27)
[2019-03-21] MEDS: BENZTROPINE MESYLATE 1 MG TABLET PO SCH (20:29)
[2019-03-21] MEDS: MELATONIN 3 MG TABLET PO SCH (20:29)
[2019-03-21] MEDS: ATORVASTATIN 20 MG TABLET PO SCH (20:29)
[2019-03-21] MEDS: INSULIN REGULAR, HUMAN 300 UNITS/3 ML VIAL SQ PRN (20:30)
[2019-03-21 20:35] VITALS: BP 112/67
--- NOTE | 2019-03-21 21:50 | NUR ---
Received pt resting in bed. AAO x2-3. On 1L O2 via NC, no acute distress noted. Blood sugar of 115, no insulin coverage as per sliding scale. Due meds given as ordered. Safety measures maintained. Call light and personal items within reach. Will continue to monitor.
[2019-03-22] MEDS: ENOXAPARIN SODIUM 40 MG/0.4 ML DISP.SYRIN SQ SCH ×2 (01:05→23:36)
[2019-03-22] MEDS: ALBUTEROL SULFATE 2.5 MG/ 0.5 ML NEBU NEB PRN (01:13)
[2019-03-22] MEDS: ALBUTEROL SULFATE 2.5 MG/3 ML NEBU NEB SCH ×6 (03:30→23:30)
[2019-03-22 05:17] VITALS: BP 98/69
[2019-03-22] MEDS: BLOOD SUGAR DIAGNOSTIC 1 EACH STRIP VI SCH ×4 (06:33→20:34)
[2019-03-22 07:38] LABS: BASOPHILS % (AUTO) 0.8 % (0.0-2.0); EOSINOPHILS # (AUTO) 0.1 K/uL (0.0-0.7); HEMATOCRIT 28.9 % (31.2-41.9); HEMOGLOBIN 9.3 g/dL (10.9-14.3); LYMPHOCYTES % (AUTO) 17.3 % (20.5-51.5); MEAN CORPUSCULAR HEMOGLOBIN 28.5 uug (24.7-32.8); MEAN CORPUSCULAR HGB CONC 32 g/dL (32.3-35.6); MEAN CORPUSCULAR VOLUME 88.7 fL (75.5-95.3); MONOCYTES # (AUTO) 0.7 K/uL (2.0-10.0); MONOCYTES % (AUTO) 12.3 % (0.0-11.0); NEUTROPHILS % (AUTO) 68.6 % (38.5-71.5); PLATELET COUNT (AUTO) 154 K/uL (179-408); RED BLOOD CELL COUNT(AUTO) 3.26 MIL/uL (3.63-4.92); WHITE BLOOD COUNT (AUTO) 5.8 K/uL (3.8-11.8)
[2019-03-22 07:39] LABS: CREATININE 0.7 mg/dL (0.6-1.3); POTASSIUM 4.1 mmol/L (3.5-5.1)
[2019-03-22] MEDS: IPRATROPIUM BROMIDE 0.5 MG/2.5 ML NEBU NEB PRN (08:59)
[2019-03-22 09:46] VITALS: BP 113/67
[2019-03-22] MEDS: OLANZAPINE 5 MG TABLET PO SCH ×2 (10:52→18:19)
[2019-03-22] MEDS: CARVEDILOL 3.125 MG TABLET PO SCH ×2 (10:53→18:20)
[2019-03-22] MEDS: FLUOXETINE HCL 20 MG CAPSULE PO SCH (10:53)
[2019-03-22] MEDS: CHOLECALCIFEROL 1,000 UNIT TABLET PO SCH (10:54)
[2019-03-22] MEDS: CLONIDINE HCL 0.1 MG TABLET PO SCH ×2 (10:55→20:33)
[2019-03-22] MEDS: ASPIRIN EC 81 MG TABLET.DR PO SCH (10:55)
[2019-03-22] MEDS: LEVOFLOXACIN 750 MG TABLET PO SCH (14:26)
[2019-03-22 16:30] VITALS: BP 112/74
[2019-03-22] MEDS: MELATONIN 3 MG TABLET PO SCH (20:33)
[2019-03-22] MEDS: BENZTROPINE MESYLATE 1 MG TABLET PO SCH (20:33)
[2019-03-22] MEDS: ATORVASTATIN 20 MG TABLET PO SCH (20:34)
[2019-03-22] MEDS: INSULIN REGULAR, HUMAN 300 UNITS/3 ML VIAL SQ PRN (20:34)
[2019-03-22 20:58] VITALS: BP 131/80
--- NOTE | 2019-03-22 22:22 | NUR ---
Received pt resting in bed and having snacks. AAO x2-3. On 1L O2 via NC, tolerating well. No acute distress noted. Blood sugar of 124, no insulin coverage as per sliding scale. Due meds given as ordered. Safety measures maintained. Call light and personal items within reach. Will continue to monitor.
[2019-03-23] MEDS: ALBUTEROL SULFATE 2.5 MG/3 ML NEBU NEB SCH ×6 (04:28→23:23)
[2019-03-23 04:30] VITALS: BP 99/55
[2019-03-23] MEDS: BLOOD SUGAR DIAGNOSTIC 1 EACH STRIP VI SCH ×4 (06:36→20:38)
[2019-03-23 08:08] VITALS: BP 114/75
[2019-03-23] MEDS: OLANZAPINE 5 MG TABLET PO SCH ×2 (08:14→17:00)
[2019-03-23] MEDS: CARVEDILOL 3.125 MG TABLET PO SCH ×2 (08:14→18:41)
[2019-03-23] MEDS: CHOLECALCIFEROL 1,000 UNIT TABLET PO SCH (08:14)
[2019-03-23] MEDS: FLUOXETINE HCL 20 MG CAPSULE PO SCH (08:15)
[2019-03-23] MEDS: ASPIRIN EC 81 MG TABLET.DR PO SCH (08:15)
[2019-03-23] MEDS: CLONIDINE HCL 0.1 MG TABLET PO SCH ×2 (09:00→20:31)
[2019-03-23 11:15] VITALS: BP 107/60
--- NOTE | 2019-03-23 11:59 | NUR ---
INDIVIDUALIZE PLAN OF CARE
[2019-03-23] MEDS: LEVOFLOXACIN 750 MG TABLET PO SCH (13:08)
[2019-03-23] MEDS: ACETAMINOPHEN 325 MG TABLET PO PRN (14:29)
[2019-03-23 16:00] VITALS: BP 118/64
--- NOTE | 2019-03-23 18:59 | NUR ---
Pt received resting in bed. AAOx2-3, forgetful able to make needs known. Pt denies pain and discomfort. Sat up in wheelchair for both breakfast and lunch, assisted back to bed with a x2 person assist. All safety and comfort needs met throughout this shift. Original Sx dressing intact and in place. No s/s of infection. Bed in locked and lowest position with side rails up x2, alarm on. Call light and personal items placed within reach. Will continue to monitor.
[2019-03-23] MEDS: ATORVASTATIN 20 MG TABLET PO SCH (20:30)
[2019-03-23] MEDS: MELATONIN 3 MG TABLET PO SCH (20:30)
[2019-03-23] MEDS: BENZTROPINE MESYLATE 1 MG TABLET PO SCH (20:31)
[2019-03-23 21:01] VITALS: BP 114/63
[2019-03-23] MEDS: ENOXAPARIN SODIUM 40 MG/0.4 ML DISP.SYRIN SQ SCH (23:36)
[2019-03-24] MEDS: ALBUTEROL SULFATE 2.5 MG/3 ML NEBU NEB SCH ×6 (02:35→23:17)
--- NOTE | 2019-03-24 03:38 | NUR ---
No acute events over night, pt denies any pain, dressing on Left hip is c/d/i. pt able to sleep during shift, breathing treatments given as prescribed
[2019-03-24 05:31] VITALS: BP 109/72
[2019-03-24] MEDS: BLOOD SUGAR DIAGNOSTIC 1 EACH STRIP VI SCH ×4 (06:32→20:40)
[2019-03-24 07:54] VITALS: BP 117/64
[2019-03-24] MEDS: CLONIDINE HCL 0.1 MG TABLET PO SCH ×2 (09:00→20:39)
[2019-03-24] MEDS: CARVEDILOL 3.125 MG TABLET PO SCH ×2 (09:21→18:00)
[2019-03-24] MEDS: CHOLECALCIFEROL 1,000 UNIT TABLET PO SCH (09:51)
[2019-03-24] MEDS: ASPIRIN EC 81 MG TABLET.DR PO SCH (09:51)
[2019-03-24] MEDS: OLANZAPINE 5 MG TABLET PO SCH ×2 (09:51→18:05)
[2019-03-24] MEDS: FLUOXETINE HCL 20 MG CAPSULE PO SCH (09:53)
[2019-03-24] MEDS: LEVOFLOXACIN 750 MG TABLET PO SCH (12:03)
[2019-03-24 16:00] VITALS: BP 103/66
--- NOTE | 2019-03-24 19:40 | NUR ---
Patient A&O x3, No episodes of acute distress noted. O2 NC at 1LPM with O2 saturation of 95%. VS taken and stable. All due medications administered as ordered and scheduled and tolerated well. NO hypo/hyperglycemia noted. Needs attended, Safety measures in place, call light left at bed side, endorsed to next shift side and will continue with care.
[2019-03-24 20:38] VITALS: BP 125/68
[2019-03-24] MEDS: MELATONIN 3 MG TABLET PO SCH (20:38)
[2019-03-24] MEDS: ATORVASTATIN 20 MG TABLET PO SCH (20:38)
[2019-03-24] MEDS: BENZTROPINE MESYLATE 1 MG TABLET PO SCH (20:39)
[2019-03-25] MEDS: ENOXAPARIN SODIUM 40 MG/0.4 ML DISP.SYRIN SQ SCH (00:37)
[2019-03-25] MEDS: ALBUTEROL SULFATE 2.5 MG/3 ML NEBU NEB SCH ×6 (03:09→22:30)
--- NOTE | 2019-03-25 04:10 | NUR ---
Patient received in bed, AAO x3. Not in acute distress or SOB. Able to make needs known. On 1 L O2 via NC. No Complain of pain. All due medications given as ordered and well tolerated. Accucheck @2100: 100, no coverage based on insulin sliding scale. Physical assessment done. Fall prevention observed. All needs attended promptly. Safety measures maintained. Bed in low and lock position, alarm on, side rails up x2 for safety. Call light and frequently used items within reach. Continue to monitor and will endorse to the day shift nurse accordingly.
[2019-03-25 04:50] VITALS: BP 134/83
[2019-03-25] MEDS: BLOOD SUGAR DIAGNOSTIC 1 EACH STRIP VI SCH (06:35)
[2019-03-25] MEDS: IPRATROPIUM BROMIDE 0.5 MG/2.5 ML NEBU NEB PRN (07:14)
[2019-03-25 07:46] VITALS: BP 119/73
[2019-03-25] MEDS: CARVEDILOL 3.125 MG TABLET PO SCH ×2 (08:41→18:35)
[2019-03-25] MEDS: CLONIDINE HCL 0.1 MG TABLET PO SCH ×2 (09:00→20:14)
[2019-03-25] MEDS: OLANZAPINE 5 MG TABLET PO SCH ×2 (09:51→16:46)
[2019-03-25] MEDS: FLUOXETINE HCL 20 MG CAPSULE PO SCH (09:51)
[2019-03-25] MEDS: ASPIRIN EC 81 MG TABLET.DR PO SCH (09:51)
[2019-03-25] MEDS: CHOLECALCIFEROL 1,000 UNIT TABLET PO SCH (09:51)
[2019-03-25] MEDS: ACETAMINOPHEN 325 MG TABLET PO PRN (09:59)
[2019-03-25] MEDS: LEVOFLOXACIN 750 MG TABLET PO SCH (13:00)
[2019-03-25 15:46] VITALS: BP 114/74
--- NOTE | 2019-03-25 17:14 | NUR ---
Patient is A&O x3. NO SOB noted patient on O2 NC at 1LPM via NC with O2 saturation of 96%. Vital signs stable for patient. Informed Dr. Fernandez regarding pt.'s blood sugar with an order to do ACCU check 1 time daily. NO episodes of hypo/hyperglycemia noted. Tylenol 650MG 2 tabs PO administered before therapy and effective. NO complains of pain at this time. Needs attended, safety measures in place, call light left at bed side and will continue with care.
--- NOTE | 2019-03-25 19:30 | NUR ---
Patient alert and oriented x 3. On air mattress for skin precautions. Left hip original dressing intact. No C/O pain, SOB, or distress at this time. Side rails up bilaterally for safety. Call light and frequently used items within reach. Will continue to monitor.
[2019-03-25 19:55] VITALS: BP 107/66
[2019-03-25] MEDS: BENZTROPINE MESYLATE 1 MG TABLET PO SCH (20:14)
[2019-03-25] MEDS: ATORVASTATIN 20 MG TABLET PO SCH (20:14)
[2019-03-25] MEDS: MELATONIN 3 MG TABLET PO SCH (20:14)
[2019-03-26] MEDS: ENOXAPARIN SODIUM 40 MG/0.4 ML DISP.SYRIN SQ SCH (00:56)
[2019-03-26] MEDS: ALBUTEROL SULFATE 2.5 MG/3 ML NEBU NEB SCH ×6 (03:30→22:34)
[2019-03-26 05:41] VITALS: BP 120/69
[2019-03-26] MEDS: BLOOD SUGAR DIAGNOSTIC 1 EACH STRIP VI SCH (06:31)
[2019-03-26] MEDS: CHOLECALCIFEROL 1,000 UNIT TABLET PO SCH (08:07)
[2019-03-26] MEDS: FLUOXETINE HCL 20 MG CAPSULE PO SCH (08:08)
[2019-03-26] MEDS: CARVEDILOL 3.125 MG TABLET PO SCH ×2 (08:08→17:24)
[2019-03-26] MEDS: ASPIRIN EC 81 MG TABLET.DR PO SCH (08:08)
[2019-03-26] MEDS: OLANZAPINE 5 MG TABLET PO SCH ×2 (08:08→17:25)
[2019-03-26] MEDS: CLONIDINE HCL 0.1 MG TABLET PO SCH ×2 (08:09→20:31)
[2019-03-26 08:11] VITALS: BP 130/72
--- NOTE | 2019-03-26 13:53 | NUR ---
Patient continue on PT/OT for ambulation and ADL ability. Continue pain management if needed. Continue monitoring speech therapy for dysphagia. Continue swallowing and fall risk precaution not in distress. no complaint of pain/discomfort noted. will continue monitor
[2019-03-26] MEDS ORDERED: BISACODYL 10 MG SUPP.RECT RC PRN (19:15)
[2019-03-26 19:46] VITALS: BP 135/83
--- NOTE | 2019-03-26 19:59 | NUR ---
OOB in chair upon initial rounds. AAOx3 VSS On continous O2 @1L via nasal cannula. pulse ox 93%. SOB noted on exertion. respiratory treatments given as ordered. Assisted back in bed with minimal assistance. Fall precautions maintained. Possible d/c to SNF in am. Tolerated po meds well. Incontinent of bowel and bladder. Kept clean and dry. No BM noted this shift. Will monitor patient. Left dressing intact.
[2019-03-26] MEDS: ATORVASTATIN 20 MG TABLET PO SCH (20:31)
[2019-03-26] MEDS: MELATONIN 3 MG TABLET PO SCH (20:31)
[2019-03-26] MEDS: BENZTROPINE MESYLATE 1 MG TABLET PO SCH (20:31)
[2019-03-27] MEDS: ALBUTEROL SULFATE 2.5 MG/3 ML NEBU NEB SCH ×4 (02:30→14:51)
[2019-03-27 05:41] VITALS: BP 135/76
--- NOTE | 2019-03-27 06:21 | NUR ---
quiet night. slept most of the shift. denies any pain nor any discomfort. VSS. Incontinenet of urine x3 kept clean and dry. fall precautions maintained. siderails up for safety. kept comfortable.
[2019-03-27] MEDS: BLOOD SUGAR DIAGNOSTIC 1 EACH STRIP VI SCH (06:34)
[2019-03-27] MEDS: IPRATROPIUM BROMIDE 0.5 MG/2.5 ML NEBU NEB PRN ×3 (07:10→14:51)
[2019-03-27] MEDS: CHOLECALCIFEROL 1,000 UNIT TABLET PO SCH (08:28)
[2019-03-27] MEDS: OLANZAPINE 5 MG TABLET PO SCH ×2 (08:28→17:01)
[2019-03-27] MEDS: CLONIDINE HCL 0.1 MG TABLET PO SCH (08:29)
[2019-03-27] MEDS: FLUOXETINE HCL 20 MG CAPSULE PO SCH (08:29)
[2019-03-27] MEDS: CARVEDILOL 3.125 MG TABLET PO SCH ×2 (08:29→17:02)
[2019-03-27] MEDS: ASPIRIN EC 81 MG TABLET.DR PO SCH (08:29)
[2019-03-27] MEDS ORDERED: BISACODYL 10 MG SUPP.RECT RC PRN (08:45)
[2019-03-27] MEDS ORDERED: BISACODYL 5 MG TABLET.DR PO PRN (08:45)
[2019-03-27 09:00] VITALS: BP 134/66
[2019-03-27] MEDS ORDERED: ENOXAPARIN SODIUM 40 MG/0.4 ML DISP.SYRIN SQ SCH (09:00)
[2019-03-27 17:10] VITALS: BP 110/68
--- NOTE | 2019-03-27 18:41 | NUR ---
Patient discharge to [facility] in stable condition with 2 EMT around 625pm. Medication list given to EMT. Belongings given. Appointment form given. not in distress.
== END 2019-03-27 18:25 | disposition home health service (06) | DRG 862 ==
PROVIDERS: ADMIT Physical Medicine & Rehabilitation Pain Medicine; ATTEND Physical Medicine & Rehabilitation Pain Medicine
DX: Z47.1 Aftercare following joint replacement surgery (principal); G93.40 Encephalopathy, unspecified; J18.9 Pneumonia, unspecified organism; D69.6 Thrombocytopenia, unspecified; E44.0 Moderate protein-calorie malnutrition; I11.0 Hypertensive heart disease with heart failure; I27.20 Pulmonary hypertension, unspecified; I50.9 Heart failure, unspecified; F03.90 Unspecified dementia, unspecified severity, without behavioral disturbance, psychotic disturbance, mood disturbance, and anxiety; Z96.642 Presence of left artificial hip joint; S72.002D Fracture of unspecified part of neck of left femur, subsequent encounter for closed fracture with routine healing; W19.XXXD Unspecified fall, subsequent encounter; E11.9 Type 2 diabetes mellitus without complications; E78.5 Hyperlipidemia, unspecified; Z86.73 Personal history of transient ischemic attack (TIA), and cerebral infarction without residual deficits; I25.10 Atherosclerotic heart disease of native coronary artery without angina pectoris; I70.0 Atherosclerosis of aorta; J44.0 Chronic obstructive pulmonary disease with (acute) lower respiratory infection; Z91.81 History of falling; Z82.49 Family history of ischemic heart disease and other diseases of the circulatory system; Z83.3 Family history of diabetes mellitus; D64.9 Anemia, unspecified; Z68.29 Body mass index [BMI] 29.0-29.9, adult; F29 Unspecified psychosis not due to a substance or known physiological condition; R26.9 Unspecified abnormalities of gait and mobility; Z88.8 Allergy status to other drugs, medicaments and biological substances
CPT/HCPCS: 36415; 71045; 73502; 85025; 94640; J1650; J1815; J3590

== ENCOUNTER 2019-11-01 11:48 | Inpatient (IN) | payer MEDICAID ==
[~2019-11-01] VITALS: Ht 152.4 cm; Wt 64.0 kg
[~2019-11-01 11:48] MED LIST changes: +ASPI-605 PO; +ENOX40DI SQ; -FLUO-120 PO; +FLUO20CA42 PO; +LEVO750T46 PO; +MELA3TAB41 PO; -MELA3TAB63 PO
[2019-11-01] MEDS ORDERED: IV NORMAL SALINE 1000 ML BAG IV ONE (12:15)
[2019-11-01] MEDS ORDERED: CALC1TAB30 PO (12:20)
[2019-11-01] MEDS ORDERED: METF-440 PO (12:20)
--- NOTE | 2019-11-01 12:27 | NUR ---
PT IS IN ROOM #1B. DR BYRNE EVALUATED THE PT.
[2019-11-01 12:42] LABS: BASOPHILS % (AUTO) 0.6 % (0.0-2.0); HEMATOCRIT 32.2 % (31.2-41.9); HEMOGLOBIN 10.1 g/dL (10.9-14.3); LYMPHOCYTES # (AUTO) 0.9 K/uL (20.0-40.0); LYMPHOCYTES % (AUTO) 19.4 % (20.5-51.5); MEAN CORPUSCULAR HEMOGLOBIN 28.1 uug (24.7-32.8); MEAN CORPUSCULAR HGB CONC 31 g/dL (32.3-35.6); MEAN CORPUSCULAR VOLUME 89.5 fL (75.5-95.3); MONOCYTES # (AUTO) 0.3 K/uL (2.0-10.0); MONOCYTES % (AUTO) 6.1 % (0.0-11.0); NEUTROPHILS # (AUTO) 3.4 K/uL (1.8-8.9); NEUTROPHILS % (AUTO) 73.9 % (38.5-71.5); PLATELET COUNT (AUTO) 123 K/uL (179-408); RED BLOOD CELL COUNT(AUTO) 3.59 MIL/uL (3.63-4.92); WHITE BLOOD COUNT (AUTO) 4.7 K/uL (3.8-11.8)
[2019-11-01] MEDS ORDERED: AZITHROMYCIN IV 500 MG in IV DEXTROSE 5% 250 ML IV ONE (13:00)
[2019-11-01] MEDS ORDERED: CEFTRIAXONE 1 G in IV DEXTROSE 5% 50 ML IV ONE (13:00)
[2019-11-01 13:01] LABS: CREATININE 0.8 mg/dL (0.6-1.3); POTASSIUM 4.4 mmol/L (3.5-5.1)
[2019-11-01 13:06] LABS: BILIRUBIN,DIRECT 0.2 mg/dL (0.0-0.2); BILIRUBIN,TOTAL 0.6 mg/dL (0.2-1.0); TOTAL PROTEIN, SERUM 7.4 g/dL (6.4-8.2)
[2019-11-01 13:16] LABS: *BILIRUBIN,URIN NEGATIVE (NEGATIVE); *CLARITY,URINE SLIGHTLY CLOUDY (CLEAR); *COLOR,URINE YELLOW (YELLOW); *KETONES,URINE NEGATIVE (NEGATIVE); *UROBILINOGEN,URINE 0.2 E.U./dl (NORMAL); LEUKOCYTE ESTERASE ,URINE NEGATIVE (NEGATIVE); NITRITE, URINE POSITIVE (NEGATIVE); PH,URINE 5.5 (5.0-8.0); UGLUCOSE NEGATIVE (NEGATIVE)
[2019-11-01 13:20] LABS: *BLOOD, URINE TRACE (NEGATIVE)
[2019-11-01 13:24] LABS: BACTERIA,URINE MANY /HPF (NONE SEEN); SQUAMOUS EPITHELIAL CELL,UR FEW /HPF (NONE SEEN)
[2019-11-01] MEDS ORDERED: CEFTRIAXONE /D5W 50ML IVPB **ER PYXIS IV ONE (13:49)
[2019-11-01] MEDS ORDERED: AZITHROMYCIN 500MG/ D5W 250ML IVPB **ER PYXIS ONLY IV ONE (13:49)
[2019-11-01] MEDS ORDERED: ENOXAPARIN SODIUM 60 MG/0.6 ML DISP.SYRIN SQ ONE ×2 (14:15→14:25)
[2019-11-01] MEDS ORDERED: PIPERACILLIN SODIUM/TAZOBACTAM 3.375 G in IV DEXTROSE 5% 50 ML IV ONE (14:30)
[2019-11-01] MEDS ORDERED: PIPERACILLIN/TAZOBACTAM/D5W 50 ML IV ONE (14:32)
--- NOTE | 2019-11-01 18:51 | NUR ---
pt was transfered to [facility] room #314. report was given to rn sa[facility].
[2019-11-01 18:55] VITALS: BP 95/61
--- NOTE | 2019-11-01 19:15 | NUR ---
Patient is a new admission from the ER. She arrived in the unit 30 minutes prior to my shift. Patient is in bed, still in all of her street clothes, in semi-fowlers position. Patient is responsive to painful stimuli only with withdrawal from the stimuli. Peripheral IV in the right hand and in the left wrist.
[2019-11-01 20:00] VITALS: BP 90/54
[2019-11-01] MEDS ORDERED: DEXTROSE 50% 50 ML DISP.SYRIN IV PRN (20:45)
[2019-11-01] MEDS: MELATONIN 3 MG TABLET PO SCH (21:00)
[2019-11-01] MEDS: BENZTROPINE MESYLATE 1 MG TABLET PO SCH (21:00)
[2019-11-01] MEDS: ATORVASTATIN 20 MG TABLET PO SCH (21:00)
[2019-11-01] MEDS: BLOOD SUGAR DIAGNOSTIC 1 EACH STRIP VI SCH (21:32)
[2019-11-01] MEDS ORDERED: ONDANSETRON 4 MG/2 ML VIAL IV PRN (22:00)
[2019-11-01] MEDS: PIPERACILLIN/TAZO 2.25 G in IV DEXTROSE 5% 50 ML IV SCH (22:15)
--- NOTE | 2019-11-01 22:30 | NUR ---
I was able to rouse the patient for a short time to inform her it was time for medications. She was able to indicate to me with head movement that she did not want her PO medications.
[2019-11-01] MEDS: ALBUTEROL SULFATE 2.5 MG/3 ML NEBU NEB SCH (23:30)
[2019-11-01] MEDS ORDERED: PIPERACILLIN/TAZOBACTAM/D5W 50 ML ONE (23:51)
[2019-11-02] VITALS: BP 99/62
[2019-11-02] MEDS ORDERED: PIPERACILLIN/TAZO 2.25 G in IV DEXTROSE 5% 50 ML IV SCH ×2
[2019-11-02] MEDS ORDERED: ENOXAPARIN SODIUM 60 MG/0.6 ML DISP.SYRIN SQ ONE ×2 (02:00→03:48)
--- NOTE | 2019-11-02 02:00 | NUR ---
Patient now spontaneously opens eyes. She is severely confused, however she does attempt to respond verbally, though it is garbled. Attempted to orient the patient to her current situation. No indication of understanding.
[2019-11-02] MEDS: ALBUTEROL SULFATE 2.5 MG/3 ML NEBU NEB SCH ×6 (02:37→23:08)
[2019-11-02] MEDS ORDERED: PIPERACILLIN/TAZOBACTAM/D5W 50 ML ONE (03:55)
[2019-11-02] MEDS: PIPERACILLIN/TAZO 2.25 G in IV DEXTROSE 5% 50 ML IV SCH (04:03)
[2019-11-02 04:23] VITALS: BP 134/74
--- NOTE | 2019-11-02 04:30 | NUR ---
Patient has begun coughing. The cough is productive, however she has trouble clearing it. Encouraged the patient to cough deeply, and assisted clearance of secretions with suction. Secretions are thick and white.
--- NOTE | 2019-11-02 05:36 | NUR ---
Am care completed on patient. Patient is now much more alert. She is now responding appropriately with clear responses, though still confused.
[2019-11-02] MEDS: BLOOD SUGAR DIAGNOSTIC 1 EACH STRIP VI SCH ×4 (06:42→20:56)
[2019-11-02 07:30] VITALS: BP 141/80
[2019-11-02 08:06] LABS: BASOPHILS % (AUTO) 0.4 % (0.0-2.0); EOSINOPHILS % (AUTO) 0.1 % (0.0-7.0); HEMOGLOBIN 10.6 g/dL (10.9-14.3); LYMPHOCYTES # (AUTO) 0.8 K/uL (20.0-40.0); LYMPHOCYTES % (AUTO) 20.1 % (20.5-51.5); MEAN CORPUSCULAR HGB CONC 31 g/dL (32.3-35.6); MEAN CORPUSCULAR VOLUME 90.2 fL (75.5-95.3); MONOCYTES # (AUTO) 0.2 K/uL (2.0-10.0); NEUTROPHILS % (AUTO) 73.4 % (38.5-71.5); PLATELET COUNT (AUTO) 116 K/uL (179-408); RED BLOOD CELL COUNT(AUTO) 3.77 MIL/uL (3.63-4.92); WHITE BLOOD COUNT (AUTO) 4.1 K/uL (3.8-11.8)
[2019-11-02 08:49] LABS: BILIRUBIN,TOTAL 0.6 mg/dL (0.2-1.0); CREATININE 0.9 mg/dL (0.6-1.3); POTASSIUM 4.1 mmol/L (3.5-5.1); TOTAL PROTEIN, SERUM 7.3 g/dL (6.4-8.2)
[2019-11-02] MEDS ORDERED: CARVEDILOL 3.125 MG TABLET PO SCH (09:00)
[2019-11-02] MEDS: ASPIRIN EC 81 MG TABLET.DR PO SCH (09:07)
[2019-11-02] MEDS: METFORMIN HCL 500 MG TABLET PO SCH ×2 (09:07→16:27)
[2019-11-02] MEDS: CALCIUM CARB/VITAMIN D 500MG-200UNITS TABLET PO SCH (09:07)
[2019-11-02] MEDS: CLONIDINE HCL 0.1 MG TABLET PO SCH ×2 (09:08→16:28)
[2019-11-02] MEDS: PIPERACILLIN/TAZOBACTAM/D5W 3.375 G in IV DEXTROSE 5% 50 ML IV SCH ×2 (09:20→16:28)
[2019-11-02] MEDS: FLUOXETINE HCL 20 MG CAPSULE PO SCH (10:07)
[2019-11-02 12:38] VITALS: BP 120/71
[2019-11-02] MEDS: ENOXAPARIN SODIUM 60 MG/0.6 ML DISP.SYRIN SQ SCH ×2 (12:43→20:39)
[2019-11-02 16:00] VITALS: BP 111/66
[2019-11-02] MEDS: ACETAMINOPHEN 325 MG TABLET PO PRN (16:29)
--- NOTE | 2019-11-02 17:05 | NUR ---
Pt noted to have 102.5 temp. Tylenol prn and cooling measures provided. Cultures ordered per protocol.
--- NOTE | 2019-11-02 19:30 | NUR ---
RECEIVED PT IN BED. PT IN NO ACUTE RESPIRATORY DISTRESS. IV INTACT. SAFETY AND COMFORT PROVIDED. ALL NEEDS ARE MET. WILL CONTINUE TO MONITOR.
[2019-11-02 20:00] VITALS: BP 100/55
[2019-11-02] MEDS: ATORVASTATIN 20 MG TABLET PO SCH (20:38)
[2019-11-02] MEDS: BENZTROPINE MESYLATE 1 MG TABLET PO SCH (20:38)
[2019-11-02] MEDS: MELATONIN 3 MG TABLET PO SCH (20:39)
[2019-11-03] VITALS: BP 114/71
[2019-11-03] MEDS: PIPERACILLIN/TAZOBACTAM/D5W 3.375 G in IV DEXTROSE 5% 50 ML IV SCH ×3 (00:36→16:44)
[2019-11-03] MEDS: ALBUTEROL SULFATE 2.5 MG/3 ML NEBU NEB SCH ×3 (02:35→11:29)
[2019-11-03 04:30] VITALS: BP 142/94
[2019-11-03] MEDS: BLOOD SUGAR DIAGNOSTIC 1 EACH STRIP VI SCH ×4 (06:34→21:41)
--- NOTE | 2019-11-03 06:41 | NUR ---
PT DESATURATED IN 80'S. OXYGEN INCREASED TO 8L FACE MASK AND KEPT ELEVATED THE PT. PT COMFORTABLE WITH NO ACUTE RESPIRATORY SYMPTOM. PT OXYGEN SATURATION IS 95%. CHARGE NURSE AWARE. SAFETY AND COMFORT PROVIDED. PRESCRIBED MEDICATION GIVEN AND PT TOLERATED IT WILL. ALL NEEDS ARE MET. WILL ENDORSE TO INCOMING NURSE FOR CONTINUITY OF CARE.
[2019-11-03 06:42] LABS: BASOPHILS % (AUTO) 0.3 % (0.0-2.0); EOSINOPHILS % (AUTO) 0.2 % (0.0-7.0); HEMATOCRIT 34.4 % (31.2-41.9); HEMOGLOBIN 10.5 g/dL (10.9-14.3); LYMPHOCYTES # (AUTO) 0.9 K/uL (20.0-40.0); LYMPHOCYTES % (AUTO) 21.8 % (20.5-51.5); MEAN CORPUSCULAR HEMOGLOBIN 27.9 uug (24.7-32.8); MEAN CORPUSCULAR HGB CONC 31 g/dL (32.3-35.6); MEAN CORPUSCULAR VOLUME 91.1 fL (75.5-95.3); MONOCYTES # (AUTO) 0.2 K/uL (2.0-10.0); MONOCYTES % (AUTO) 5.7 % (0.0-11.0); NEUTROPHILS # (AUTO) 2.8 K/uL (1.8-8.9); PLATELET COUNT (AUTO) 129 K/uL (179-408); RED BLOOD CELL COUNT(AUTO) 3.77 MIL/uL (3.63-4.92); WHITE BLOOD COUNT (AUTO) 3.9 K/uL (3.8-11.8)
--- NOTE | 2019-11-03 06:46 | NUR ---
PT AFEBRILE. PT VITAL SIGNS WITHIN NORMAL LIMIT.
[2019-11-03 07:28] LABS: BILIRUBIN,TOTAL 0.7 mg/dL (0.2-1.0); CREATININE 0.9 mg/dL (0.6-1.3); MAGNESIUM 1.4 mg/dL (1.8-2.4); PHOSPHOROUS 2.2 mg/dL (2.5-4.9); POTASSIUM 3.7 mmol/L (3.5-5.1); TOTAL PROTEIN, SERUM 7.1 g/dL (6.4-8.2)
[2019-11-03 07:42] LABS: FERRITIN 336 ng/mL (8-252); LACTATE DEHYDROGENASE 354 U/L (81-234)
[2019-11-03 08:09] LABS: ABG BASE EXCESS 9.7 mmol/L; ABG PCO2 74.1 mmHg (35.0-45.0); ABG PH 7.328 (7.350-7.450); ABG PO2 55.9 mmHg (75.0-100.0); ABG SITE A-Line; ABG TOTAL HEMOGLOBIN 11.2 G/dL (12.0-16.0); COHb 1.4 % (0.5-1.5); MetHb 0.4 % (0.0-1.5); O2Hb 85.5 % (94.0-97.0); VENT MODE Mask - Simple 8L
[2019-11-03] MEDS: CALCIUM CARB/VITAMIN D 500MG-200UNITS TABLET PO SCH (08:20)
[2019-11-03] MEDS: ASPIRIN EC 81 MG TABLET.DR PO SCH (08:21)
[2019-11-03] MEDS: CLONIDINE HCL 0.1 MG TABLET PO SCH ×2 (08:21→16:55)
[2019-11-03] MEDS: METFORMIN HCL 500 MG TABLET PO SCH ×2 (08:21→16:44)
[2019-11-03] MEDS: FLUOXETINE HCL 20 MG CAPSULE PO SCH (08:21)
[2019-11-03] MEDS: ENOXAPARIN SODIUM 60 MG/0.6 ML DISP.SYRIN SQ SCH ×2 (08:22→21:25)
--- NOTE | 2019-11-03 09:03 | NUR ---
Received patient in difficulty breathing with oxygen mask at 92%. ABG done, result relayed to MD Herrera. Following by respiratory regarding ABG. tient swallow whole pills without difficulty. Aspiration precaution maintained. Seen by speech therapy. no new order. will continue monitor
--- NOTE | 2019-11-03 09:11 | NUR ---
Patient covid test positive for result. MD notified.will continue monitor
[2019-11-03 09:21] VITALS: BP 138/63
[2019-11-03] MEDS ORDERED: HYDROXYCHLOROQUINE SULFATE 200 MG TABLET PO ONE (11:30)
[2019-11-03] MEDS: INSULIN REGULAR, HUMAN 300 UNIT/3 ML VIAL SQ PRN (11:46)
[2019-11-03] MEDS: MAGNESIUM SULFATE/D5W 100 ML IV SCH ×4 (12:38→16:23)
[2019-11-03] MEDS ORDERED: ALBUTEROL SULFATE 2.5 MG/3 ML NEBU NEB PRN (12:45)
[2019-11-03] MEDS ORDERED: NEUTRA PHOS PACKET PO ONE (15:30)
--- NOTE | 2019-11-03 16:24 | NUR ---
Patient magnesium 1.4 low result. MD aware. Magmesium 400mg 4 packs IV given as ordered. will continue monitor
[2019-11-03] MEDS: IPRATROPIUM/ALBUTEROL SULFATE 14.7 GM INHALER INH SCH ×4 (16:59→23:39)
[2019-11-03] MEDS: ACETAMINOPHEN 325 MG TABLET PO PRN (17:43)
[2019-11-03 18:05] VITALS: BP 106/60
--- NOTE | 2019-11-03 19:30 | NUR ---
Sleeping quietly during initial rounds with HOB elevated with continuos O2 at 8L/min via face mask at this, saturating 95% at this time. No s/s of respiratory distress. No s/s of pain/discomforts noted. Droplet isolation maintained and observed due to COVID 19 infection. Safety measures and fall precaution maintained. Continue care as planned.
[2019-11-03] MEDS ORDERED: HYDROXYCHLOROQUINE SULFATE 200 MG TABLET PO SCH (21:00)
[2019-11-03] MEDS: ATORVASTATIN 20 MG TABLET PO SCH (21:25)
[2019-11-03] MEDS: BENZTROPINE MESYLATE 1 MG TABLET PO SCH (21:25)
[2019-11-03] MEDS: MELATONIN 3 MG TABLET PO SCH (21:42)
[2019-11-04] MEDS: PIPERACILLIN/TAZOBACTAM/D5W 3.375 G in IV DEXTROSE 5% 50 ML IV SCH ×3 (00:35→16:38)
[2019-11-04] MEDS: IPRATROPIUM/ALBUTEROL SULFATE 14.7 GM INHALER INH SCH ×5 (03:42→19:52)
[2019-11-04] MEDS: BLOOD SUGAR DIAGNOSTIC 1 EACH STRIP VI SCH ×4 (06:17→21:05)
--- NOTE | 2019-11-04 06:24 | NUR ---
Shift End Report: VS stable. Remain afebrile. Non productive cough noted intermittently. Denied any pain. No s/s of respiratory distress. No s/s of adverse reaction noted from Zosyn IV ATB. Slept good. Air born isolation maintained. No significant event reported.
[2019-11-04 07:06] LABS: HEPATITIS B SURFACE AB Reactive (.); HEPATITIS B SURFACE AG Negative (Negative)
--- NOTE | 2019-11-04 07:10 | NUR ---
Received patient resting in bed, awake and alert. Patient denies pain and discomfort. No S/S of SOB. Bed in lowest position, side rails up x2, call light within reach, will continue to monitor.
[2019-11-04 08:10] VITALS: BP 168/86
[2019-11-04] MEDS: ASPIRIN EC 81 MG TABLET.DR PO SCH (08:41)
[2019-11-04] MEDS: CLONIDINE HCL 0.1 MG TABLET PO SCH ×2 (08:41→16:38)
[2019-11-04] MEDS: FLUOXETINE HCL 20 MG CAPSULE PO SCH (08:42)
[2019-11-04] MEDS: CALCIUM CARB/VITAMIN D 500MG-200UNITS TABLET PO SCH (08:42)
[2019-11-04] MEDS: HYDROXYCHLOROQUINE SULFATE 200 MG TABLET PO SCH ×3 (08:42→21:00)
[2019-11-04] MEDS: METFORMIN HCL 500 MG TABLET PO SCH ×2 (08:42→16:37)
[2019-11-04] MEDS: ENOXAPARIN SODIUM 60 MG/0.6 ML DISP.SYRIN SQ SCH ×2 (08:46→21:01)
[2019-11-04 10:15] LABS: MAGNESIUM 2.2 mg/dL (1.8-2.4); PHOSPHOROUS 2.9 mg/dL (2.5-4.9); POTASSIUM 3.7 mmol/L (3.5-5.1)
[2019-11-04 17:16] VITALS: BP 150/84
--- NOTE | 2019-11-04 20:00 | NUR ---
PATIENT RECEIVED AT BEGINNING OF SHIFT AND O2 SAT AT 75% ON MASK AT 9L. RAPID RESPONSE CALLED. NON BREATHER MASK 100% PLACED AT 15L AND AT 92-93% AND CONTINUING TO DESATURATE TO 89-90%. DR. SOLIS CONTACTED. ORDERS RECEIVED STAT ABG, CHEST XRAY, AND TRANSFER TO CCU. BY MOUTH MEDICATIONS NON ADMINISTERED DUE TO VOMITING. DR. SOLIS AWARE. MEDICATIONS RETURNED IN [employer] MED BOX. REPORT GIVEN TO CCU NIGHT NURSE. PATIENT TRANSFERRED.
--- NOTE | 2019-11-04 20:21 | NUR ---
RECEIVED PT FROM [address] [place] [address] VIA BED, ON O2 OF 100% NRM W/ O2 SAT OF 98%. C-SCOPE SR W/ BBB. BP STABLE. VERBALLY NONRESPONSIVE WITHDRAWS TO PAIN. HEP LOCK ON L WRIST & R HAND INTACT & PATENT. T-100.4 AXILLARY. COOLING MEASURES APPLIED. REPOSITIONED W/ HOB ELEVATED. Addendum: 11/05/19 at 0140 by TOBY MORALES RN PT WAS TRANSFERED FROM [address] [place] [address] @ 2120.
[2019-11-04] MEDS: MELATONIN 3 MG TABLET PO SCH ×2 (20:56→21:00)
[2019-11-04] MEDS: BENZTROPINE MESYLATE 1 MG TABLET PO SCH ×2 (20:56→21:00)
[2019-11-04] MEDS: ATORVASTATIN 20 MG TABLET PO SCH ×2 (20:56→21:00)
[2019-11-04 21:04] LABS: ABG BASE EXCESS 13.6 mmol/L; ABG HCO3 40.9 mmol/L; ABG PCO2 67.5 mmHg (35.0-45.0); ABG PO2 54.5 mmHg (75.0-100.0); ABG SITE RIGHT BRACHIAL; ABG TOTAL HEMOGLOBIN 10.8 G/dL (12.0-16.0); COHb 0.9 % (0.5-1.5); MetHb 0.3 % (0.0-1.5); O2Hb 86.8 % (94.0-97.0)
--- NOTE | 2019-11-04 21:35 | NUR ---
pharmacy patient medications unable to return in the pyxis due to patient being transferred to ccu. unable to sign into ccu pyxis as well. returned with patient label to locked pyxis box.
[2019-11-04 21:37] VITALS: BP 123/75
[2019-11-04 21:57] VITALS: BP 144/84
[2019-11-04 22:00] VITALS: BP 118/71
[2019-11-04] MEDS: ACETAMINOPHEN 650 MG SUPP.RECT RC PRN (22:50)
[2019-11-04 23:00] VITALS: BP 127/77
[2019-11-05] VITALS (45 sets, daily range): BP systolic 78–157; BP diastolic 45–91
--- NOTE | 2019-11-05 | NUR ---
TEMP-99.2 AXILLARY. REPOSITIONED ON HER SIDE W/ HOB ELEVATED.
--- NOTE | 2019-11-05 01:00 | NUR ---
belonging bag and Combivent inhaler given to CCU.
[2019-11-05] MEDS: PIPERACILLIN/TAZOBACTAM/D5W 3.375 G in IV DEXTROSE 5% 50 ML IV SCH ×3 (01:02→16:14)
[2019-11-05] MEDS: IPRATROPIUM/ALBUTEROL SULFATE 14.7 GM INHALER INH SCH ×3 (01:07→07:35)
--- NOTE | 2019-11-05 04:30 | NUR ---
AM CARE DONE. INCONT. OF URINE.
[2019-11-05 05:32] LABS: BASOPHILS % (AUTO) 0.5 % (0.0-2.0); EOSINOPHILS % (AUTO) 0.1 % (0.0-7.0); HEMATOCRIT 34.3 % (31.2-41.9); HEMOGLOBIN 10.6 g/dL (10.9-14.3); LYMPHOCYTES % (AUTO) 20.9 % (20.5-51.5); MEAN CORPUSCULAR HEMOGLOBIN 28.1 uug (24.7-32.8); MEAN CORPUSCULAR HGB CONC 31 g/dL (32.3-35.6); MEAN CORPUSCULAR VOLUME 91.1 fL (75.5-95.3); MONOCYTES # (AUTO) 0.4 K/uL (2.0-10.0); MONOCYTES % (AUTO) 9.5 % (0.0-11.0); NEUTROPHILS # (AUTO) 3.2 K/uL (1.8-8.9); PLATELET COUNT (AUTO) 125 K/uL (179-408); RED BLOOD CELL COUNT(AUTO) 3.76 MIL/uL (3.63-4.92); WHITE BLOOD COUNT (AUTO) 4.7 K/uL (3.8-11.8)
[2019-11-05 05:59] LABS: MAGNESIUM 1.7 mg/dL (1.8-2.4); PHOSPHOROUS 2.8 mg/dL (2.5-4.9); POTASSIUM 3.8 mmol/L (3.5-5.1)
--- NOTE | 2019-11-05 06:07 | NUR ---
CLEANED INCONT. OF URINE. REPOSITIONED W/ HOB ELEVATED.
--- NOTE | 2019-11-05 06:39 | NUR ---
EPSTEIN # 16 INSERTED ASEPTICALLY. INCCONT. OF STOOL , CLEANED & REPOSITIONED.
[2019-11-05] MEDS: ASPIRIN EC 81 MG TABLET.DR PO SCH (08:03)
[2019-11-05] MEDS: CLONIDINE HCL 0.1 MG TABLET PO SCH ×2 (08:03→16:13)
[2019-11-05] MEDS: CALCIUM CARB/VITAMIN D 500MG-200UNITS TABLET PO SCH (08:03)
[2019-11-05] MEDS: METFORMIN HCL 500 MG TABLET PO SCH ×2 (08:04→16:12)
[2019-11-05] MEDS: ENOXAPARIN SODIUM 60 MG/0.6 ML DISP.SYRIN SQ SCH ×2 (08:05→21:33)
[2019-11-05 08:08] LABS: ABG BASE EXCESS 15.6 mmol/L; ABG HCO3 46.3 mmol/L; ABG PCO2 98.9 mmHg (35.0-45.0); ABG PH 7.288 (7.350-7.450); ABG PO2 48.7 mmHg (75.0-100.0); ABG SITE RIGHT BRACHIAL; ABG TOTAL HEMOGLOBIN 11.8 G/dL (12.0-16.0); COHb 1.2 % (0.5-1.5); MetHb 0.5 % (0.0-1.5); O2Hb 78.4 % (94.0-97.0)
[2019-11-05] MEDS: HYDROXYCHLOROQUINE SULFATE 200 MG TABLET PO SCH (08:08)
[2019-11-05] MEDS: FLUOXETINE HCL 20 MG CAPSULE PO SCH (08:09)
[2019-11-05] MEDS: BLOOD SUGAR DIAGNOSTIC 1 EACH STRIP VI SCH ×4 (08:20→20:38)
[2019-11-05] MEDS: ACETAMINOPHEN 650 MG SUPP.RECT RC PRN (08:25)
--- NOTE | 2019-11-05 10:00 | NUR ---
Patient with more frequent periods of desaturation mid- to low 80's. Patient remains lethargic. Business Intelligence Manager Dr. Herrera in and notified. Orders to prepare pt. for intubation received.
[2019-11-05] MEDS ORDERED: PROPOFOL 100 ML IV PRN ×2 (10:15→12:30)
--- NOTE | 2019-11-05 10:15 | NUR ---
Dr. Juan Diallo at bedside and patient been prepared to be intubated at the first attempt. RT team Steve and Cheryl at bedside. etomidate and suchinocholyne administered as ordered. ETT 7.5 22LL vent setting of tv 400, Peep +10, FIO2 100%. Central Line to RIJ 3lumen inserted at this time. NG also inserted at this time. Addendum: 11/05/19 at 1832 by ALEXANDRA MILLER RN venta rate of 22.
[2019-11-05] MEDS ORDERED: ACETAMINOPHEN 650 MG/20.3 ML LIQUID UDC PO PRN (10:30)
[2019-11-05] MEDS ORDERED: SUCCINYLCHOLINE CHLORIDE 200 MG/10 ML VIAL IV ONE ×2 (10:30→18:45)
[2019-11-05] MEDS ORDERED: ETOMIDATE 20 MG/10 ML VIAL IV ONE ×2 (10:30→18:45)
--- NOTE | 2019-11-05 10:30 | NUR ---
Pulmonary services, Dr. Herrera in during intubation. See order hx.
--- NOTE | 2019-11-05 10:30 | NUR ---
ASSISTED DR. FLAHERTY WITH ORAL INTUBATION. ORALLY INTUBATED WITH A 7.5 ETT APPROXIMATELY 24CM AT THE LIP. @ 1120, ETT PULLED OUT 1CM PER TRACY FLAHERTY'S VERBAL ORDER. VENT SETTINGS ARE AC 22, VT 400, PEEP +10, 100% FIO2. ABG TO BE DONE AT 1130. SPUTUM INDUCTION DONE. ANCHOR FAST IN PLACE. AMBU BAG IS AT BEDSIDE. VENT IS PLUGGED INTO RED EMERGENCY OUTLET. CUFF IS INFLATED. WILL CONTINUE TO MONITOR.
[2019-11-05 11:51] LABS: ABG BASE EXCESS 14.6 mmol/L; ABG HCO3 39.4 mmol/L; ABG PCO2 48.9 mmHg (35.0-45.0); ABG PH 7.524 (7.350-7.450); ABG PO2 318.6 mmHg (75.0-100.0); ABG SITE RIGHT RADIAL; ABG TOTAL HEMOGLOBIN 13.2 G/dL (12.0-16.0); COHb 0.9 % (0.5-1.5); MetHb 0.2 % (0.0-1.5); O2Hb 98.6 % (94.0-97.0); VENT MODE VENT - A/C; VT, ABG 400 mL
[2019-11-05] MEDS: MAGNESIUM SULFATE/D5W 100 ML IV SCH ×2 (11:51→12:48)
--- NOTE | 2019-11-05 12:00 | NUR ---
MD aware of ABG results post intubation and vent settings changed to TV 400, Rate of 20, Peep +10. No respiratory distress noted. Will continue with care plan.
--- NOTE | 2019-11-05 12:00 | NUR ---
PER DR. LEHMAN VERBAL ORDER AND ABG RESULTS, RESPIRATORY RATE CHANGED TO 20. ORDERED FOR FIO2 TO BE TITRATED ACCORDINGLY. MAINTAIN SATS OF 92-96% PER DR. LEHMAN. WILL MONITOR.
[2019-11-05] MEDS ORDERED: MIDAZOLAM HCL 2 MG/2 ML VIAL IV PRN ×3 (12:30→12:45)
[2019-11-05] MEDS: ALBUTEROL SULFATE 8 GM HFA.AER.AD IH SCH ×4 (13:00→22:40)
[2019-11-05] MEDS: IPRATROPIUM BROMIDE 12.9 GM INHALER INH SCH ×4 (13:00→22:40)
[2019-11-05] MEDS: PROPOFOL 100 ML IV PRN ×3 (13:35→23:14)
--- NOTE | 2019-11-05 13:53 | NUR ---
Clinical Pharmacy Note: Vancomycin Dosing per Pharmacy Subjective: Vancomycin IV to start on this 59 yo female patient for indication of " ID recommended" (waiting for MD note- patient was intubated this am, Covid+). Objective: BUN 12/Scr 1.0 WBC 4.7 Temperature 99.2 ht 152 cm wt 65 kg Assessment/Plan: Will start vancomycin 1000mg IVPB Q24hr for a predicted vancomycin steady state trough level of 15 mcg/ml. 1st dose today at 1400. Will draw a vancomycin trough level prior to the 4th dose of vancomycin (not ordered yet). Will monitor renal function and adjust vancomycin dose, if needed, should renal function change significantly. Will follow daily.
[2019-11-05] MEDS ORDERED: VANCOMYCIN IV 1,000 MG in IV DEXTROSE 5% 250 ML IV SCH (14:00)
[2019-11-05] MEDS ORDERED: methylPREDNISolone SOD SUCC 125 MG/2 ML VIAL IV SCH (14:00)
[2019-11-05] MEDS: methylPREDNISolone SOD SUCC 40 MG/ML VIAL IV SCH ×2 (14:01→21:33)
[2019-11-05] MEDS ORDERED: NOREPINEPHRINE BITARTRATE 8 MG in IV NORMAL SALINE 242 ML IV PRN (14:30)
[2019-11-05 15:37] LABS: BILIRUBIN,DIRECT 0.1 mg/dL (0.0-0.2); BILIRUBIN,TOTAL 0.4 mg/dL (0.2-1.0); TOTAL PROTEIN, SERUM 7.4 g/dL (6.4-8.2)
[2019-11-05] MEDS ORDERED: CLONIDINE HCL 0.1 MG TABLET PO SCH (17:00)
[2019-11-05] MEDS ORDERED: INVESTIGATIONAL IV MED 1 EA in IV NORMAL SALINE 210 ML IV ONE (17:30)
--- NOTE | 2019-11-05 19:30 | NUR ---
Report received. Patient on COVID 19 isolation. Orally intubated and to mechanical ventilator with settings: AC=20, FIO2=60%, WW=[id number] and PEEP=10 cm. O2 sat above 94%. Sedated with Diprivan drip at 50 mcg/kg/min via RIJ TLC. Levophed drip infusing for BP support. Assessment completed. Addendum: 11/06/19 at 0230 by KORIN LUCIANO RN Amended: Links added. Addendum: 11/06/19 at 0242 by KORIN LUCIANO RN Amended: Links added.
--- NOTE | 2019-11-05 19:44 | NUR ---
Lab called re: convalescent plasma order. As per animal laboratory technician Juan Diallo spoke to Aide laboratory analyst. Spoke to Juan Diallo re: Hydroxychloroquine dose patient is bradycardic; okayed to give dose. Also ordered to transfuse Convalescent plasma.
--- NOTE | 2019-11-05 20:06 | NUR ---
Pt received on Lima settings AC 20, VT 400, PEEP+10 and FIO2-60%. 7.5 ETT is patent and secure at approx. 23cm at the lip. Pt to be monitored throughout the shift and PRN SX. Pt is in no resp. distress and appears to be tolerating ventilator settings well. Lima alarms have been checked and remain audible.
[2019-11-05] MEDS: BENZTROPINE MESYLATE 1 MG TABLET NG SCH (20:32)
[2019-11-05] MEDS: ATORVASTATIN 20 MG TABLET NG SCH (20:32)
[2019-11-05] MEDS: HYDROXYCHLOROQUINE 200 MG/8 ML SUSPENSION NG SCH (20:33)
--- NOTE | 2019-11-05 21:00 | NUR ---
Spoke to Juan Diallo again re: Lovenox dose; patient has bleeding at RIJ insertion site. Okayed to give dose. BP 123/75. Levophed drip latoya'd. Will monitor BPs closely.
--- NOTE | 2019-11-05 22:00 | NUR ---
BPs in the 80's; Levophed drip restarted at 0.02 mcg/kg/min. Will continue to monitor BP closely.
[2019-11-06] VITALS (46 sets, daily range): BP systolic 85–151; BP diastolic 49–88
--- NOTE | 2019-11-06 00:20 | NUR ---
Convalescent plasma 1 unit started via NORRIS TLC. Addendum: 11/06/19 at 0242 by KORIN LUCIANO RN Amended: Links added.
[2019-11-06] MEDS: PIPERACILLIN/TAZOBACTAM/D5W 3.375 G in IV DEXTROSE 5% 50 ML IV SCH ×3 (01:31→17:24)
--- NOTE | 2019-11-06 02:15 | NUR ---
Plasma transfusion completed without any problems.
[2019-11-06] MEDS: ALBUTEROL SULFATE 8 GM HFA.AER.AD IH SCH ×6 (02:41→22:45)
[2019-11-06] MEDS: IPRATROPIUM BROMIDE 12.9 GM INHALER INH SCH ×6 (02:41→22:45)
[2019-11-06] MEDS: IV NORMAL SALINE 250 ML IV PRN (03:02)
[2019-11-06] MEDS: PROPOFOL 100 ML IV PRN ×3 (03:59→17:24)
[2019-11-06 04:59] LABS: BASOPHILS % (AUTO) 0.2 % (0.0-2.0); HEMATOCRIT 31.8 % (31.2-41.9); HEMOGLOBIN 9.9 g/dL (10.9-14.3); LYMPHOCYTES # (AUTO) 0.6 K/uL (20.0-40.0); LYMPHOCYTES % (AUTO) 16.7 % (20.5-51.5); MEAN CORPUSCULAR HEMOGLOBIN 28.2 uug (24.7-32.8); MEAN CORPUSCULAR HGB CONC 31 g/dL (32.3-35.6); MEAN CORPUSCULAR VOLUME 90.2 fL (75.5-95.3); MONOCYTES # (AUTO) 0.2 K/uL (2.0-10.0); MONOCYTES % (AUTO) 6.1 % (0.0-11.0); NEUTROPHILS # (AUTO) 2.7 K/uL (1.8-8.9); PLATELET COUNT (AUTO) 122 K/uL (179-408); RED BLOOD CELL COUNT(AUTO) 3.53 MIL/uL (3.63-4.92); WHITE BLOOD COUNT (AUTO) 3.5 K/uL (3.8-11.8)
[2019-11-06 05:12] LABS: MAGNESIUM 2.1 mg/dL (1.8-2.4); PHOSPHOROUS 1.1 mg/dL (2.5-4.9)
[2019-11-06 05:13] LABS: BILIRUBIN,DIRECT 0.1 mg/dL (0.0-0.2); BILIRUBIN,TOTAL 0.8 mg/dL (0.2-1.0); CREATININE 1.3 mg/dL (0.6-1.3); POTASSIUM 3.3 mmol/L (3.5-5.1); TOTAL PROTEIN, SERUM 6.5 g/dL (6.4-8.2)
[2019-11-06] MEDS: methylPREDNISolone SOD SUCC 40 MG/ML VIAL IV SCH ×3 (05:20→21:07)
--- NOTE | 2019-11-06 07:04 | NUR ---
Saturations above 94% on same vent settings. Diprivan drip @ 40 mcg/kg/min. With cough and gag reflexes. Grimaces to suctioning. COVID 19 isolation maintained. Addendum: 11/06/19 at 0704 by KORIN LUCIANO RN Amended: Links added.
[2019-11-06 07:44] LABS: ABG BASE EXCESS 12.1 mmol/L; ABG HCO3 35.6 mmol/L; ABG PCO2 41.9 mmHg (35.0-45.0); ABG PH 7.547 (7.350-7.450); ABG PO2 64.9 mmHg (75.0-100.0); ABG SITE RIGHT RADIAL; ABG TOTAL HEMOGLOBIN 10.4 G/dL (12.0-16.0); COHb 0.8 % (0.5-1.5); MetHb 0.3 % (0.0-1.5); O2Hb 94.3 % (94.0-97.0); VENT MODE VENT - A/C; VT, ABG 400 mL
[2019-11-06] MEDS: HYDROXYCHLOROQUINE 200 MG/8 ML SUSPENSION NG SCH ×2 (08:29→20:14)
[2019-11-06] MEDS: FLUOXETINE HCL 20 MG CAPSULE NG SCH (08:29)
[2019-11-06] MEDS: METFORMIN HCL 500 MG TABLET PO SCH ×2 (08:29→17:27)
[2019-11-06] MEDS: ASPIRIN 81 MG TAB.CHEW NG SCH (08:29)
[2019-11-06] MEDS: ENOXAPARIN SODIUM 60 MG/0.6 ML DISP.SYRIN SQ SCH ×2 (08:30→20:15)
[2019-11-06] MEDS: Z GUARD REMEDY PASTE 57 GM TUBE TOP SCH ×2 (08:32→20:15)
[2019-11-06] MEDS: BLOOD SUGAR DIAGNOSTIC 1 EACH STRIP VI SCH ×4 (08:52→20:50)
[2019-11-06] MEDS: INSULIN REGULAR, HUMAN 300 UNIT/3 ML VIAL SQ PRN ×2 (09:01→18:26)
[2019-11-06] MEDS ORDERED: POTASSIUM CHLORIDE 20 MEQ POWDER PACKET GT ONE (10:45)
[2019-11-06] MEDS ORDERED: POTASSIUM PHOSPHATE MM 15 MMOL in IV NORMAL SALINE 250 ML IV ONE ×2 (12:00→13:30)
[2019-11-06] MEDS: POTASSIUM CHLORIDE 50 ML IV SCH ×2 (12:37→13:46)
--- NOTE | 2019-11-06 13:22 | NUR ---
Clinical Pharmacy Note: Vancomycin Dosing per Pharmacy Subjective: Vancomycin IV to continue on this 59 yo female patient for indication of " ID recommended" (ID note says pneumonia(possibly HCAP vs aspiration). Covid+. Objective: BUN 17/Scr 1.3 WBC 3.5 Temperature 98.4 ht 152 cm wt 65 kg Assessment/Plan: Since scr is elevated, will change dose to 1 gram IV every 28hrs(second dose today at 1800)and draw trough by 4th dose(not ordered yet) for expected trough around 16. Will monitor daily.
[2019-11-06] MEDS ORDERED: INVESTIGATIONAL IV MED 1 EA in IV NORMAL SALINE 230 ML IV SCH (17:30)
[2019-11-06] MEDS ORDERED: VANCOMYCIN IV 1,000 MG in IV DEXTROSE 5% 250 ML IV SCH (18:00)
[2019-11-06] MEDS: ATORVASTATIN 20 MG TABLET NG SCH (20:14)
[2019-11-06] MEDS: BENZTROPINE MESYLATE 1 MG TABLET NG SCH (20:14)
--- NOTE | 2019-11-06 20:38 | NUR ---
Pt received on Lima settings AC 18, VT 400, PEEP+10 and FIO2-35%. 7.5 ETT is patent and secure at approx. 23cm at the lip. Pt to be monitored throughout the shift and PRN SX. Pt is in no resp. distress and appears to be tolerating ventilator settings well. Lima alarms have been checked and remain audible.
[2019-11-06] MEDS: INSULIN REGULAR, HUMAN 300 UNITS/3 ML VIAL SQ PRN (20:52)
[2019-11-07] VITALS (24 sets, daily range): BP systolic 93–154; BP diastolic 39–91
[2019-11-07] MEDS: PIPERACILLIN/TAZOBACTAM/D5W 3.375 G in IV DEXTROSE 5% 50 ML IV SCH ×2 (00:15→17:19)
[2019-11-07] MEDS: IV NORMAL SALINE 250 ML IV PRN (00:21)
[2019-11-07] MEDS: PROPOFOL 100 ML IV PRN ×3 (02:08→21:52)
[2019-11-07] MEDS: ALBUTEROL SULFATE 8 GM HFA.AER.AD IH SCH ×6 (02:46→23:51)
[2019-11-07] MEDS: IPRATROPIUM BROMIDE 12.9 GM INHALER INH SCH ×6 (02:46→23:51)
[2019-11-07 05:45] LABS: BASOPHILS % (AUTO) 0.1 % (0.0-2.0); HEMATOCRIT 29.1 % (31.2-41.9); HEMOGLOBIN 9.2 g/dL (10.9-14.3); LYMPHOCYTES # (AUTO) 0.4 K/uL (20.0-40.0); LYMPHOCYTES % (AUTO) 5.7 % (20.5-51.5); MEAN CORPUSCULAR HGB CONC 32 g/dL (32.3-35.6); MEAN CORPUSCULAR VOLUME 88.7 fL (75.5-95.3); MONOCYTES # (AUTO) 0.6 K/uL (2.0-10.0); NEUTROPHILS # (AUTO) 5.4 K/uL (1.8-8.9); NEUTROPHILS % (AUTO) 84.2 % (38.5-71.5); PLATELET COUNT (AUTO) 145 K/uL (179-408); RED BLOOD CELL COUNT(AUTO) 3.28 MIL/uL (3.63-4.92); WHITE BLOOD COUNT (AUTO) 6.5 K/uL (3.8-11.8)
[2019-11-07 05:58] LABS: BILIRUBIN,DIRECT 0.1 mg/dL (0.0-0.2); BILIRUBIN,TOTAL 0.4 mg/dL (0.2-1.0); CREATININE 2.6 mg/dL (0.6-1.3); POTASSIUM 3.6 mmol/L (3.5-5.1); TOTAL PROTEIN, SERUM 6.4 g/dL (6.4-8.2)
[2019-11-07 06:16] LABS: MAGNESIUM 2.1 mg/dL (1.8-2.4)
[2019-11-07] MEDS: methylPREDNISolone SOD SUCC 40 MG/ML VIAL IV SCH ×3 (06:56→21:06)
[2019-11-07] MEDS: BLOOD SUGAR DIAGNOSTIC 1 EACH STRIP VI SCH ×4 (06:57→21:05)
[2019-11-07] MEDS: INSULIN REGULAR, HUMAN 300 UNIT/3 ML VIAL SQ PRN (07:00)
--- NOTE | 2019-11-07 07:41 | NUR ---
Pt received on Lima settings AC 18, VT 400, PEEP+10 and FIO2-35%. 7.5 ETT is patent and secure at approx. 23cm at the lip.SX PRN. Pt is in no resp. distress and appears to be tolerating ventilator settings well. Vent alarms have been checked and remain audible.
[2019-11-07 07:54] LABS: ABG HCO3 30.4 mmol/L; ABG PCO2 49.2 mmHg (35.0-45.0); ABG PH 7.409 (7.350-7.450); ABG PO2 70.6 mmHg (75.0-100.0); ABG SITE RIGHT RADIAL; ABG TOTAL HEMOGLOBIN 10.5 G/dL (12.0-16.0); COHb 0.7 % (0.5-1.5); MetHb 0.4 % (0.0-1.5); O2Hb 92.7 % (94.0-97.0); VENT MODE VENT - A/C; VT, ABG 400 mL
--- NOTE | 2019-11-07 08:45 | NUR ---
Clinical Pharmacy Note: Vancomycin Dosing per Pharmacy Subjective: Vancomycin IV to continue on this 59 yo female patient for indication of " ID recommended" (ID note says pneumonia(possibly HCAP vs aspiration). Covid+. Objective: BUN 38/Scr 2.6 WBC 6.5 Temperature 98.6 ht 152 cm wt 65 kg Assessment/Plan: Since scr has significantly increased, will dose by level for now. Plan to check vanco random level today at 1700. Will check the level & re-dose as appropriate. Will monitor daily.
[2019-11-07] MEDS: FLUOXETINE HCL 20 MG CAPSULE NG SCH (09:00)
[2019-11-07] MEDS ORDERED: METFORMIN HCL 500 MG TABLET PO SCH (09:00)
[2019-11-07] MEDS ORDERED: PIPERACILLIN/TAZO 2.25 G in IV DEXTROSE 5% 50 ML IV SCH (09:00)
[2019-11-07] MEDS: Z GUARD REMEDY PASTE 57 GM TUBE TOP SCH ×2 (09:07→21:06)
[2019-11-07] MEDS: ASPIRIN 81 MG TAB.CHEW NG SCH (09:11)
[2019-11-07] MEDS: HYDROXYCHLOROQUINE 200 MG/8 ML SUSPENSION NG SCH ×2 (09:13→20:39)
--- NOTE | 2019-11-07 11:27 | NUR ---
Dr. Humphrey here to see pt. Full report given. New orders received.
[2019-11-07] MEDS: ATORVASTATIN 20 MG TABLET NG SCH (20:35)
[2019-11-07] MEDS: BENZTROPINE MESYLATE 1 MG TABLET NG SCH (20:39)
[2019-11-07] MEDS: ENOXAPARIN SODIUM 60 MG/0.6 ML DISP.SYRIN SQ SCH (20:40)
[2019-11-07] MEDS: INSULIN REGULAR, HUMAN 300 UNITS/3 ML VIAL SQ PRN (21:09)
--- NOTE | 2019-11-07 21:58 | NUR ---
PT received in stable respiratory condition on spain vent with settings: AC 18, Vt 400, +10, FiO2 35%. 7.5 ETT, patent and secured. 23cm lip line. Suction PRN. No respiratory distress noted, tolerates current vent settings well. Tx given as ordered. All alarms on and audible. Will continue to monitor.
[2019-11-08] VITALS (24 sets, daily range): BP systolic 101–158; BP diastolic 61–97
[2019-11-08] MEDS: PROPOFOL 100 ML IV PRN ×4 (03:18→22:29)
[2019-11-08] MEDS: ALBUTEROL SULFATE 8 GM HFA.AER.AD IH SCH ×6 (03:55→22:33)
[2019-11-08] MEDS: IPRATROPIUM BROMIDE 12.9 GM INHALER INH SCH ×6 (03:56→22:33)
[2019-11-08] MEDS: PIPERACILLIN/TAZOBACTAM/D5W 3.375 G in IV DEXTROSE 5% 50 ML IV SCH ×2 (05:06→17:20)
[2019-11-08] MEDS: methylPREDNISolone SOD SUCC 40 MG/ML VIAL IV SCH ×3 (05:07→21:09)
[2019-11-08] MEDS: IV NORMAL SALINE 250 ML IV PRN (05:15)
[2019-11-08 06:09] LABS: BASOPHILS % (AUTO) 0.1 % (0.0-2.0); HEMATOCRIT 27.8 % (31.2-41.9); LYMPHOCYTES # (AUTO) 0.4 K/uL (20.0-40.0); MEAN CORPUSCULAR HEMOGLOBIN 28.2 uug (24.7-32.8); MEAN CORPUSCULAR HGB CONC 32 g/dL (32.3-35.6); MEAN CORPUSCULAR VOLUME 87.5 fL (75.5-95.3); MONOCYTES # (AUTO) 0.9 K/uL (2.0-10.0); MONOCYTES % (AUTO) 9.7 % (0.0-11.0); NEUTROPHILS # (AUTO) 7.5 K/uL (1.8-8.9); NEUTROPHILS % (AUTO) 86.2 % (38.5-71.5); PLATELET COUNT (AUTO) 176 K/uL (179-408); RED BLOOD CELL COUNT(AUTO) 3.18 MIL/uL (3.63-4.92); WHITE BLOOD COUNT (AUTO) 8.8 K/uL (3.8-11.8)
[2019-11-08 06:33] LABS: BILIRUBIN,DIRECT 0.2 mg/dL (0.0-0.2); BILIRUBIN,TOTAL 0.4 mg/dL (0.2-1.0); CREATININE 2.7 mg/dL (0.6-1.3); TOTAL PROTEIN, SERUM 6.3 g/dL (6.4-8.2)
[2019-11-08] MEDS: BLOOD SUGAR DIAGNOSTIC 1 EACH STRIP VI SCH ×3 (06:33→17:19)
--- NOTE | 2019-11-08 07:35 | NUR ---
Pt received orally intubated with 7.5 ETT secured at 23cm lip line and on continuous mechanical ventilation. Pt is on DANIELLE vent with ordered settings of A/C-18, VT-400, PEEP+10, FIO2-35% Pt tolerating vent settings well. MDI treatment given as ordered with 4 Puff Albuterol and Atrovent. Treatments tolerated well with no adverse reactions noted. Suctioned Pt for small amount of white secretions. ETT secured using AnchorFast device. ETT moved periodically per hospital policy. Ventilator alarm parameters checked, on and audible. Bag/valve/mask at bedside. Vent plugged into red emergency outlet. Will continue to monitor.
[2019-11-08] MEDS: ASPIRIN 81 MG TAB.CHEW NG SCH (08:28)
[2019-11-08] MEDS: Z GUARD REMEDY PASTE 57 GM TUBE TOP SCH ×2 (08:29→20:44)
[2019-11-08] MEDS: FLUOXETINE HCL 20 MG CAPSULE NG SCH (08:29)
[2019-11-08 08:49] LABS: ABG PCO2 33.5 mmHg (35.0-45.0); ABG PH 7.481 (7.350-7.450); ABG PO2 97.6 mmHg (75.0-100.0); ABG SITE LEFT RADIAL
[2019-11-08 08:50] LABS: ABG BASE EXCESS 1.1 mmol/L; ABG HCO3 24.4 mmol/L; ABG TOTAL HEMOGLOBIN 8.8 G/dL (12.0-16.0); COHb 1.2 % (0.5-1.5); MetHb 0.5 % (0.0-1.5); O2Hb 95.8 % (94.0-97.0); VENT MODE VENT - A/C; VT, ABG 400 mL
--- NOTE | 2019-11-08 11:14 | NUR ---
Dr. Humphrey here to see pt. Full report given. New orders received. No new vent changes.
--- NOTE | 2019-11-08 11:33 | NUR ---
PRIMITIVO Diallo here to see pt. Full report given. New orders received and carried out.
--- NOTE | 2019-11-08 11:35 | NUR ---
Decreased Ventilator rate to 16 per MD orders. XENA Tovar aware.
[2019-11-08] MEDS ORDERED: INVESTIGATIONAL IV MED 1 EA in IV NORMAL SALINE 230 ML IV SCH (17:30)
[2019-11-08 17:52] LABS: *BILIRUBIN,URIN NEGATIVE (NEGATIVE); *CLARITY,URINE SLIGHTLY CLOUDY (CLEAR); *COLOR,URINE YELLOW (YELLOW); *KETONES,URINE NEGATIVE (NEGATIVE); *UROBILINOGEN,URINE 0.2 E.U./dl (NORMAL); LEUKOCYTE ESTERASE ,URINE TRACE (NEGATIVE); NITRITE, URINE NEGATIVE (NEGATIVE); PH,URINE 5.5 (5.0-8.0); UGLUCOSE NEGATIVE (NEGATIVE)
[2019-11-08 17:53] LABS: *CREATININE,URINE 59.7 mg/dL (30-125); *URINE TOTAL PROTEIN RANDOM 73.5 mg/dL (<150/24HR)
[2019-11-08 18:06] LABS: *BLOOD, URINE TRACE (NEGATIVE)
[2019-11-08 18:07] LABS: RBC,URINE 0-3 /HPF (0-3); URIC ACID CRYSTALS,URINE FEW /HPF (NONE SEEN); YEAST,URINE MANY /HPF (NONE SEEN)
[2019-11-08] MEDS: ATORVASTATIN 20 MG TABLET NG SCH (20:43)
[2019-11-08] MEDS: ENOXAPARIN SODIUM 60 MG/0.6 ML DISP.SYRIN SQ SCH (20:43)
[2019-11-08] MEDS: BENZTROPINE MESYLATE 1 MG TABLET NG SCH (20:44)
--- NOTE | 2019-11-08 20:48 | NUR ---
Holding: Lovenox / oral bleeding. Addendum: 11/08/19 at 2308 by DEN SOW RN Dr Aquino notified: Lovenox held / copious oral bleeding.
[2019-11-09] VITALS (35 sets, daily range): BP systolic 100–162; BP diastolic 43–93
[2019-11-09] MEDS: BLOOD SUGAR DIAGNOSTIC 1 EACH STRIP VI SCH ×5 (00:21→23:55)
[2019-11-09] MEDS: INSULIN REGULAR, HUMAN 300 UNIT/3 ML VIAL SQ PRN ×3 (00:35→13:03)
[2019-11-09] MEDS: PROPOFOL 100 ML IV PRN ×4 (02:04→23:01)
[2019-11-09] MEDS: ALBUTEROL SULFATE 8 GM HFA.AER.AD IH SCH ×6 (02:39→23:26)
[2019-11-09] MEDS: IPRATROPIUM BROMIDE 12.9 GM INHALER INH SCH ×6 (02:39→23:27)
[2019-11-09] MEDS: IV NORMAL SALINE 250 ML IV PRN (03:20)
[2019-11-09] MEDS: methylPREDNISolone SOD SUCC 40 MG/ML VIAL IV SCH ×2 (05:16→21:04)
[2019-11-09] MEDS: PIPERACILLIN/TAZOBACTAM/D5W 3.375 G in IV DEXTROSE 5% 50 ML IV SCH ×2 (05:16→17:55)
[2019-11-09 05:24] LABS: MAGNESIUM 2.4 mg/dL (1.8-2.4)
[2019-11-09 05:27] LABS: BILIRUBIN,DIRECT 0.2 mg/dL (0.0-0.2); BILIRUBIN,TOTAL 0.4 mg/dL (0.2-1.0); CREATININE 2.5 mg/dL (0.6-1.3); POTASSIUM 3.9 mmol/L (3.5-5.1); TOTAL PROTEIN, SERUM 6.7 g/dL (6.4-8.2)
[2019-11-09 05:30] LABS: BASOPHILS % (AUTO) 0.1 % (0.0-2.0); HEMATOCRIT 29.3 % (31.2-41.9); HEMOGLOBIN 9.5 g/dL (10.9-14.3); LYMPHOCYTES # (AUTO) 0.2 K/uL (20.0-40.0); LYMPHOCYTES % (AUTO) 2.6 % (20.5-51.5); MEAN CORPUSCULAR HEMOGLOBIN 28.3 uug (24.7-32.8); MEAN CORPUSCULAR HGB CONC 32 g/dL (32.3-35.6); MEAN CORPUSCULAR VOLUME 87.3 fL (75.5-95.3); MONOCYTES # (AUTO) 0.8 K/uL (2.0-10.0); MONOCYTES % (AUTO) 8.8 % (0.0-11.0); NEUTROPHILS # (AUTO) 8.1 K/uL (1.8-8.9); NEUTROPHILS % (AUTO) 88.5 % (38.5-71.5); PLATELET COUNT (AUTO) 182 K/uL (179-408); RED BLOOD CELL COUNT(AUTO) 3.36 MIL/uL (3.63-4.92); WHITE BLOOD COUNT (AUTO) 9.1 K/uL (3.8-11.8)
[2019-11-09 08:19] LABS: ABG BASE EXCESS 3.1 mmol/L; ABG HCO3 28.3 mmol/L; ABG PCO2 46.3 mmHg (35.0-45.0); ABG PH 7.404 (7.350-7.450); ABG SITE RIGHT RADIAL; ABG TOTAL HEMOGLOBIN 9.5 G/dL (12.0-16.0); COHb 0.8 % (0.5-1.5); MetHb 0.3 % (0.0-1.5); O2Hb 95.6 % (94.0-97.0); VENT MODE VENT - A/C; VT, ABG 400 mL
[2019-11-09] MEDS: FLUOXETINE HCL 20 MG CAPSULE NG SCH (08:21)
[2019-11-09] MEDS: ASPIRIN 81 MG TAB.CHEW NG SCH (08:21)
[2019-11-09] MEDS: Z GUARD REMEDY PASTE 57 GM TUBE TOP SCH ×2 (08:22→21:00)
--- NOTE | 2019-11-09 10:30 | NUR ---
Contacted Dr. Cervantes for patient becoming amnada in the low 40's. No new orders received.
[2019-11-09] MEDS: GLUCERNA 1.2 1000ML LIQUID GT PRN (10:40)
--- NOTE | 2019-11-09 10:45 | NUR ---
Pulmonary services Dr. Herrera in the unit, full report given to Dr. Herrera. See order history for new orders.
--- NOTE | 2019-11-09 11:30 | NUR ---
Cardiology services Dr. Cervantes in the unit, full report given. See order history for new orders.
--- NOTE | 2019-11-09 16:12 | NUR ---
Nephrology services Dr. Simmons in the unit, full report given to Dr. Simmons. See order history for new orders.
--- NOTE | 2019-11-09 18:47 | NUR ---
ID Services Gus BASTER HAND, full report given to Gus. See order history for new orders.
--- NOTE | 2019-11-09 19:00 | NUR ---
Kia MCCONNELL , ID HEAD WAITER/WAITRESS IS HERE TO SEE PATIENT
--- NOTE | 2019-11-09 19:10 | NUR ---
received patient on diprivan at 30 mcg , right internal jugular intact and patent , ngt intact and checked for placement glucerna 1.2 running at 20 ml , no residual , castillo intact , vent setting ac 16 tv 400 p 8 fio2 at 35 % , no fever , responds to deep pain
[2019-11-09] MEDS: ENOXAPARIN SODIUM 60 MG/0.6 ML DISP.SYRIN SQ SCH (21:00)
[2019-11-09] MEDS: ATORVASTATIN 20 MG TABLET NG SCH (21:04)
--- NOTE | 2019-11-09 22:03 | NUR ---
LAB LEVELS BEING MONITORED DAILY AND PATIENT IS BEING SUCTIONED ACCORDING TO NEEDS , WILL BE ABLE TO TOLERATE CUREENT VENT SETTINGS Addendum: 11/09/19 at 2202 by JOSE RAMON PEACOCK RN Amended: Marlon added. Addendum: 11/09/19 at 2203 by JOSE RAMON PEACOCK RN Amended: Marlon added. Addendum: 11/09/19 at 6 by JOSE RAMON PEACOCK RN Amended: Links added.
--- NOTE | 2019-11-09 22:04 | NUR ---
PATIENT IS ON ANTIBIOTICS PER ID DOCTORS , AND LAB LEVELS ARE BEING MONITORED , WILL BE ABLE TO TOLERATE MEDIATIONS WITHOUT SEVERE SIDE EFFECTS , CURRENTLY BUN IS BEING MONITORED Addendum: 11/09/19 at 2204 by JOSE RAMON PEACOCK RN Amended: Links added. Addendum: 11/09/19 at 2206 by JOSE RAMON PEACOCK RN Amended: Marlon andino.
--- NOTE | 2019-11-09 22:06 | NUR ---
ON DIPRIVAN BEING TITRATED ACCORDING TO PATIENT'S NEEDS Addendum: 11/09/19 at 2206 by JOSE RAMON PEACOCK RN Amended: Links added.
--- NOTE | 2019-11-09 22:08 | NUR ---
NO WOUND WILL BE DEVELOPED DURING HOSPITALIZATION , ORAL CARE BEING DONE AND BEING MONITORED FOR INCREASED BLEEDING Addendum: 11/09/19 at 2208 by JOSE RAMON PEACOCK RN Amended: Links added.
[2019-11-09] MEDS: BENZTROPINE MESYLATE 1 MG TABLET NG SCH (22:30)
[2019-11-09] MEDS: INSULIN REGULAR, HUMAN 300 UNITS/3 ML VIAL SQ PRN (23:57)
[2019-11-10] VITALS (24 sets, daily range): BP systolic 80–153; BP diastolic 51–87
[2019-11-10] MEDS: IPRATROPIUM BROMIDE 12.9 GM INHALER INH SCH ×6 (03:30→22:35)
[2019-11-10] MEDS: ALBUTEROL SULFATE 8 GM HFA.AER.AD IH SCH ×6 (03:30→22:35)
--- NOTE | 2019-11-10 04:00 | NUR ---
RESTLESS , AWAKE , DIPRIVAN WAS INCREASED , SUCTIONED WITH LARGE EXPECTORATED MUCOUS PLUG ORALLY WITH CLOTS , AWARE
[2019-11-10 05:09] LABS: BASOPHILS % (AUTO) 0.2 % (0.0-2.0); HEMATOCRIT 27.9 % (31.2-41.9); HEMOGLOBIN 8.9 g/dL (10.9-14.3); LYMPHOCYTES # (AUTO) 0.6 K/uL (20.0-40.0); LYMPHOCYTES % (AUTO) 6.9 % (20.5-51.5); MEAN CORPUSCULAR HGB CONC 32 g/dL (32.3-35.6); MEAN CORPUSCULAR VOLUME 87.4 fL (75.5-95.3); MONOCYTES # (AUTO) 0.7 K/uL (2.0-10.0); MONOCYTES % (AUTO) 7.7 % (0.0-11.0); NEUTROPHILS # (AUTO) 7.5 K/uL (1.8-8.9); NEUTROPHILS % (AUTO) 85.2 % (38.5-71.5); PLATELET COUNT (AUTO) 182 K/uL (179-408); RED BLOOD CELL COUNT(AUTO) 3.19 MIL/uL (3.63-4.92); WHITE BLOOD COUNT (AUTO) 8.9 K/uL (3.8-11.8)
[2019-11-10] MEDS: PIPERACILLIN/TAZOBACTAM/D5W 3.375 G in IV DEXTROSE 5% 50 ML IV SCH ×3 (05:17→22:16)
[2019-11-10 05:18] LABS: MAGNESIUM 2.2 mg/dL (1.8-2.4); PHOSPHOROUS 3.1 mg/dL (2.5-4.9)
[2019-11-10 05:23] LABS: BILIRUBIN,DIRECT 0.1 mg/dL (0.0-0.2); BILIRUBIN,TOTAL 0.3 mg/dL (0.2-1.0); CREATININE 2.1 mg/dL (0.6-1.3); POTASSIUM 3.8 mmol/L (3.5-5.1); TOTAL PROTEIN, SERUM 6.6 g/dL (6.4-8.2)
[2019-11-10 05:24] LABS: ABG BASE EXCESS 3.7 mmol/L; ABG HCO3 29.6 mmol/L; ABG PCO2 50.9 mmHg (35.0-45.0); ABG PH 7.382 (7.350-7.450); ABG PO2 94.5 mmHg (75.0-100.0); ABG SITE RIGHT RADIAL; ABG TOTAL HEMOGLOBIN 10.3 G/dL (12.0-16.0); COHb 0.9 % (0.5-1.5); MetHb 0.3 % (0.0-1.5); O2Hb 95.7 % (94.0-97.0); VENT MODE VENT - A/C; VT, ABG 400 mL
--- NOTE | 2019-11-10 06:00 | NUR ---
DIPRIVAN IS AT 50 MCG , MORE CALM AND RELAXED , REPSONDS TO LIGHT TOUCH TOUCH IJ DRESSING CHANGED , SUTURE INTACT , ET INTACT WITH VENT SETTING OC AC 16 TV 400 P 8 35 % FIO2 , ABG AND CXR DONE
[2019-11-10] MEDS: INSULIN REGULAR, HUMAN 300 UNIT/3 ML VIAL SQ PRN ×2 (06:02→13:04)
[2019-11-10] MEDS: BLOOD SUGAR DIAGNOSTIC 1 EACH STRIP VI SCH ×4 (06:02→23:30)
[2019-11-10] MEDS: PROPOFOL 100 ML IV PRN ×4 (06:57→21:15)
--- NOTE | 2019-11-10 07:55 | NUR ---
Pulmonary services, Dr. Herrera in the unit to see and examine patient, report given, and while at bedside informed of oral bleeding. Orders to continue with care plan received.
--- NOTE | 2019-11-10 08:09 | NUR ---
PT RECEIVED ON MECHANICAL VENTILATION WITH SETTINGS OF AC 16, VT 400, PEEP +8, FIO2 35%. PT ORALLY INTUBATED WITH 7.5 ETT APPROXIMATELY 23 CM AT THE LIP. ETT IS SECURED VIA ANCHOR FAST. NO CHANGES MADE AT THIS TIME. Q4 MDI TX ADMINISTERED PER MD ORDER. ORALLY SUCTIONED MODERATE AMOUNT OF THICK BLOOD OUT OF PATIENTS MOUTH. RN ALEXANDRA AWARE. SUCTIONED SMALL AMOUNT OF THICK, PALE SECRETIONS. NO S/S OF RESPIRATORY DISTRESS NOTED. VENT ALARMS CHECKED, ARE ON AND AUDIBLE. VENT IS PLUGGED INTO RED EMERGENCY OUTLET. AMBU BAG IS AT BEDSIDE. WILL CONTINUE TO MONITOR THROUGHOUT SHIFT.
[2019-11-10] MEDS: FLUOXETINE HCL 20 MG CAPSULE NG SCH (08:29)
[2019-11-10] MEDS: methylPREDNISolone SOD SUCC 40 MG/ML VIAL IV SCH ×2 (08:29→21:14)
[2019-11-10] MEDS: Z GUARD REMEDY PASTE 57 GM TUBE TOP SCH ×2 (08:30→21:00)
--- NOTE | 2019-11-10 08:30 | NUR ---
VENT CHANGES MADE. PEEP CHANGED FROM +8 TO +6 PER MD ORDER. NEW VENT SETTINGS: AC 16, VT 400, PEEP +6, 35%. RN ALEXANDRA AWARE OF INTERVENTION. WILL CONTINUE TO MONITOR.
--- NOTE | 2019-11-10 08:30 | NUR ---
RT at bedside and as ordered Peep drop to 6. with no other changes.
--- NOTE | 2019-11-10 15:02 | NUR ---
Cardiology services, Dr. Cervantes in the unit to see and examine patient, report given. Orders to continue with care plan received.
--- NOTE | 2019-11-10 15:57 | NUR ---
Attending physician, Dr. Andres in the unit to see and examine patient, full report given, orders to continue with care plan received.
--- NOTE | 2019-11-10 18:08 | NUR ---
Left patient in bed resting adequately sedated, with propofol running at 52mcg/kg/min. Pt. Ventilating above desired limits on A/C of 16, Tv400, Peep 6, and FIO2 35%. Tolerating TF well with no residuals. with oral care around the clock bleeding from mouth area decreased. Garcia to gravity with adequate urine output. No skin breakdown, no injury sustained. 3LRIJ patent with all ports flushing. Will endorse to incoming shift for continuity of care plan.
--- NOTE | 2019-11-10 19:33 | NUR ---
Pt received on Lima settings AC 16, VT 400, PEEP+6 and FIO2-35%. 7.5 ETT is patent and secure at approx. 23cm at the lip. Pt to be monitored throughout the shift and PRN SX. Pt is in no resp. distress and appears to be tolerating ventilator settings well. Lima alarms have been checked and remain audible.
[2019-11-10] MEDS: BENZTROPINE MESYLATE 1 MG TABLET NG SCH (21:00)
[2019-11-10] MEDS: ATORVASTATIN 20 MG TABLET NG SCH (21:14)
[2019-11-10] MEDS: INSULIN REGULAR, HUMAN 300 UNITS/3 ML VIAL SQ PRN (23:31)
--- NOTE | 2019-11-10 23:45 | NUR ---
PATIENT BEING MONITORED FOR ALOC , CURRENTLY ON ANTIBIOTICS , LAB LEVELS BEING MINITORED , PATIENT WILL RSPOND TO MEDICATIONS Addendum: 11/10/19 at 2345 by JOSE RAMON PEACOCK RN Amended: Links added.
--- NOTE | 2019-11-10 23:46 | NUR ---
ABG BEING MONITORED DAILY AND VENT SETTINGS CURRENTLY ON 16 TV 400 P 6 35 % FIO2 Addendum: 11/10/19 at 2346 by JOSE RAMON PEACOCK RN Amended: Links added. Addendum: 11/10/19 at 2353 by JOSE RAMON PEACOCK RN Amended: Links added.
--- NOTE | 2019-11-10 23:53 | NUR ---
NUTRITIONAL CONSULT DONE , CURRENTLY ON GLUCERNA 1.2 AT 20 ML X 22 HOURS Addendum: 11/10/19 at 9523 by JOSE RAMON PEACOCK RN Amended: Links added.
[2019-11-11] VITALS (24 sets, daily range): BP systolic 92–186; BP diastolic 59–100
[2019-11-11] MEDS: PROPOFOL 100 ML IV PRN ×5 (02:01→21:34)
[2019-11-11] MEDS: ALBUTEROL SULFATE 8 GM HFA.AER.AD IH SCH ×6 (02:30→22:30)
[2019-11-11] MEDS: IPRATROPIUM BROMIDE 12.9 GM INHALER INH SCH ×6 (02:30→22:30)
[2019-11-11 05:26] LABS: CREATININE 1.8 mg/dL (0.6-1.3); POTASSIUM 4.4 mmol/L (3.5-5.1)
[2019-11-11] MEDS: PIPERACILLIN/TAZOBACTAM/D5W 3.375 G in IV DEXTROSE 5% 50 ML IV SCH ×3 (05:30→21:49)
[2019-11-11 05:31] LABS: MAGNESIUM 2.1 mg/dL (1.8-2.4); PHOSPHOROUS 3.3 mg/dL (2.5-4.9)
[2019-11-11] MEDS: GLUCERNA 1.2 1000ML LIQUID GT PRN (05:36)
--- NOTE | 2019-11-11 06:00 | NUR ---
PATIENT IS SEDATED WITH PROPOFOL AT 60 MCG , AROUSABLE WITH DEEP PAIN , IJ INTACT WITH SUTURES , VENT SETTINGS AT AC 16 TV 400 P6 FIOS35% , LAST BS 163 , , EPSTEIN INTACT , CXR DONE
[2019-11-11 06:02] LABS: ABG BASE EXCESS 7.1 mmol/L; ABG HCO3 32.1 mmol/L; ABG PCO2 48.4 mmHg (35.0-45.0); ABG PH 7.439 (7.350-7.450); ABG PO2 87.1 mmHg (75.0-100.0); ABG SITE LEFT BRACHIAL; ABG TOTAL HEMOGLOBIN 8.9 G/dL (12.0-16.0); MetHb 0.3 % (0.0-1.5); O2Hb 95.2 % (94.0-97.0); VENT MODE VENT - A/C; VT, ABG 400 mL
[2019-11-11 06:04] LABS: BASOPHILS % (AUTO) 0.1 % (0.0-2.0); HEMATOCRIT 25.7 % (31.2-41.9); HEMOGLOBIN 8.3 g/dL (10.9-14.3); LYMPHOCYTES # (AUTO) 0.5 K/uL (20.0-40.0); LYMPHOCYTES % (AUTO) 6.1 % (20.5-51.5); MEAN CORPUSCULAR HEMOGLOBIN 28.2 uug (24.7-32.8); MEAN CORPUSCULAR HGB CONC 32 g/dL (32.3-35.6); MEAN CORPUSCULAR VOLUME 87.3 fL (75.5-95.3); MONOCYTES # (AUTO) 0.4 K/uL (2.0-10.0); MONOCYTES % (AUTO) 5.8 % (0.0-11.0); NEUTROPHILS # (AUTO) 6.7 K/uL (1.8-8.9); PLATELET COUNT (AUTO) 188 K/uL (179-408); RED BLOOD CELL COUNT(AUTO) 2.94 MIL/uL (3.63-4.92); WHITE BLOOD COUNT (AUTO) 7.6 K/uL (3.8-11.8)
[2019-11-11] MEDS: BLOOD SUGAR DIAGNOSTIC 1 EACH STRIP VI SCH ×4 (06:08→23:49)
[2019-11-11] MEDS: INSULIN REGULAR, HUMAN 300 UNIT/3 ML VIAL SQ PRN (06:09)
[2019-11-11 06:27] LABS: LYMPHOCYTES % (MANUAL) 3 % (20-40); MONOCYTES % (MANUAL) 7 % (2-10); NEUTROPHILS % (MANUAL) 90 % (42-75)
--- NOTE | 2019-11-11 07:15 | NUR ---
Received patient in bed resting sedated, with propofol running at 60mcg/kg/min. Pt. On A/C of 16, Tv400, Peep 6, and FIO2 35%. saturation within desired limits. Tolerating TF well as reported no residuals with one bm throughout the shift. Garcia to gravity with adequate urine output.
--- NOTE | 2019-11-11 07:45 | NUR ---
Attending physician Dr Andres in the unit to see and examine patient, full report given. Orders to continue with care plan received.
[2019-11-11] MEDS: Z GUARD REMEDY PASTE 57 GM TUBE TOP SCH ×2 (08:12→20:33)
[2019-11-11] MEDS: FLUOXETINE HCL 20 MG CAPSULE NG SCH (08:12)
[2019-11-11] MEDS: methylPREDNISolone SOD SUCC 40 MG/ML VIAL IV SCH ×2 (08:12→20:32)
--- NOTE | 2019-11-11 08:22 | NUR ---
Pulmonary services, in the unit to see and examine patient, report given see order hx.
--- NOTE | 2019-11-11 10:30 | NUR ---
Cardiology services, in to examine pt.
--- NOTE | 2019-11-11 12:50 | NUR ---
A call to Dr. Herrera to informed him of Dr. Cervantes's suggestion to change sedation. Dr. Herrera didn't agree on suggested changes due to weaning difficulty. Dr. Cervantes informed orders to continue with care plan received.
[2019-11-11] MEDS: IV NORMAL SALINE 250 ML IV PRN (14:12)
--- NOTE | 2019-11-11 18:19 | NUR ---
Attending physician, Lincoln Delgado in the unit to see and examine pt.
--- NOTE | 2019-11-11 19:01 | NUR ---
Left patient in bed resting adequately sedated, with propofol running at 57mcg/kg/min. Saturation desired limits on A/C of 16, Tv400, Peep 6, and FIO2 35%. Tolerating TF well with no residuals. Oral bleeding stopped. Garcia to gravity with adequate urine output. No skin breakdown, no injury sustained. 3LRIJ patent with all ports flushing. Will endorse to incoming shift for continuity of care plan
--- NOTE | 2019-11-11 19:30 | NUR ---
Report received. Patient on COVID-19 isolation, orally intubated and to mechanical ventilator with settings: AC=16, VM=039re, FIO2=35% and PEEP=6 cm. O2 saturations above 92 %. On continuous Diprivan drip at 57 mcg/kg/min via RIJ TLC. Grimaces to suctioning, but doesn't open eyes. Assessment done. Turned and repositioned. Cleaned for a small soft green BM. Skin care provided. Addendum: 11/11/19 at 2201 by KORIN LUCIANO RN Amended: Links added. Addendum: 11/11/19 at 2201 by KORIN LUCIANO RN Amended: Links added. Addendum: 11/11/19 at 2201 by KORIN LUCIANO RN Amended: Links added. Addendum: 11/11/19 at 2202 by KORIN LUCIANO RN Amended: Links added. Addendum: 11/11/19 at 2202 by KORIN LUCIANO RN Amended: Links added. Addendum: 11/11/19 at 2203 by KORIN LUCIANO RN Amended: Links added. Addendum: 11/11/19 at 2211 by KORIN LUCIANO RN Amended: Links added. Addendum: 11/11/19 at 2213 by KORIN LUCIANO RN Amended: Links added. Addendum: 11/11/19 at 2213 by KORIN LUCIANO RN Amended: Links added. Addendum: 11/11/19 at 2213 by KORIN LUCIANO RN Amended: Links added. Addendum: 11/11/19 at 2214 by KORIN LUCIANO RN Amended: Links added. Addendum: 11/11/19 at 4 by KORIN LUCIANO RN Amended: Links added. Addendum: 11/11/19 at 2215 by KORIN LUCIANO RN Amended: Links added. Addendum: 11/11/19 at 2215 by KORIN LUCIANO RN Amended: Links added.
[2019-11-11] MEDS ORDERED: DEXTROSE 50% 50 ML DISP.SYRIN IV PRN (20:30)
[2019-11-11] MEDS: ATORVASTATIN 20 MG TABLET NG SCH (20:32)
[2019-11-11] MEDS: BENZTROPINE MESYLATE 1 MG TABLET NG SCH (20:34)
[2019-11-11] MEDS: ACETAMINOPHEN 650 MG/20.3 ML LIQUID UDC NG PRN (22:39)
--- NOTE | 2019-11-11 22:39 | NUR ---
BPs trending higher. Patient mildly agitated. Tylenol given. Cleaned for another small green BM. Turned and repositioned. Will monitor.
--- NOTE | 2019-11-11 23:00 | NUR ---
Suctioned by RT. Cleaned for another small BM. SBP 170, with facial grimacing. Diprivan drip titrated up to 60 mcg/kg/min. Turned; HOB elevated above 30 degrees at all times.
[2019-11-12] VITALS (25 sets, daily range): BP systolic 99–175; BP diastolic 57–104
--- NOTE | 2019-11-12 | NUR ---
BP now 150 systole. Remains in sinus bradycardia rate 48-50's.
[2019-11-12] MEDS: PROPOFOL 100 ML IV PRN ×5 (02:07→19:29)
[2019-11-12] MEDS: ALBUTEROL SULFATE 8 GM HFA.AER.AD IH SCH ×6 (03:30→23:40)
[2019-11-12] MEDS: IPRATROPIUM BROMIDE 12.9 GM INHALER INH SCH ×6 (03:30→23:41)
[2019-11-12 05:09] LABS: BASOPHILS % (AUTO) 0.1 % (0.0-2.0); EOSINOPHILS % (AUTO) 0.1 % (0.0-7.0); HEMATOCRIT 24.8 % (31.2-41.9); HEMOGLOBIN 7.9 g/dL (10.9-14.3); LYMPHOCYTES # (AUTO) 0.5 K/uL (20.0-40.0); LYMPHOCYTES % (AUTO) 6.1 % (20.5-51.5); MEAN CORPUSCULAR HEMOGLOBIN 27.8 uug (24.7-32.8); MEAN CORPUSCULAR HGB CONC 32 g/dL (32.3-35.6); MEAN CORPUSCULAR VOLUME 87.2 fL (75.5-95.3); MONOCYTES # (AUTO) 0.6 K/uL (2.0-10.0); MONOCYTES % (AUTO) 7.7 % (0.0-11.0); NEUTROPHILS # (AUTO) 6.8 K/uL (1.8-8.9); PLATELET COUNT (AUTO) 202 K/uL (179-408); RED BLOOD CELL COUNT(AUTO) 2.84 MIL/uL (3.63-4.92); WHITE BLOOD COUNT (AUTO) 7.9 K/uL (3.8-11.8)
[2019-11-12 05:22] LABS: CREATININE 1.6 mg/dL (0.6-1.3); POTASSIUM 4.1 mmol/L (3.5-5.1)
[2019-11-12] MEDS: PIPERACILLIN/TAZOBACTAM/D5W 3.375 G in IV DEXTROSE 5% 50 ML IV SCH (05:23)
[2019-11-12 05:40] LABS: BILIRUBIN,DIRECT 0.1 mg/dL (0.0-0.2); BILIRUBIN,TOTAL 0.3 mg/dL (0.2-1.0); MAGNESIUM 2.1 mg/dL (1.8-2.4); PHOSPHOROUS 3.7 mg/dL (2.5-4.9)
[2019-11-12] MEDS: BLOOD SUGAR DIAGNOSTIC 1 EACH STRIP VI SCH ×3 (05:40→18:09)
[2019-11-12] MEDS: INSULIN REGULAR, HUMAN 300 UNIT/3 ML VIAL SQ PRN (05:42)
--- NOTE | 2019-11-12 06:15 | NUR ---
Continues to have soft, liquid green BMs. Flexi seal inserted and irrigated. Skin care provided. NGT feedings tolerated well; off 1029-2401. Saturations above 96% on current vent settings. Still with small bloody tinged secretions from mouth. BPs go up to above 150's during care. Diprivan drip remains at 60 mcg/kg/min. COVID 19 isolation maintained. Addendum: 11/12/19 at 616 by KORIN LUCIANO RN Amended: Links added. Addendum: 11/12/19 at 18 by KORIN LUCIANO RN Amended: Links added.
[2019-11-12 06:25] LABS: ABG BASE EXCESS 6.7 mmol/L; ABG HCO3 30.8 mmol/L; ABG PCO2 42.3 mmHg (35.0-45.0); ABG PO2 99.3 mmHg (75.0-100.0); ABG SITE LEFT BRACHIAL; ABG TOTAL HEMOGLOBIN 8.7 G/dL (12.0-16.0); MetHb 0.2 % (0.0-1.5); O2Hb 96.8 % (94.0-97.0); VENT MODE VENT - A/C; VT, ABG 400 mL
[2019-11-12] MEDS: FLUOXETINE HCL 20 MG CAPSULE NG SCH (07:34)
[2019-11-12] MEDS: methylPREDNISolone SOD SUCC 40 MG/ML VIAL IV SCH ×2 (07:38→20:25)
[2019-11-12] MEDS: Z GUARD REMEDY PASTE 57 GM TUBE TOP SCH ×2 (07:39→20:26)
--- NOTE | 2019-11-12 07:51 | NUR ---
Dr. Herrera here to see pt. Full report given. New orders received.
[2019-11-12] MEDS: GLUCERNA 1.2 1000ML LIQUID GT PRN (08:31)
--- NOTE | 2019-11-12 12:11 | NUR ---
Spoke with Dr. Stark on the telephone regarding pt's continuously high blood pressure. New orders received and carried out.
[2019-11-12] MEDS: AMLODIPINE 5 MG TABLET PO SCH ×2 (12:25→20:25)
[2019-11-12] MEDS: hydrALAZINE HCL 25 MG TABLET PO PRN ×2 (12:25→22:27)
--- NOTE | 2019-11-12 13:00 | NUR ---
At 1230, norvasc and apresoline prn for SBP 170's. Current SBP 112/66. BP meds proven effective. Will continue to monitor pt.
--- NOTE | 2019-11-12 16:51 | NUR ---
Dr. Cervantes here to see pt. Full report given. No new orders received.
--- NOTE | 2019-11-12 17:14 | NUR ---
Dr. Aquino here to see pt. Full report given. No new orders received.
--- NOTE | 2019-11-12 19:30 | NUR ---
Patient COVID 19 positive, orally intubated and to mechanical ventilator with same settings. Adequately sedated with Diprivan drip at 60 mcg/kg/min via RIJ TLC. Coughing and grimacing with suctioning. Turned and repositioned. Complete assessment done; see flow sheet for details. Addendum: 11/12/19 at 2158 by KORIN LUCIANO RN Amended: Links added.
--- NOTE | 2019-11-12 20:06 | NUR ---
Pt received in stable respiratory condition on [place] vent with settings: AC mode rate of 16, Vt 400, +5, 35% FiO2. 7.5 ETT is patent and secured at 25cm lip line. Suction PRN. No distress noted and tolerates vent settings well. Tx given as ordered. Alarms on and audible. Will continue to monitor.
[2019-11-12] MEDS: BENZTROPINE MESYLATE 1 MG TABLET NG SCH (20:25)
[2019-11-12] MEDS: ATORVASTATIN 20 MG TABLET NG SCH (20:25)
[2019-11-12] MEDS: IV NORMAL SALINE 250 ML IV PRN (21:37)
--- NOTE | 2019-11-12 22:25 | NUR ---
BPs 160's systole. Hydralazine and Tylenol given via NGT.
[2019-11-12] MEDS: ACETAMINOPHEN 650 MG/20.3 ML LIQUID UDC NG PRN (22:28)
[2019-11-13] VITALS (36 sets, daily range): BP systolic 88–162; BP diastolic 44–99
--- NOTE | 2019-11-13 | NUR ---
Hydralazine effective.
[2019-11-13] MEDS: BLOOD SUGAR DIAGNOSTIC 1 EACH STRIP VI SCH ×5 (00:07→23:54)
[2019-11-13] MEDS: PROPOFOL 100 ML IV PRN ×4 (00:10→22:21)
[2019-11-13 00:41] LABS: *OCCULT BLOOD STOOL POSITIVE (NEGATIVE)
[2019-11-13] MEDS: IPRATROPIUM BROMIDE 12.9 GM INHALER INH SCH ×6 (03:43→23:39)
[2019-11-13] MEDS: ALBUTEROL SULFATE 8 GM HFA.AER.AD IH SCH ×6 (03:43→23:39)
--- NOTE | 2019-11-13 04:00 | NUR ---
Am care rendered. Patient tolerated care fairly well. Requires frequent oral suctioning; with large amounts of bloody tinged secretions. Addendum: 11/13/19 at 0552 by KORIN LUCIANO RN Amended: Links added. Addendum: 11/13/19 at 0648 by KORIN LUCIANO RN Amended: Links added. Addendum: 11/13/19 at 0649 by KORIN LUCIANO RN Amended: Links added.
--- NOTE | 2019-11-13 05:00 | NUR ---
Sebastien zelaya titrated down; for CPAP this am. Addendum: 11/13/19 at 0649 by KORIN LUCIANO RN Amended: Links added.
[2019-11-13 05:26] LABS: BASOPHILS % (AUTO) 0.1 % (0.0-2.0); CREATININE 1.5 mg/dL (0.6-1.3); EOSINOPHILS % (AUTO) 0.1 % (0.0-7.0); HEMATOCRIT 25.4 % (31.2-41.9); HEMOGLOBIN 8.2 g/dL (10.9-14.3); LYMPHOCYTES # (AUTO) 0.5 K/uL (20.0-40.0); MEAN CORPUSCULAR HEMOGLOBIN 28.4 uug (24.7-32.8); MEAN CORPUSCULAR HGB CONC 32 g/dL (32.3-35.6); MEAN CORPUSCULAR VOLUME 88.2 fL (75.5-95.3); MONOCYTES # (AUTO) 0.6 K/uL (2.0-10.0); NEUTROPHILS # (AUTO) 7.4 K/uL (1.8-8.9); NEUTROPHILS % (AUTO) 86.8 % (38.5-71.5); PLATELET COUNT (AUTO) 231 K/uL (179-408); RED BLOOD CELL COUNT(AUTO) 2.88 MIL/uL (3.63-4.92); WHITE BLOOD COUNT (AUTO) 8.5 K/uL (3.8-11.8)
[2019-11-13 05:30] LABS: MAGNESIUM 1.8 mg/dL (1.8-2.4); PHOSPHOROUS 3.6 mg/dL (2.5-4.9)
--- NOTE | 2019-11-13 06:10 | NUR ---
Placed pt on CPAP with PSV 8 per MD orders. Pt remains currently stable and tolerates current settings. Nurse aware. Will continue to monitor.
--- NOTE | 2019-11-13 06:20 | NUR ---
Monitored closely while on CPAP; opens eyes, withdraws to pain but not following commands. Suctioned for large amounts of clear oral secretions. Addendum: 11/13/19 at 0724 by KORIN LUCIANO RN Amended: Links added.
--- NOTE | 2019-11-13 06:47 | NUR ---
Appears to be tolerating CPAP fairly well. RR 17-20/min; saturations 96-100%. Addendum: 11/13/19 at 0648 by KORIN LUCIANO RN Amended: Links added. Addendum: 11/13/19 at 0649 by KORIN LUCIANO RN Amended: Links added.
--- NOTE | 2019-11-13 07:30 | NUR ---
DOCTOR LEHMAN IN THE UNIT TO SEE PATIENT.
[2019-11-13 07:39] LABS: ABG BASE EXCESS 5.3 mmol/L; ABG HCO3 30.8 mmol/L; ABG PCO2 49.4 mmHg (35.0-45.0); ABG PH 7.413 (7.350-7.450); ABG PO2 99.8 mmHg (75.0-100.0); ABG SITE RIGHT FEMORAL; COHb 0.9 % (0.5-1.5); MetHb 0.3 % (0.0-1.5); O2Hb 96.5 % (94.0-97.0); VENT MODE VENT - CPAP
[2019-11-13] MEDS: methylPREDNISolone SOD SUCC 40 MG/ML VIAL IV SCH ×2 (07:57→20:04)
[2019-11-13] MEDS: FLUOXETINE HCL 20 MG CAPSULE NG SCH (07:57)
[2019-11-13] MEDS: AMLODIPINE 5 MG TABLET PO SCH ×2 (07:58→20:05)
--- NOTE | 2019-11-13 08:00 | NUR ---
PATIENT PLACED BACK ON AC12. WILL CONTINUE TO WEAN TOMORROW. PLACED ON LOW SEDATION. WILL MONITOR PATIENT ORAL AND DEEP SECRETIONS FOR BLOOD. LOVENOX ALREADY HAS BEEN DISCONTINUED.
[2019-11-13] MEDS: Z GUARD REMEDY PASTE 57 GM TUBE TOP SCH ×2 (08:01→20:06)
--- NOTE | 2019-11-13 14:00 | NUR ---
DOCTOR NICK IN THE UNIT TO SEE PATIENT.
--- NOTE | 2019-11-13 15:30 | NUR ---
DOCTOR REGINALD IN THE UNIT TO SEE PATIENT.
--- NOTE | 2019-11-13 17:00 | NUR ---
PATIENT HAS BEEN STABLE IN VENTILATION AND NO MORE BLEEDING WHILE SUCTIONING NOTED.
--- NOTE | 2019-11-13 19:45 | NUR ---
Received pt resting in bed, on droplet/contact precautions. Pt on DIPRIVAN drip at 35 mcg/min. Pt unable to follow commands, but withdraws to light stimuli. Pt tolerating current vent settings. O2 sats up to 100%. SB on monitor, no acute distress noted. Assessment completed. Pt turned and repositioned. Safety precautions maintained. Continue plan of care.
[2019-11-13] MEDS: ATORVASTATIN 20 MG TABLET NG SCH (20:05)
[2019-11-13] MEDS: BENZTROPINE MESYLATE 1 MG TABLET NG SCH (20:05)
[2019-11-13] MEDS: IV NORMAL SALINE 250 ML IV PRN (22:21)
[2019-11-13] MEDS: INSULIN REGULAR, HUMAN 300 UNIT/3 ML VIAL SQ PRN (23:55)
[2019-11-14] VITALS (27 sets, daily range): BP systolic 96–171; BP diastolic 58–99
[2019-11-14] MEDS: IPRATROPIUM BROMIDE 12.9 GM INHALER INH SCH ×6 (03:46→23:30)
[2019-11-14] MEDS: ALBUTEROL SULFATE 8 GM HFA.AER.AD IH SCH ×6 (03:46→23:30)
[2019-11-14] MEDS: BLOOD SUGAR DIAGNOSTIC 1 EACH STRIP VI SCH ×3 (05:11→18:38)
[2019-11-14 05:16] LABS: BASOPHILS % (AUTO) 0.1 % (0.0-2.0); EOSINOPHILS % (AUTO) 0.1 % (0.0-7.0); HEMATOCRIT 25.2 % (31.2-41.9); HEMOGLOBIN 8.2 g/dL (10.9-14.3); LYMPHOCYTES # (AUTO) 0.8 K/uL (20.0-40.0); LYMPHOCYTES % (AUTO) 9.1 % (20.5-51.5); MEAN CORPUSCULAR HEMOGLOBIN 28.7 uug (24.7-32.8); MEAN CORPUSCULAR HGB CONC 33 g/dL (32.3-35.6); MEAN CORPUSCULAR VOLUME 88.4 fL (75.5-95.3); MONOCYTES # (AUTO) 0.8 K/uL (2.0-10.0); NEUTROPHILS # (AUTO) 6.8 K/uL (1.8-8.9); NEUTROPHILS % (AUTO) 80.7 % (38.5-71.5); PLATELET COUNT (AUTO) 251 K/uL (179-408); RED BLOOD CELL COUNT(AUTO) 2.85 MIL/uL (3.63-4.92); WHITE BLOOD COUNT (AUTO) 8.4 K/uL (3.8-11.8)
[2019-11-14] MEDS: PROPOFOL 100 ML IV PRN (05:20)
[2019-11-14 05:31] LABS: CREATININE 1.4 mg/dL (0.6-1.3); POTASSIUM 4.2 mmol/L (3.5-5.1)
[2019-11-14 05:39] LABS: MAGNESIUM 1.8 mg/dL (1.8-2.4); PHOSPHOROUS 3.4 mg/dL (2.5-4.9)
--- NOTE | 2019-11-14 05:40 | NUR ---
AM care rendered. Kept pt clean and dry. Pt tolerating current vent settings at this time. O2 sats up to 99%. CPAP trial in AM. Continue plan of care. Addendum: 11/14/19 at 06 by MAKENZIE ESCAMILLA RN DIPRIVAN titrated down at this time.
--- NOTE | 2019-11-14 06:15 | NUR ---
CPAP trial initiated at this time. RT at bedside. Pt opens eyes spontaneously but unable to follow commands. No acute distress noted. Continue to monitor pt closely.
--- NOTE | 2019-11-14 06:16 | NUR ---
PLACED PATIENT ON CPAP WITH PSV 8 PER MD ORDERS. PT LOOKS STABLE AND IS TOLERATING CURRENT SETTINGS. NO SOB NOTED AT THIS TIME. RN MAKENZIE AWARE. ABG IN AN HOUR, WILL ENDORSE TO DAY SHIFT.
--- NOTE | 2019-11-14 06:45 | NUR ---
Pt appears to be tolerating CPAP well. O2 sats up to 99%. RR between 14-18/min. No acute distress noted. Continue to monitor closely.
[2019-11-14 07:08] LABS: FERRITIN 132 ng/mL (8-252); LACTATE DEHYDROGENASE 533 U/L (81-234)
[2019-11-14 07:36] LABS: ABG BASE EXCESS 4.2 mmol/L; ABG HCO3 29.2 mmol/L; ABG PO2 83.8 mmHg (75.0-100.0); ABG SITE RIGHT RADIAL; ABG TOTAL HEMOGLOBIN 8.5 G/dL (12.0-16.0); COHb 0.9 % (0.5-1.5); CPAP,BG 8 cmH20; MetHb 0.2 % (0.0-1.5); VENT MODE CPAP
[2019-11-14] MEDS ORDERED: ALBUTEROL SULFATE 2.5 MG/3 ML NEBU NEB PRN (08:15)
[2019-11-14] MEDS ORDERED: DC PROPOFOL ONCE EXTUBATED XX PRN (08:15)
[2019-11-14] MEDS ORDERED: IPRATROPIUM BROMIDE 0.5 MG/2.5 ML NEBU NEB PRN (08:15)
[2019-11-14] MEDS: AMLODIPINE 5 MG TABLET PO SCH ×2 (08:48→20:26)
[2019-11-14] MEDS: methylPREDNISolone SOD SUCC 40 MG/ML VIAL IV SCH ×2 (08:49→20:25)
[2019-11-14] MEDS: Z GUARD REMEDY PASTE 57 GM TUBE TOP SCH ×2 (08:49→20:26)
[2019-11-14] MEDS: FLUOXETINE HCL 20 MG CAPSULE NG SCH (08:49)
--- NOTE | 2019-11-14 09:25 | NUR ---
patient extubated per RT at this time. and placed 4L NC saturation 97%. Patient coughing up secretions with some oral suctioning assistance. opens and eyes mumbles does not verbalize at this time.
--- NOTE | 2019-11-14 09:55 | NUR ---
Extubated Pt at this time with no complications. Placed on nasal cannula 4lpm O2. SpO2 97%, rate of 18. Pt has good cough, orally suctioned. Patient is awake mumbles but does not verbalize. RN is aware. Will continue to monitor.
[2019-11-14] MEDS: INSULIN REGULAR, HUMAN 300 UNIT/3 ML VIAL SQ PRN (18:39)
[2019-11-14] MEDS: Z GUARD REMEDY PASTE 57 GM TUBE TOP PRN (19:45)
[2019-11-14] MEDS: ATORVASTATIN 20 MG TABLET NG SCH (20:25)
[2019-11-14] MEDS: BENZTROPINE MESYLATE 1 MG TABLET NG SCH (20:25)
[2019-11-14] MEDS: IV NORMAL SALINE 250 ML IV PRN (21:21)
[2019-11-15] VITALS (24 sets, daily range): BP systolic 105–179; BP diastolic 61–100
[2019-11-15] MEDS: BLOOD SUGAR DIAGNOSTIC 1 EACH STRIP VI SCH ×5 (00:40→23:31)
[2019-11-15] MEDS: ALBUTEROL SULFATE 8 GM HFA.AER.AD IH SCH ×5 (03:30→21:20)
[2019-11-15] MEDS: IPRATROPIUM BROMIDE 12.9 GM INHALER INH SCH ×5 (03:30→21:19)
[2019-11-15] MEDS: IV NORMAL SALINE 250 ML IV PRN ×2 (05:36→21:27)
[2019-11-15] MEDS: INSULIN REGULAR, HUMAN 300 UNIT/3 ML VIAL SQ PRN ×4 (05:37→23:33)
--- NOTE | 2019-11-15 06:30 | NUR ---
Sent spec nieves virus.
[2019-11-15 06:32] LABS: BASOPHILS % (AUTO) 0.3 % (0.0-2.0); HEMATOCRIT 25.5 % (31.2-41.9); HEMOGLOBIN 8.1 g/dL (10.9-14.3); LYMPHOCYTES # (AUTO) 0.6 K/uL (20.0-40.0); LYMPHOCYTES % (AUTO) 6.9 % (20.5-51.5); MEAN CORPUSCULAR HEMOGLOBIN 28.4 uug (24.7-32.8); MEAN CORPUSCULAR HGB CONC 32 g/dL (32.3-35.6); MEAN CORPUSCULAR VOLUME 89.1 fL (75.5-95.3); MONOCYTES # (AUTO) 0.6 K/uL (2.0-10.0); MONOCYTES % (AUTO) 6.4 % (0.0-11.0); NEUTROPHILS # (AUTO) 7.7 K/uL (1.8-8.9); NEUTROPHILS % (AUTO) 86.4 % (38.5-71.5); PLATELET COUNT (AUTO) 261 K/uL (179-408); RED BLOOD CELL COUNT(AUTO) 2.87 MIL/uL (3.63-4.92); WHITE BLOOD COUNT (AUTO) 8.9 K/uL (3.8-11.8)
[2019-11-15 06:38] LABS: CREATININE 1.4 mg/dL (0.6-1.3); MAGNESIUM 1.8 mg/dL (1.8-2.4); PHOSPHOROUS 3.1 mg/dL (2.5-4.9); POTASSIUM 4.2 mmol/L (3.5-5.1)
[2019-11-15 07:43] LABS: ABG BASE EXCESS 11.2 mmol/L; ABG HCO3 36.7 mmol/L; ABG PCO2 54.6 mmHg (35.0-45.0); ABG PH 7.445 (7.350-7.450); ABG PO2 55.7 mmHg (75.0-100.0); ABG SITE LEFT RADIAL; MetHb 0.5 % (0.0-1.5); O2Hb 87.2 % (94.0-97.0); VENT MODE Nasal Cannula
[2019-11-15] MEDS ORDERED: IV D5 1/2 NS 1000 ML 1,000 ML IV ONE (08:45)
[2019-11-15] MEDS: methylPREDNISolone SOD SUCC 40 MG/ML VIAL IV SCH ×2 (09:37→20:28)
[2019-11-15] MEDS: FLUOXETINE HCL 20 MG CAPSULE NG SCH (09:37)
[2019-11-15] MEDS: ACETAzolamide SODIUM 500 MG VIAL IV SCH (09:37)
[2019-11-15] MEDS: AMLODIPINE 5 MG TABLET PO SCH ×2 (09:39→20:29)
[2019-11-15] MEDS: Z GUARD REMEDY PASTE 57 GM TUBE TOP SCH ×2 (09:40→20:29)
--- NOTE | 2019-11-15 11:30 | NUR ---
Doctor Kenia in the unit to see patient. new orders. please refer to order history
--- NOTE | 2019-11-15 12:30 | NUR ---
patient unable to follow instructions. In am dose difficult to follow instructions.
[2019-11-15] MEDS: hydrALAZINE HCL 25 MG TABLET PO PRN (13:48)
--- NOTE | 2019-11-15 19:30 | NUR ---
Received patient on COVID-19 isolation, S/P extubation yesterday and on 2 L NC O2. Saturations above 96%. Respirations regular non labored. Opens eyes to name, responds to questions by mumbling or moaning. Assessment completed. Turned and repositioned. HOB elevated above 30 degrees at all times. Addendum: 11/15/19 at 214 by KORIN LUCIANO RN Amended: Links added. Addendum: 11/15/19 at 214 by KORIN LUCIANO RN Amended: Links added. Addendum: 11/15/19 at 2141 by KORIN LUCIANO RN Amended: Links added. Addendum: 11/15/19 at 2141 by KORIN LUCIANO RN Amended: Links added. Addendum: 11/15/19 at 2141 by KORIN LUCIANO RN Amended: Links added. Addendum: 11/15/19 at 2142 by KORIN LUCIANO RN Amended: Links added. Addendum: 11/15/19 at 2143 by KORIN LUCIANO RN Amended: Links added. Addendum: 11/15/19 at 2144 by KORIN LUCIANO RN Amended: Links added. Addendum: 11/15/19 at 2143 by KORIN LUCIANO RN Amended: Links added. Addendum: 11/15/19 at 2143 by KORIN LUCIANO RN Amended: Links added. Addendum: 11/15/19 at 5 by KORIN TAECHARATKIJ RN Amended: Links added. Addendum: 11/15/19 at 2146 by KORIN LUCIANO RN Amended: Links added. Addendum: 11/15/19 at 2146 by KORIN LUCIANO RN Amended: Links added. Addendum: 11/15/19 at 2147 by KORIN LUCIANO RN Amended: Links added.
[2019-11-15] MEDS: ATORVASTATIN 20 MG TABLET NG SCH (20:28)
[2019-11-15] MEDS: BENZTROPINE MESYLATE 1 MG TABLET NG SCH (20:29)
[2019-11-16] VITALS (23 sets, daily range): BP systolic 109–154; BP diastolic 68–85
[2019-11-16] MEDS: ALBUTEROL SULFATE 8 GM HFA.AER.AD IH SCH ×7 (00:26→23:40)
[2019-11-16] MEDS: IPRATROPIUM BROMIDE 12.9 GM INHALER INH SCH ×7 (00:26→23:41)
[2019-11-16 05:09] LABS: BASOPHILS % (AUTO) 0.5 % (0.0-2.0); HEMATOCRIT 25.2 % (31.2-41.9); HEMOGLOBIN 7.9 g/dL (10.9-14.3); LYMPHOCYTES # (AUTO) 0.6 K/uL (20.0-40.0); LYMPHOCYTES % (AUTO) 6.3 % (20.5-51.5); MEAN CORPUSCULAR HEMOGLOBIN 27.9 uug (24.7-32.8); MEAN CORPUSCULAR HGB CONC 31 g/dL (32.3-35.6); MEAN CORPUSCULAR VOLUME 89.2 fL (75.5-95.3); MONOCYTES # (AUTO) 0.6 K/uL (2.0-10.0); MONOCYTES % (AUTO) 6.7 % (0.0-11.0); NEUTROPHILS # (AUTO) 8.2 K/uL (1.8-8.9); NEUTROPHILS % (AUTO) 86.5 % (38.5-71.5); PLATELET COUNT (AUTO) 253 K/uL (179-408); RED BLOOD CELL COUNT(AUTO) 2.83 MIL/uL (3.63-4.92); WHITE BLOOD COUNT (AUTO) 9.5 K/uL (3.8-11.8)
[2019-11-16 05:29] LABS: MAGNESIUM 1.8 mg/dL (1.8-2.4); PHOSPHOROUS 3.1 mg/dL (2.5-4.9)
[2019-11-16 05:51] LABS: BILIRUBIN,TOTAL 0.3 mg/dL (0.2-1.0); CREATININE 1.5 mg/dL (0.6-1.3); POTASSIUM 4.5 mmol/L (3.5-5.1); TOTAL PROTEIN, SERUM 6.4 g/dL (6.4-8.2)
--- NOTE | 2019-11-16 05:52 | NUR ---
Am care rendered. Patient tolerated care fairly well. Remains on O2 2 L NC; saturations above 94%. NGT feedings at 40 ml/H x 22H; off 2183-4915. No residuals. Addendum: 11/16/19 at 0558 by KORIN LUCIANO RN Amended: Links added.
[2019-11-16] MEDS: BLOOD SUGAR DIAGNOSTIC 1 EACH STRIP VI SCH ×4 (06:13→23:42)
[2019-11-16] MEDS: INSULIN REGULAR, HUMAN 300 UNIT/3 ML VIAL SQ PRN (06:16)
[2019-11-16 06:19] LABS: ABG BASE EXCESS 4.1 mmol/L; ABG HCO3 29.4 mmol/L; ABG PCO2 48.4 mmHg (35.0-45.0); ABG PH 7.401 (7.350-7.450); ABG PO2 82.4 mmHg (75.0-100.0); ABG SITE RIGHT RADIAL; ABG TOTAL HEMOGLOBIN 8.4 G/dL (12.0-16.0); MetHb 0.5 % (0.0-1.5); VENT MODE Nasal Cannula
--- NOTE | 2019-11-16 08:07 | NUR ---
Dr. Aquino here to see pt. Full report given. New orders received.
--- NOTE | 2019-11-16 08:25 | NUR ---
Dr. Herrera here to see pt. Full report given. New orders received.
[2019-11-16] MEDS: AMLODIPINE 5 MG TABLET PO SCH ×2 (08:32→20:24)
[2019-11-16] MEDS: methylPREDNISolone SOD SUCC 40 MG/ML VIAL IV SCH ×2 (08:32→20:23)
[2019-11-16] MEDS: ACETAzolamide SODIUM 500 MG VIAL IV SCH (08:32)
[2019-11-16] MEDS: Z GUARD REMEDY PASTE 57 GM TUBE TOP SCH ×2 (08:33→20:25)
[2019-11-16] MEDS: FLUOXETINE HCL 20 MG CAPSULE NG SCH (08:35)
[2019-11-16] MEDS ORDERED: GLUCERNA 1.2 1000ML LIQUID GT PRN ×2 (10:00→10:12)
--- NOTE | 2019-11-16 20:00 | NUR ---
RECEIVED PT. OPENS HER EYES TO VERBAL, APPEARS LETHARGIC. ON O2 @ 2L NC W/ O2 SAT OF 98%. NGT ON R NARE, CHECKED PLACEMENT & CHECKED RESIDUAL NONE NOTED.ON TUBE FDG OF GLUCERNA 1.2 @ 40CC/HR. NS @ 5CC/HR VIA TLC ON RIJ OTHER PORTS ARE PATENT. REPOSITIONED W/ HOB ELEVATED.
[2019-11-16] MEDS: BENZTROPINE MESYLATE 1 MG TABLET NG SCH (20:23)
[2019-11-16] MEDS: ATORVASTATIN 20 MG TABLET NG SCH (20:23)
[2019-11-17] VITALS (12 sets, daily range): BP systolic 113–160; BP diastolic 71–92
--- NOTE | 2019-11-17 | NUR ---
CHECKED NGT RESIDUAL OBTAINED 120CC, HOLD FDG. WILL RECHECKED RESIDUAL AFTER 2 HRS. REPOSITIONED PT. W/ HOB ELEVATED.
--- NOTE | 2019-11-17 02:00 | NUR ---
CONTINUE TO HOLD TUBE FDG, RESIDUAL STILL 100CC.
[2019-11-17] MEDS: IPRATROPIUM BROMIDE 12.9 GM INHALER INH SCH ×6 (03:26→23:23)
[2019-11-17] MEDS: ALBUTEROL SULFATE 8 GM HFA.AER.AD IH SCH ×6 (03:26→23:22)
[2019-11-17] MEDS: hydrALAZINE HCL 25 MG TABLET PO PRN (03:36)
--- NOTE | 2019-11-17 04:00 | NUR ---
AM CARE DONE. ORAL CARE DONE. SUCTIONED ORALLY W/ MINIMAL WHITISH THIN MUCOUS. IRRIGATED FLEXISEAL. NGT RESIDUAL 60CC NOTED CONTINUE TO HOLD TUBE FDG. REPOSITIONED W/ HOB ELEVATED.
[2019-11-17] MEDS: IV NORMAL SALINE 250 ML IV PRN (04:58)
[2019-11-17 05:15] LABS: HEMATOCRIT 25.5 % (31.2-41.9); HEMOGLOBIN 8.1 g/dL (10.9-14.3); LYMPHOCYTES # (AUTO) 0.7 K/uL (20.0-40.0); LYMPHOCYTES % (AUTO) 6.6 % (20.5-51.5); MEAN CORPUSCULAR HEMOGLOBIN 28.4 uug (24.7-32.8); MEAN CORPUSCULAR HGB CONC 32 g/dL (32.3-35.6); MONOCYTES # (AUTO) 0.6 K/uL (2.0-10.0); MONOCYTES % (AUTO) 5.7 % (0.0-11.0); NEUTROPHILS # (AUTO) 9.6 K/uL (1.8-8.9); NEUTROPHILS % (AUTO) 87.7 % (38.5-71.5); PLATELET COUNT (AUTO) 285 K/uL (179-408); RED BLOOD CELL COUNT(AUTO) 2.87 MIL/uL (3.63-4.92); WHITE BLOOD COUNT (AUTO) 10.9 K/uL (3.8-11.8)
[2019-11-17] MEDS: BLOOD SUGAR DIAGNOSTIC 1 EACH STRIP VI SCH ×3 (05:18→17:57)
[2019-11-17 05:22] LABS: CREATININE 1.5 mg/dL (0.6-1.3); MAGNESIUM 1.7 mg/dL (1.8-2.4); PHOSPHOROUS 3.4 mg/dL (2.5-4.9); POTASSIUM 4.4 mmol/L (3.5-5.1)
--- NOTE | 2019-11-17 06:00 | NUR ---
OFF TUBE FDG. CXR DONE.
[2019-11-17] MEDS: AMLODIPINE 5 MG TABLET PO SCH ×2 (07:40→20:38)
[2019-11-17] MEDS: methylPREDNISolone SOD SUCC 40 MG/ML VIAL IV SCH ×2 (07:40→20:37)
[2019-11-17] MEDS: ACETAzolamide SODIUM 500 MG VIAL IV SCH (07:40)
[2019-11-17] MEDS: Z GUARD REMEDY PASTE 57 GM TUBE TOP SCH ×2 (07:42→20:39)
[2019-11-17] MEDS: FLUOXETINE HCL 20 MG CAPSULE NG SCH (07:43)
--- NOTE | 2019-11-17 08:24 | NUR ---
JAY Horvath here to see pt. Full report given. New orders received. okay to downgrade to pt to telemetry status.
[2019-11-17 08:25] LABS: ABG BASE EXCESS 3.2 mmol/L; ABG HCO3 29.4 mmol/L; ABG PCO2 53.4 mmHg (35.0-45.0); ABG PH 7.358 (7.350-7.450); ABG PO2 61.5 mmHg (75.0-100.0); ABG SITE LEFT RADIAL; ABG TOTAL HEMOGLOBIN 9.5 G/dL (12.0-16.0); COHb 0.7 % (0.5-1.5); MetHb 0.3 % (0.0-1.5); O2Hb 90.3 % (94.0-97.0); VENT MODE Nasal Cannula
[2019-11-17] MEDS ORDERED: MAGNESIUM SULFATE/D5W 100 ML IV SCH (08:30)
[2019-11-17] MEDS: METOCLOPRAMIDE HCL 10 MG/2 ML VIAL IV SCH ×3 (09:05→21:39)
--- NOTE | 2019-11-17 09:48 | NUR ---
Dr. Herrera here to see pt. Full report given. New orders received.
[2019-11-17] MEDS ORDERED: ALBUTEROL SULFATE 8 GM HFA.AER.AD IH PRN (16:15)
[2019-11-17] MEDS ORDERED: IPRATROPIUM BROMIDE 12.9 GM INHALER INH PRN (16:30)
--- NOTE | 2019-11-17 20:00 | NUR ---
RECEIVED PT OPEN HER EYES TO VERBAL STIMULI, REMAINS LETHARGIC. ON O2 @2LNC W/ O2 SAT OF 98%. NGT ON R NARE, CHECKED PLACEMENT & CHECKED RESIDUAL 5CC NOTED, INCREASED RATE TO 30CC/HR. NS @ 5CC/HR VIA TLC ON RIJ, ALL PORT ARE PATENT. REPOSITIONED W/ HOB ELEVATED.
[2019-11-17] MEDS: BENZTROPINE MESYLATE 1 MG TABLET NG SCH (20:37)
[2019-11-17] MEDS: ATORVASTATIN 20 MG TABLET NG SCH (20:38)
--- NOTE | 2019-11-17 23:00 | NUR ---
HS CARE DONE. REPOSITIONED W/ HOB ELEVATED.
[2019-11-18] VITALS (9 sets, daily range): BP systolic 110–146; BP diastolic 64–80
[2019-11-18] MEDS: BLOOD SUGAR DIAGNOSTIC 1 EACH STRIP VI SCH ×5 (00:37→23:29)
[2019-11-18] MEDS: ALBUTEROL SULFATE 8 GM HFA.AER.AD IH SCH ×6 (04:06→23:30)
[2019-11-18] MEDS: IPRATROPIUM BROMIDE 12.9 GM INHALER INH SCH ×6 (04:07→23:30)
--- NOTE | 2019-11-18 05:00 | NUR ---
AM CARE DONE. ORAL CARE DONE. REPOSITIONED ON HER SIDE W/ HOB ELEVATED.
[2019-11-18 05:10] LABS: BASOPHILS % (AUTO) 0.2 % (0.0-2.0); HEMATOCRIT 25.8 % (31.2-41.9); HEMOGLOBIN 8.4 g/dL (10.9-14.3); LYMPHOCYTES # (AUTO) 0.7 K/uL (20.0-40.0); LYMPHOCYTES % (AUTO) 6.6 % (20.5-51.5); MEAN CORPUSCULAR HEMOGLOBIN 28.6 uug (24.7-32.8); MEAN CORPUSCULAR HGB CONC 32 g/dL (32.3-35.6); MEAN CORPUSCULAR VOLUME 88.4 fL (75.5-95.3); MONOCYTES # (AUTO) 0.4 K/uL (2.0-10.0); MONOCYTES % (AUTO) 4.1 % (0.0-11.0); NEUTROPHILS # (AUTO) 9.3 K/uL (1.8-8.9); NEUTROPHILS % (AUTO) 89.1 % (38.5-71.5); PLATELET COUNT (AUTO) 261 K/uL (179-408); RED BLOOD CELL COUNT(AUTO) 2.92 MIL/uL (3.63-4.92); WHITE BLOOD COUNT (AUTO) 10.5 K/uL (3.8-11.8)
[2019-11-18 05:20] LABS: CREATININE 1.5 mg/dL (0.6-1.3); MAGNESIUM 1.9 mg/dL (1.8-2.4); PHOSPHOROUS 3.5 mg/dL (2.5-4.9); POTASSIUM 4.2 mmol/L (3.5-5.1)
[2019-11-18] MEDS: METOCLOPRAMIDE HCL 10 MG/2 ML VIAL IV SCH ×3 (05:45→21:19)
[2019-11-18] MEDS: IV NORMAL SALINE 250 ML IV PRN (05:47)
--- NOTE | 2019-11-18 06:05 | NUR ---
OFF TUBE FDG , WILL RESUME @ 0800 @ 40CC/HR.
[2019-11-18] MEDS: methylPREDNISolone SOD SUCC 40 MG/ML VIAL IV SCH ×2 (08:11→20:31)
[2019-11-18] MEDS: AMLODIPINE 5 MG TABLET PO SCH ×2 (08:13→20:31)
[2019-11-18] MEDS: FLUOXETINE HCL 20 MG CAPSULE NG SCH (08:14)
[2019-11-18] MEDS: Z GUARD REMEDY PASTE 57 GM TUBE TOP SCH ×2 (08:15→20:32)
[2019-11-18] MEDS: HEPARIN SODIUM,PORCINE 5,000 UNITS/ML VIAL SQ SCH ×2 (09:15→20:35)
--- NOTE | 2019-11-18 09:31 | NUR ---
PATIENT UNABLE TO FOLLOW COMMANDS AND UNABLE TO RECEIVED BT.
[2019-11-18] MEDS: hydrALAZINE HCL 25 MG TABLET PO PRN (10:38)
[2019-11-18 12:06] LABS: CALCITRIOL VIT D,1,25 DIHYDROX 23.4 pg/mL (19.9-79.3)
[2019-11-18] MEDS: INSULIN REGULAR, HUMAN 300 UNIT/3 ML VIAL SQ PRN (12:20)
--- NOTE | 2019-11-18 19:30 | NUR ---
Received patient on COVID 19 isolation, awake, non verbal. NAD noted. S/P extubation 11/13; on 2L NC O2. Saturations above 94%. Addendum: 11/18/19 at 2327 by KORIN LUCIANO RN Amended: Links added. Addendum: 11/18/19 at 2328 by KORIN LUCIANO RN Amended: Links added. Addendum: 11/19/19 at 0002 by KORIN TAECHARATKIJ RN Amended: Links added. Addendum: 11/19/19 at 0002 by KORIN LUCIANO RN Amended: Links added. Addendum: 11/19/19 at 0003 by KORIN LUCIANO RN Amended: Links added. Addendum: 11/19/19 at 0003 by KORIN LUCIANO RN Amended: Links added. Addendum: 11/19/19 at 0003 by KORIN LUCIANO RN Amended: Links added. Addendum: 11/19/19 at 0004 by KORIN LUCIANO RN Amended: Links added. Addendum: 11/19/19 at 0004 by KORIN LUCIANO RN Amended: Marlon added. Addendum: 11/19/19 at 0004 by KORIN LUCIANO RN Amended: Marlon added. Addendum: 11/19/19 at 0004 by KORIN LUCIANO RN Amended: Links added. Addendum: 11/19/19 at 0005 by KORIN LUCIANO RN Amended: Links added.
[2019-11-18] MEDS: BENZTROPINE MESYLATE 1 MG TABLET NG SCH (20:31)
[2019-11-18] MEDS: ATORVASTATIN 20 MG TABLET NG SCH (20:31)
--- NOTE | 2019-11-18 23:28 | NUR ---
Turned and repositioned Q2H. Skin care provided. NGT feedings at 40 ml/H; tolerated well. No residuals. Addendum: 11/18/19 at 2328 by KORIN LUCIANO RN Amended: Links added. Addendum: 11/19/19 at 0002 by KORIN LUCIANO RN Amended: Links added. Addendum: 11/19/19 at 0002 by KORIN LUCIANO RN Amended: Links added. Addendum: 11/19/19 at 0003 by KORIN LUCIANO RN Amended: Links added. Addendum: 11/19/19 at 0003 by KORIN LUCIANO RN Amended: Links added. Addendum: 11/19/19 at 0003 by KORIN LUCIANO RN Amended: Links added. Addendum: 11/19/19 at 0004 by KORIN LUCIANO RN Amended: Links added. Addendum: 11/19/19 at 0004 by KORIN LUCIANO RN Amended: Links added. Addendum: 11/19/19 at 0004 by KORIN LUCIANO RN Amended: Links added. Addendum: 11/19/19 at 0004 by KORIN LUCIANO RN Amended: Links added. Addendum: 11/19/19 at 0005 by KORIN LUCIANO RN Amended: Links added.
[2019-11-19] VITALS: BP 102/66
[2019-11-19 02:00] VITALS: BP 103/63
[2019-11-19] MEDS: IPRATROPIUM BROMIDE 12.9 GM INHALER INH SCH ×6 (03:30→23:10)
[2019-11-19] MEDS: ALBUTEROL SULFATE 8 GM HFA.AER.AD IH SCH ×6 (03:30→23:10)
[2019-11-19 06:00] LABS: BASOPHILS % (AUTO) 0.2 % (0.0-2.0); HEMATOCRIT 27.4 % (31.2-41.9); HEMOGLOBIN 8.9 g/dL (10.9-14.3); LYMPHOCYTES # (AUTO) 0.6 K/uL (20.0-40.0); LYMPHOCYTES % (AUTO) 5.7 % (20.5-51.5); MEAN CORPUSCULAR HEMOGLOBIN 28.8 uug (24.7-32.8); MEAN CORPUSCULAR HGB CONC 33 g/dL (32.3-35.6); MEAN CORPUSCULAR VOLUME 88.5 fL (75.5-95.3); MONOCYTES # (AUTO) 0.4 K/uL (2.0-10.0); MONOCYTES % (AUTO) 3.8 % (0.0-11.0); NEUTROPHILS # (AUTO) 9.2 K/uL (1.8-8.9); NEUTROPHILS % (AUTO) 90.3 % (38.5-71.5); PLATELET COUNT (AUTO) 267 K/uL (179-408); WHITE BLOOD COUNT (AUTO) 10.2 K/uL (3.8-11.8)
[2019-11-19 06:00] LABS: BILIRUBIN,TOTAL 0.4 mg/dL (0.2-1.0); CREATININE 1.4 mg/dL (0.6-1.3); MAGNESIUM 1.8 mg/dL (1.8-2.4); PHOSPHOROUS 3.4 mg/dL (2.5-4.9); POTASSIUM 4.1 mmol/L (3.5-5.1); TOTAL PROTEIN, SERUM 7.3 g/dL (6.4-8.2)
[2019-11-19] MEDS: METOCLOPRAMIDE HCL 10 MG/2 ML VIAL IV SCH ×3 (06:00→21:34)
[2019-11-19] MEDS: BLOOD SUGAR DIAGNOSTIC 1 EACH STRIP VI SCH ×3 (06:00→18:33)
[2019-11-19 08:00] VITALS: BP 132/77
--- NOTE | 2019-11-19 08:00 | NUR ---
Leonard rounding on patient informed failed swallow eval.
[2019-11-19] MEDS: Z GUARD REMEDY PASTE 57 GM TUBE TOP SCH ×2 (08:55→20:35)
[2019-11-19] MEDS: FLUOXETINE HCL 20 MG CAPSULE NG SCH (09:18)
[2019-11-19] MEDS: AMLODIPINE 5 MG TABLET PO SCH ×2 (09:25→20:32)
[2019-11-19] MEDS: HEPARIN SODIUM,PORCINE 5,000 UNITS/ML VIAL SQ SCH ×2 (09:26→20:34)
--- NOTE | 2019-11-19 09:43 | NUR ---
Doctor early in the unit to see patient. no new orders at this time
[2019-11-19 12:00] VITALS: BP 120/71
[2019-11-19] MEDS: INSULIN REGULAR, HUMAN 300 UNIT/3 ML VIAL SQ PRN ×2 (13:08→19:07)
[2019-11-19] MEDS: ACETAMINOPHEN 325 MG TABLET PO PRN (15:31)
[2019-11-19 16:00] VITALS: BP 123/66
[2019-11-19 20:00] VITALS: BP 130/73
--- NOTE | 2019-11-19 20:00 | NUR ---
RECEIVED PT OPENS HER EYES TO VERBAL STIMULI, NONVERBALLY RESPONSIVE & NOT FOLLOWING TO SIMPLE COMMAND. ON O2 @ 2LNC W/ O2 SAT OF 98%. NGT ON R NARE, CHECKED PLACEMENT & CHECKED RESIDUAL 30CC NOTED. TLC ON RIJ INTACT & ALL PORTS ARE PATENT. CLEANED PT, INCONT. OF LIQUIDISH GREENISH STOOL. REPOSITIONED W/ HOB ELEVATED.
[2019-11-19] MEDS: ATORVASTATIN 20 MG TABLET NG SCH (20:32)
[2019-11-19] MEDS: BENZTROPINE MESYLATE 1 MG TABLET NG SCH (20:32)
--- NOTE | 2019-11-19 23:50 | NUR ---
HS CARE DONE. CLEANED OF INCONT. STOOL. REPOSITIONED W/ HOB ELEVATED.
[2019-11-20] VITALS (7 sets, daily range): BP systolic 120–157; BP diastolic 60–92
[2019-11-20] MEDS: BLOOD SUGAR DIAGNOSTIC 1 EACH STRIP VI SCH ×4 (00:17→23:59)
[2019-11-20] MEDS: INSULIN REGULAR, HUMAN 300 UNIT/3 ML VIAL SQ PRN ×2 (00:18→13:55)
[2019-11-20] MEDS: ALBUTEROL SULFATE 8 GM HFA.AER.AD IH SCH ×5 (03:05→21:06)
[2019-11-20] MEDS: IPRATROPIUM BROMIDE 12.9 GM INHALER INH SCH ×5 (03:05→21:05)
[2019-11-20 04:58] LABS: BASOPHILS % (AUTO) 0.3 % (0.0-2.0); HEMATOCRIT 26.8 % (31.2-41.9); HEMOGLOBIN 8.8 g/dL (10.9-14.3); LYMPHOCYTES # (AUTO) 0.8 K/uL (20.0-40.0); LYMPHOCYTES % (AUTO) 7.9 % (20.5-51.5); MEAN CORPUSCULAR HEMOGLOBIN 28.8 uug (24.7-32.8); MEAN CORPUSCULAR HGB CONC 33 g/dL (32.3-35.6); MEAN CORPUSCULAR VOLUME 88.2 fL (75.5-95.3); MONOCYTES % (AUTO) 9.8 % (0.0-11.0); NEUTROPHILS # (AUTO) 8.7 K/uL (1.8-8.9); PLATELET COUNT (AUTO) 235 K/uL (179-408); RED BLOOD CELL COUNT(AUTO) 3.04 MIL/uL (3.63-4.92); WHITE BLOOD COUNT (AUTO) 10.6 K/uL (3.8-11.8)
--- NOTE | 2019-11-20 05:00 | NUR ---
AM CARE DONE. ORAL CARE DONE. INCONT. OF STOOL.
[2019-11-20 05:03] LABS: CREATININE 1.2 mg/dL (0.6-1.3)
[2019-11-20] MEDS: hydrALAZINE HCL 25 MG TABLET PO PRN (05:46)
[2019-11-20] MEDS: METOCLOPRAMIDE HCL 10 MG/2 ML VIAL IV SCH ×3 (05:46→21:13)
--- NOTE | 2019-11-20 05:49 | NUR ---
REPOSITIONED ON HER R SIDE W/ HOB ELEVATED. OFF TUBE FDG. WILL RESUME AT 0800.
[2019-11-20] MEDS: methylPREDNISolone SOD SUCC 40 MG/ML VIAL IV SCH (08:28)
[2019-11-20] MEDS: FLUOXETINE HCL 20 MG CAPSULE NG SCH (08:29)
[2019-11-20] MEDS: Z GUARD REMEDY PASTE 57 GM TUBE TOP SCH ×2 (08:29→20:27)
[2019-11-20] MEDS: AMLODIPINE 5 MG TABLET PO SCH ×2 (08:29→20:30)
[2019-11-20] MEDS: HEPARIN SODIUM,PORCINE 5,000 UNITS/ML VIAL SQ SCH ×2 (08:31→20:28)
--- NOTE | 2019-11-20 08:45 | NUR ---
Leonard in the unit. informed that patient is still with NGT and would require GT placement with failed swallow test and placement for long-term .
--- NOTE | 2019-11-20 09:30 | NUR ---
Patient had PT eval done. Patient was able to sit at bedside with full 2 person assist.
--- NOTE | 2019-11-20 13:45 | NUR ---
ayo speech therapist in the unit to see patient. states patient swallow continues to be very slow but it can be started on liquid diet and monitor. can continue on feeding for now until oral intake tolerance.
--- NOTE | 2019-11-20 19:15 | NUR ---
RECEIVED PATIENT AWAKE , NON VERBAL , UNABLE TO FOLLOW COMMAND AT THIS TIME ON 0.5 L NC , FEEDING VIA NGT AT 40 ML , , PLACEMENT CHECKED AND VERIFIED AND FLUSHED , CENTRAL LINE TIGHT IJ INTACT
[2019-11-20] MEDS: BENZTROPINE MESYLATE 1 MG TABLET NG SCH (20:26)
[2019-11-20] MEDS: ATORVASTATIN 20 MG TABLET NG SCH (20:26)
--- NOTE | 2019-11-20 22:17 | NUR ---
ALBUTEROL AND VENTOLIN TREATMENT ARE BEING GIVEN , AND PATIENT IS ON NC 1 L , TOLERATING WELL , LOC AND BREATHING BEING MONITORED Addendum: 11/20/19 at 2217 by JOSE RAMON PEACOCK RN Amended: Links added. Addendum: 11/20/19 at 2219 by JOSE RAMON PEACOCK RN Amended: Links sina.
--- NOTE | 2019-11-20 22:19 | NUR ---
LAB LEVELS BEING MONITORED , NO FEVER AND WILL BE ABLE MAINTAIN ACCEPTABLE LEVEL OF WBC , AND WILL NOT DEVELOP FEVER DURING REMAINING DAYS OF HOSPITALIZATION Addendum: 11/20/19 at 2219 by JOSE RAMON PEACOCK RN Amended: Links added.
--- NOTE | 2019-11-20 22:20 | NUR ---
WILL BE ABLE TO MAINTAIN FREE FROM PAIN DURING HOSPITALIZTION , NO MOANING , NO CRYING , AND DISPOSITION WILL BE RELAXED Addendum: 11/20/19 at 2220 by JOSE RAMON PEACOCK RN Amended: Links added.
--- NOTE | 2019-11-20 22:21 | NUR ---
SIDERAILS UP , BED IN LOW POSITION , CLOSE MONITORING Addendum: 11/20/19 at 2221 by JOSE RAMON PEACOCK RN Amended: Links added.
[2019-11-21] VITALS: BP 144/94
--- NOTE | 2019-11-21 01:32 | NUR ---
patient was transferred to [facility] , accompanied by a nurse with transport monitor , report given to haley leblanc , procedures and labs done ,
--- NOTE | 2019-11-21 01:32 | NUR ---
Patient transferred into care of this nurse from [facility]U via [facility] to room 324. Patient is alert/oriented x1 but unable to verbalize needs. Patient as no s/s of acute distress or discomfort noted or observed by this nurse. Restarted NGT feeding of glucerna 1.2 @ 40mL/hr x 22hr. Less than 20mL residual when received into care. Garcia Cath in place and draining well with light yellow urine. Oxygen via NC at 1.5L/min with a saturation of 98%, will titrate back down to 1.0L/min at 0400h. Suctioning equipment in place. Patient is warm, dry, and comfortable. Will continue to monitor and assess.
[2019-11-21] MEDS: ACETAMINOPHEN 650 MG/20.3 ML LIQUID UDC NG PRN (05:01)
[2019-11-21] MEDS: METOCLOPRAMIDE HCL 10 MG/2 ML VIAL IV SCH ×3 (05:02→22:00)
[2019-11-21 05:23] VITALS: BP 143/64
[2019-11-21] MEDS: BLOOD SUGAR DIAGNOSTIC 1 EACH STRIP VI SCH ×3 (05:37→16:50)
--- NOTE | 2019-11-21 06:00 | NUR ---
Patient slept well after transfer to this unit with no s/s of acute distress or discomfort noted or observed by this nurse. All prescribed medications provided as ordered and tolerated well, with no adverse side effects noted/observed by this nurse. NGT feeding tolerated well with less than 25mL/residual. Garcia cath is in place and urine is flowing freely into collection bag. All safety, allergy, fall, and isolation precautions remain in place. Call light and personal items remain within reach.
[2019-11-21 06:40] LABS: BASOPHILS % (AUTO) 0.2 % (0.0-2.0); EOSINOPHILS % (AUTO) 0.1 % (0.0-7.0); HEMOGLOBIN 8.8 g/dL (10.9-14.3); LYMPHOCYTES # (AUTO) 1.1 K/uL (20.0-40.0); LYMPHOCYTES % (AUTO) 11.6 % (20.5-51.5); MEAN CORPUSCULAR HGB CONC 33 g/dL (32.3-35.6); MEAN CORPUSCULAR VOLUME 88.6 fL (75.5-95.3); MONOCYTES # (AUTO) 0.9 K/uL (2.0-10.0); MONOCYTES % (AUTO) 10.1 % (0.0-11.0); NEUTROPHILS # (AUTO) 7.1 K/uL (1.8-8.9); PLATELET COUNT (AUTO) 222 K/uL (179-408); RED BLOOD CELL COUNT(AUTO) 3.04 MIL/uL (3.63-4.92); WHITE BLOOD COUNT (AUTO) 9.1 K/uL (3.8-11.8)
[2019-11-21 06:49] LABS: CREATININE 1.3 mg/dL (0.6-1.3); POTASSIUM 3.8 mmol/L (3.5-5.1)
--- NOTE | 2019-11-21 08:00 | NUR ---
on bed, resting , denies discomfort. no distress noted. started ngt feeding as ordered.
[2019-11-21] MEDS: HEPARIN SODIUM,PORCINE 5,000 UNITS/ML VIAL SQ SCH ×2 (08:39→22:00)
[2019-11-21] MEDS: methylPREDNISolone SOD SUCC 40 MG/ML VIAL IV SCH (09:26)
[2019-11-21] MEDS: FLUOXETINE HCL 20 MG CAPSULE NG SCH (09:27)
[2019-11-21] MEDS: Z GUARD REMEDY PASTE 57 GM TUBE TOP SCH ×2 (09:28→22:05)
[2019-11-21] MEDS: AMLODIPINE 5 MG TABLET PO SCH ×2 (09:28→22:04)
--- NOTE | 2019-11-21 09:30 | NUR ---
has large bm, soft to liquid, good pericare provided, reposition to right side with pillow support. made comfortable.
--- NOTE | 2019-11-21 12:00 | NUR ---
ngt out, will started diet order per dietary.
[2019-11-21] MEDS: INSULIN REGULAR, HUMAN 300 UNIT/3 ML VIAL SQ PRN ×2 (12:03→17:14)
[2019-11-21] MEDS: Z GUARD REMEDY PASTE 57 GM TUBE TOP PRN (12:05)
--- NOTE | 2019-11-21 12:08 | NUR ---
dr early in, aware of o2 sat 96 at 1l, will continue to titrate to room air as tolerated
--- NOTE | 2019-11-21 12:20 | NUR ---
Leonard , senior principal architect aware of ngt out, agreed to monitor patient for now. encourage patient to eat, spits food for now, will enc to eat drink prn.
[2019-11-21 12:51] VITALS: BP 128/83
--- NOTE | 2019-11-21 14:30 | NUR ---
patietn resting well. prn cough , dry
[2019-11-21 14:47] VITALS: BP 128/83
--- NOTE | 2019-11-21 16:00 | NUR ---
dr garnica in ,aware patient no ngt, only will take sips of water. will continue to monitor especially with med intake.
--- NOTE | 2019-11-21 18:11 | NUR ---
repositioned q 2 hours. kept clean and dry. no acute respiratory distress . o2 .5 l sat 94 %. last temp 98.8
[2019-11-21] MEDS: IPRATROPIUM BROMIDE 12.9 GM INHALER INH SCH (19:30)
[2019-11-21] MEDS: ALBUTEROL SULFATE 8 GM HFA.AER.AD IH SCH (19:30)
[2019-11-21 20:47] VITALS: BP 138/70
[2019-11-21] MEDS: ATORVASTATIN 20 MG TABLET NG SCH (22:04)
[2019-11-21] MEDS: BENZTROPINE MESYLATE 1 MG TABLET NG SCH (22:04)
[2019-11-22 00:19] VITALS: BP 125/74
[2019-11-22] MEDS: BLOOD SUGAR DIAGNOSTIC 1 EACH STRIP VI SCH ×4 (01:30→18:18)
[2019-11-22 05:37] VITALS: BP 143/89
[2019-11-22] MEDS: METOCLOPRAMIDE HCL 10 MG/2 ML VIAL IV SCH ×3 (06:11→21:08)
[2019-11-22 06:13] LABS: BASOPHILS % (AUTO) 0.2 % (0.0-2.0); CREATININE 1.3 mg/dL (0.6-1.3); EOSINOPHILS % (AUTO) 0.1 % (0.0-7.0); HEMATOCRIT 27.7 % (31.2-41.9); HEMOGLOBIN 9.1 g/dL (10.9-14.3); LYMPHOCYTES # (AUTO) 1.2 K/uL (20.0-40.0); LYMPHOCYTES % (AUTO) 13.3 % (20.5-51.5); MAGNESIUM 1.5 mg/dL (1.8-2.4); MEAN CORPUSCULAR HGB CONC 33 g/dL (32.3-35.6); MEAN CORPUSCULAR VOLUME 88.5 fL (75.5-95.3); MONOCYTES % (AUTO) 11.1 % (0.0-11.0); NEUTROPHILS # (AUTO) 6.7 K/uL (1.8-8.9); NEUTROPHILS % (AUTO) 75.3 % (38.5-71.5); PHOSPHOROUS 2.5 mg/dL (2.5-4.9); PLATELET COUNT (AUTO) 202 K/uL (179-408); POTASSIUM 3.8 mmol/L (3.5-5.1); RED BLOOD CELL COUNT(AUTO) 3.14 MIL/uL (3.63-4.92)
--- NOTE | 2019-11-22 06:57 | NUR ---
patient did not sleep at night, no vomiting noted. Minimal PO intake. Urine output is decreasing to 150 ml since midnight. Patients IJ line dressing was changed using sterile technique, 1 lumen is non-functional since the beginning of the shift. Access hubs were replaced.
[2019-11-22] MEDS: IPRATROPIUM BROMIDE 12.9 GM INHALER INH SCH ×4 (07:35→19:30)
[2019-11-22] MEDS: ALBUTEROL SULFATE 8 GM HFA.AER.AD IH SCH ×4 (07:35→19:30)
[2019-11-22 08:00] VITALS: BP 132/83
--- NOTE | 2019-11-22 08:00 | NUR ---
Received pt in bed asleep but arousable to name and touch. Pt's speech is unclear and garbled, but able to say "yes baby" when asked if she's okay. O2 @ 0.5L saturating 94%, with no SOB or distress noted at this time. Right IJ [address], 2 lumens flushed and patent, 1 lumen not patent per PM shift nurse. Garcia catheter in place draining clear liquid urine. DVT pumps in place. Pt on air mattress. Bed locked in lowest position with siderails 3x up. Will monitor
[2019-11-22] MEDS ORDERED: IV NS 1000 ML 1,000 ML IV ONE (09:15)
[2019-11-22] MEDS: AMLODIPINE 5 MG TABLET PO SCH ×2 (09:26→21:07)
[2019-11-22] MEDS: FLUOXETINE HCL 20 MG CAPSULE NG SCH (09:27)
[2019-11-22] MEDS: HEPARIN SODIUM,PORCINE 5,000 UNITS/ML VIAL SQ SCH ×2 (09:28→21:13)
[2019-11-22] MEDS: Z GUARD REMEDY PASTE 57 GM TUBE TOP SCH ×2 (09:35→21:07)
--- NOTE | 2019-11-22 10:00 | NUR ---
Dr. Christine wanted to check O2 sat on room air. Pt saturated 89% on RA, Dr. Herrera made aware. Goal is 88-92%
[2019-11-22] MEDS: methylPREDNISolone SOD SUCC 40 MG/ML VIAL IV SCH (10:01)
[2019-11-22] MEDS: MAGNESIUM SULFATE/D5W 100 ML IV SCH ×2 (10:02→11:36)
[2019-11-22 11:49] VITALS: BP 128/82
--- NOTE | 2019-11-22 13:00 | NUR ---
Pt's saturation on RA decreased to 84-85% and HR increased to 114. Monitored and no changes. Replaced on O2 @ 0.5L saturating 90% and HR decreased to 104.
--- NOTE | 2019-11-22 15:33 | NUR ---
Patient has been refusing inhaler medications. She pushes inhaler out with her tongue. Educated and instructed on how to do it, unable to comprehend.
[2019-11-22 16:09] VITALS: BP 135/78
[2019-11-22] MEDS: INSULIN REGULAR, HUMAN 300 UNIT/3 ML VIAL SQ PRN (18:19)
--- NOTE | 2019-11-22 18:31 | NUR ---
Pt tried to get out of bed, reinforced teaching, unable to comprehend. O2 @ 2L sat 97%. Per Dr. Herrera O2 saturation goal 88-92%. Placed on RA saturating 90-91% when awake, 88-89% when asleep. Kept on RA for now. No SOB or distress noted at this time. Will endorse to next shift.
--- NOTE | 2019-11-22 19:30 | NUR ---
RECEIVED PT IN NO ACUTE DISTRESS. IV INTACT.EPSTEIN CATHETER INTACT AND DRAINING YELLOW COLORED URINE. . SAFETY AND COMFORT PROVIDED.WILL CONTINUE TO MONITOR.
[2019-11-22 20:34] VITALS: BP 130/75
[2019-11-22] MEDS: ATORVASTATIN 20 MG TABLET NG SCH (21:06)
[2019-11-22] MEDS: BENZTROPINE MESYLATE 1 MG TABLET NG SCH (21:06)
[2019-11-22] MEDS: ACETAMINOPHEN 325 MG TABLET PO PRN (21:07)
[2019-11-23] MEDS: BLOOD SUGAR DIAGNOSTIC 1 EACH STRIP VI SCH ×5 (00:04→23:45)
[2019-11-23 00:34] VITALS: BP 147/84
[2019-11-23] MEDS: METOCLOPRAMIDE HCL 10 MG/2 ML VIAL IV SCH ×3 (05:10→21:10)
[2019-11-23] MEDS: ACETAMINOPHEN 325 MG TABLET PO PRN ×2 (05:17→20:32)
[2019-11-23] MEDS: hydrALAZINE HCL 25 MG TABLET PO PRN (05:17)
[2019-11-23 05:54] VITALS: BP 154/97
--- NOTE | 2019-11-23 06:17 | NUR ---
PT SLEPT INTERMITTENTLY. PT IN NO ACUTE DISTRESS. IV INTACT. EPSTEIN CATHETER DWELLING WELL. SAFETY AND COMFORT PROVIDED. PRESCRIBED MEDICATION GIVEN AND PT TOLERATED IT WELL.PT GIVEN HYDRALAZINE FOR BP 154/97. PT NOW HAS WITHIN NORMAL LIMIT VITAL SIGN OF 142/60. PT TURNED AND REPOSITIONED. PT OBSERVED NO ABRASION ON LEFT ARM. ALL NEEDS ARE MET. WILL ENDORSE TO INCOMING NURSE FOR CONTINUITY OF CARE.
[2019-11-23 06:18] LABS: BASOPHILS % (AUTO) 0.2 % (0.0-2.0); EOSINOPHILS % (AUTO) 0.3 % (0.0-7.0); HEMATOCRIT 27.9 % (31.2-41.9); LYMPHOCYTES % (AUTO) 12.2 % (20.5-51.5); MEAN CORPUSCULAR HEMOGLOBIN 28.8 uug (24.7-32.8); MEAN CORPUSCULAR HGB CONC 32 g/dL (32.3-35.6); MEAN CORPUSCULAR VOLUME 89.1 fL (75.5-95.3); MONOCYTES # (AUTO) 0.8 K/uL (2.0-10.0); MONOCYTES % (AUTO) 10.1 % (0.0-11.0); NEUTROPHILS # (AUTO) 6.4 K/uL (1.8-8.9); NEUTROPHILS % (AUTO) 77.2 % (38.5-71.5); PLATELET COUNT (AUTO) 191 K/uL (179-408); RED BLOOD CELL COUNT(AUTO) 3.14 MIL/uL (3.63-4.92); WHITE BLOOD COUNT (AUTO) 8.3 K/uL (3.8-11.8)
[2019-11-23 06:21] VITALS: BP 142/60
[2019-11-23 06:36] LABS: CREATININE 1.2 mg/dL (0.6-1.3); MAGNESIUM 1.9 mg/dL (1.8-2.4); POTASSIUM 3.2 mmol/L (3.5-5.1)
--- NOTE | 2019-11-23 07:20 | NUR ---
Received patient resting in bed, asleep. No acute distress noted, no S/S of SOB. Bed in lowest position, side rails up x2, call light within reach, will continue to monitor.
[2019-11-23] MEDS: FLUOXETINE HCL 20 MG CAPSULE NG SCH (08:23)
[2019-11-23] MEDS: AMLODIPINE 5 MG TABLET PO SCH ×2 (08:23→20:31)
[2019-11-23] MEDS: POTASSIUM CHLORIDE 50 ML IV SCH ×2 (08:23→09:27)
[2019-11-23] MEDS: methylPREDNISolone SOD SUCC 40 MG/ML VIAL IV SCH (08:23)
[2019-11-23] MEDS: HEPARIN SODIUM,PORCINE 5,000 UNITS/ML VIAL SQ SCH ×2 (08:25→20:32)
[2019-11-23] MEDS: IPRATROPIUM BROMIDE 12.9 GM INHALER INH SCH ×4 (08:27→19:30)
[2019-11-23] MEDS: Z GUARD REMEDY PASTE 57 GM TUBE TOP SCH ×2 (08:27→20:33)
[2019-11-23] MEDS: ALBUTEROL SULFATE 8 GM HFA.AER.AD IH SCH ×4 (08:27→19:30)
[2019-11-23 11:30] VITALS: BP 159/93
[2019-11-23] MEDS: IV D5 1/2 NS 1000 ML 1,000 ML IV PRN (13:16)
[2019-11-23 16:00] VITALS: BP 139/79
--- NOTE | 2019-11-23 20:00 | NUR ---
Received patient lying in bed. AAOx1 only. In no acute distress. Denies any pain or SOB. Sinus tachy on tele 109/min with right BBB. O2 at 0.5L per min. via NC in place. O2 sat at 96%. HOB kept elevated. PICC line on right jugular intact and patent. IVF infusing. Contact and droplet precaution observed. Safety measure initiated. Continue to monitor.
[2019-11-23] MEDS: BENZTROPINE MESYLATE 1 MG TABLET NG SCH (20:31)
[2019-11-23] MEDS: ATORVASTATIN 20 MG TABLET NG SCH (20:31)
[2019-11-23 20:43] VITALS: BP 135/68
[2019-11-24] VITALS: BP 130/79
[2019-11-24] MEDS: IV D5 1/2 NS 1000 ML 1,000 ML IV PRN ×2 (03:14→23:14)
[2019-11-24 04:00] VITALS: BP 134/62
[2019-11-24] MEDS: METOCLOPRAMIDE HCL 10 MG/2 ML VIAL IV SCH ×3 (05:04→21:08)
[2019-11-24] MEDS: BLOOD SUGAR DIAGNOSTIC 1 EACH STRIP VI SCH ×4 (05:15→23:46)
[2019-11-24] MEDS: INSULIN REGULAR, HUMAN 300 UNIT/3 ML VIAL SQ PRN ×4 (05:18→23:49)
--- NOTE | 2019-11-24 05:46 | NUR ---
AAOx1 only. In no acute distress. Denies any pain or SOB. Sinus tachy on tele 110/min with right BBB. O2 at 0.5L per min. via NC in place. PICC line on right jugular intact and patent. IVF infusing. Garcia catheter intact and draining via gravity. Contact and droplet precaution maintained. Safety measure maintained.
[2019-11-24 05:57] LABS: BASOPHILS % (AUTO) 0.5 % (0.0-2.0); EOSINOPHILS # (AUTO) 0.1 K/uL (0.0-0.7); EOSINOPHILS % (AUTO) 0.7 % (0.0-7.0); HEMATOCRIT 29.6 % (31.2-41.9); HEMOGLOBIN 9.5 g/dL (10.9-14.3); LYMPHOCYTES # (AUTO) 0.8 K/uL (20.0-40.0); LYMPHOCYTES % (AUTO) 10.4 % (20.5-51.5); MEAN CORPUSCULAR HEMOGLOBIN 28.7 uug (24.7-32.8); MEAN CORPUSCULAR HGB CONC 32 g/dL (32.3-35.6); MONOCYTES # (AUTO) 0.8 K/uL (2.0-10.0); MONOCYTES % (AUTO) 9.3 % (0.0-11.0); NEUTROPHILS # (AUTO) 6.4 K/uL (1.8-8.9); NEUTROPHILS % (AUTO) 79.1 % (38.5-71.5); PLATELET COUNT (AUTO) 183 K/uL (179-408); RED BLOOD CELL COUNT(AUTO) 3.29 MIL/uL (3.63-4.92); WHITE BLOOD COUNT (AUTO) 8.1 K/uL (3.8-11.8)
[2019-11-24 06:06] LABS: CREATININE 1.3 mg/dL (0.6-1.3); MAGNESIUM 1.5 mg/dL (1.8-2.4); PHOSPHOROUS 2.7 mg/dL (2.5-4.9); POTASSIUM 3.5 mmol/L (3.5-5.1)
--- NOTE | 2019-11-24 08:00 | NUR ---
Pt awake Alert to her name. Pt is in no acute distress. Bed alarm on for Fall precaution. Pt moves side to side on bed. Decreased environmental stimuli to get pt to calm down. Aspiration precaution implemented.
[2019-11-24 08:50] LABS: ABG HCO3 24.6 mmol/L; ABG PCO2 35.7 mmHg (35.0-45.0); ABG PH 7.457 (7.350-7.450); ABG PO2 59.9 mmHg (75.0-100.0); ABG SITE RIGHT RADIAL; ABG TOTAL HEMOGLOBIN 10.6 G/dL (12.0-16.0); MetHb 0.2 % (0.0-1.5); O2Hb 90.3 % (94.0-97.0); VENT MODE Nasal Cannula
[2019-11-24] MEDS: FLUOXETINE HCL 20 MG CAPSULE NG SCH (08:59)
[2019-11-24] MEDS: AMLODIPINE 5 MG TABLET PO SCH ×2 (09:01→21:08)
[2019-11-24] MEDS: HEPARIN SODIUM,PORCINE 5,000 UNITS/ML VIAL SQ SCH ×2 (09:07→21:07)
[2019-11-24] MEDS: Z GUARD REMEDY PASTE 57 GM TUBE TOP SCH ×2 (09:08→21:09)
[2019-11-24] MEDS: methylPREDNISolone SOD SUCC 40 MG/ML VIAL IV SCH (09:08)
[2019-11-24] MEDS: IPRATROPIUM BROMIDE 12.9 GM INHALER INH SCH ×4 (09:09→21:45)
[2019-11-24] MEDS: ALBUTEROL SULFATE 8 GM HFA.AER.AD IH SCH ×4 (09:09→21:45)
[2019-11-24] MEDS: POTASSIUM CHLORIDE 50 ML IV SCH ×2 (09:11→11:07)
[2019-11-24] MEDS: MAGNESIUM SULFATE/D5W 100 ML IV SCH ×2 (09:11→11:07)
--- NOTE | 2019-11-24 09:30 | NUR ---
Pt had good breakfast 50%. No pocketing noted. Call light is within reach.
--- NOTE | 2019-11-24 10:30 | NUR ---
Dr hwang notified pt found on floor by MONEY ROOM SUPERVISOR. MONEY ROOM SUPERVISOR states that pt was easing her self to the floor. No apparent injury noted. No change on mentation. No new order received.
[2019-11-24 12:00] VITALS: BP 129/82
[2019-11-24 16:00] VITALS: BP 134/80
[2019-11-24] MEDS: ACETAMINOPHEN 325 MG TABLET PO PRN (16:30)
--- NOTE | 2019-11-24 16:30 | NUR ---
Elevated temp noted. 100.[address] hwang. No new orders received. Call light is within reach.
--- NOTE | 2019-11-24 18:21 | NUR ---
Tylenol effective. Temp 97.6. 1:1 Sitter at bedside for safety. Pt is in no acute distress. Call light is within reach.
--- NOTE | 2019-11-24 19:15 | NUR ---
Patient received in bed, AAOx1. Patient has no s/s of acute distress or pain at this time. Patient is afebrile at this time. Patient's castillo is draining cloudy urine. VS stable. Patient is on 0.5L NC and setting WNL. Patient's R. jugular vein 3 lumen PICC line intact on both brown and white. Blue lumen is not intact. Safety measures in place. Sitter is on site for safety. Bed low and locked in position. Will continue with the plan of care.
[2019-11-24 20:00] VITALS: BP 134/87
[2019-11-24] MEDS: BENZTROPINE MESYLATE 1 MG TABLET NG SCH (21:08)
[2019-11-24] MEDS: ATORVASTATIN 20 MG TABLET NG SCH (21:08)
[2019-11-25 04:00] VITALS: BP 143/58
[2019-11-25] MEDS: METOCLOPRAMIDE HCL 10 MG/2 ML VIAL IV SCH ×3 (05:50→23:04)
[2019-11-25] MEDS: BLOOD SUGAR DIAGNOSTIC 1 EACH STRIP VI SCH ×4 (06:18→23:47)
[2019-11-25] MEDS: INSULIN REGULAR, HUMAN 300 UNIT/3 ML VIAL SQ PRN ×2 (06:23→12:11)
--- NOTE | 2019-11-25 06:41 | NUR ---
Patient slept intermittently throughout the night. Patient is AAOx1. Patient has no s/s of acute distress or pain at this time. Patient is afebrile at this time. Vitals stable. Prescribed medications given, patient tolerated. Garcia is draining cloudy yellow urine. Comfort care and needs attended. Turned and repositioned for comfort. Incontinence care provided. Fall and aspiration precaution maintained. Safety measures in place. Bed low and locked in position. Call light within reach. Will endorse to the oncoming nurse accordingly.
[2019-11-25 06:42] LABS: BASOPHILS % (AUTO) 0.3 % (0.0-2.0); EOSINOPHILS % (AUTO) 0.3 % (0.0-7.0); HEMATOCRIT 30.3 % (31.2-41.9); HEMOGLOBIN 9.6 g/dL (10.9-14.3); LYMPHOCYTES # (AUTO) 0.8 K/uL (20.0-40.0); LYMPHOCYTES % (AUTO) 7.4 % (20.5-51.5); MEAN CORPUSCULAR HEMOGLOBIN 28.4 uug (24.7-32.8); MEAN CORPUSCULAR HGB CONC 32 g/dL (32.3-35.6); MEAN CORPUSCULAR VOLUME 89.4 fL (75.5-95.3); MONOCYTES # (AUTO) 0.9 K/uL (2.0-10.0); MONOCYTES % (AUTO) 8.4 % (0.0-11.0); NEUTROPHILS # (AUTO) 9.5 K/uL (1.8-8.9); NEUTROPHILS % (AUTO) 83.6 % (38.5-71.5); PLATELET COUNT (AUTO) 170 K/uL (179-408); WHITE BLOOD COUNT (AUTO) 11.4 K/uL (3.8-11.8)
[2019-11-25 07:01] LABS: BILIRUBIN,TOTAL 0.6 mg/dL (0.2-1.0); CREATININE 1.3 mg/dL (0.6-1.3); MAGNESIUM 1.6 mg/dL (1.8-2.4); PHOSPHOROUS 1.7 mg/dL (2.5-4.9); POTASSIUM 3.7 mmol/L (3.5-5.1); TOTAL PROTEIN, SERUM 6.8 g/dL (6.4-8.2)
[2019-11-25] MEDS: ALBUTEROL SULFATE 8 GM HFA.AER.AD IH SCH ×4 (07:35→19:51)
[2019-11-25] MEDS: IPRATROPIUM BROMIDE 12.9 GM INHALER INH SCH ×4 (07:35→19:52)
[2019-11-25] MEDS: FLUOXETINE HCL 20 MG CAPSULE NG SCH (08:24)
[2019-11-25] MEDS: methylPREDNISolone SOD SUCC 40 MG/ML VIAL IV SCH (08:24)
[2019-11-25] MEDS: HEPARIN SODIUM,PORCINE 5,000 UNITS/ML VIAL SQ SCH ×2 (08:26→22:58)
--- NOTE | 2019-11-25 08:30 | NUR ---
Received patient in bed, alert and awake. Patient has a non-productive cough and there are no signs of respiratory distress observed. Patient is on room air saturating at 94%. Patient has a triple lumen jugular PICC line, brown and white are patent running D5 1/2 NS @ 55 CC per hour. Patient is afebrile at this time. All safety precautions observed, bed is in the lowest position and call light and belongings are within reach. Will continue to observe and monitor.
[2019-11-25] MEDS ORDERED: POTASSIUM CHLORIDE 50 ML IV SCH (08:45)
[2019-11-25] MEDS: AMLODIPINE 5 MG TABLET PO SCH ×2 (08:47→22:57)
[2019-11-25] MEDS: Z GUARD REMEDY PASTE 57 GM TUBE TOP SCH ×2 (08:48→21:00)
[2019-11-25] MEDS: MAGNESIUM SULFATE/D5W 100 ML IV SCH ×2 (09:02→10:10)
[2019-11-25] MEDS ORDERED: POTASSIUM PHOSPHATE MM 15 MMOL in IV NORMAL SALINE 250 ML IV ONE (10:00)
--- NOTE | 2019-11-25 20:00 | NUR ---
PATIENT RECEIVED INTO CARE, LAYING IN BED ASLEEP, WITH 1:1 SITTER. PATIENT HAS NO S/S OF ACUTE DISTRESS OR DISCOMFORT NOTED/OBSERVED BY THIS NURSE. IJ TRIPLE LUMEN CATH IS PATENT AND RUNNING D5 1/2 NS. ALL SAFETY, FALL, ISOLATION, AND ALLERGY PRECAUTIONS ARE N PLACE. CALL LIGHT AND PERSONAL ITEMS ARE WITHIN REACH. WILL CONTINUE TO MONITOR AND ASSESS.
[2019-11-25] MEDS: IV D5 1/2 NS 1000 ML 1,000 ML IV PRN (22:17)
[2019-11-25] MEDS: ATORVASTATIN 20 MG TABLET NG SCH (22:56)
[2019-11-25] MEDS: BENZTROPINE MESYLATE 1 MG TABLET NG SCH (22:57)
[2019-11-26 04:00] VITALS: BP 137/85
[2019-11-26] MEDS: METOCLOPRAMIDE HCL 10 MG/2 ML VIAL IV SCH ×3 (05:11→21:32)
[2019-11-26] MEDS: BLOOD SUGAR DIAGNOSTIC 1 EACH STRIP VI SCH ×4 (05:33→23:58)
[2019-11-26 06:55] LABS: BASOPHILS % (AUTO) 0.3 % (0.0-2.0); EOSINOPHILS # (AUTO) 0.1 K/uL (0.0-0.7); EOSINOPHILS % (AUTO) 0.9 % (0.0-7.0); HEMATOCRIT 27.9 % (31.2-41.9); LYMPHOCYTES # (AUTO) 1.3 K/uL (20.0-40.0); MEAN CORPUSCULAR HGB CONC 32 g/dL (32.3-35.6); MEAN CORPUSCULAR VOLUME 89.9 fL (75.5-95.3); MONOCYTES % (AUTO) 10.1 % (0.0-11.0); NEUTROPHILS # (AUTO) 7.7 K/uL (1.8-8.9); NEUTROPHILS % (AUTO) 75.7 % (38.5-71.5); PLATELET COUNT (AUTO) 146 K/uL (179-408); RED BLOOD CELL COUNT(AUTO) 3.11 MIL/uL (3.63-4.92); WHITE BLOOD COUNT (AUTO) 10.2 K/uL (3.8-11.8)
[2019-11-26 07:16] LABS: CREATININE 1.2 mg/dL (0.6-1.3); PHOSPHOROUS 2.8 mg/dL (2.5-4.9); POTASSIUM 3.9 mmol/L (3.5-5.1)
[2019-11-26 08:00] VITALS: BP 130/67
[2019-11-26] MEDS: FLUOXETINE HCL 20 MG CAPSULE NG SCH (08:08)
[2019-11-26] MEDS: Z GUARD REMEDY PASTE 57 GM TUBE TOP SCH ×2 (08:08→21:27)
[2019-11-26] MEDS: IPRATROPIUM BROMIDE 12.9 GM INHALER INH SCH ×4 (08:08→20:16)
[2019-11-26] MEDS: methylPREDNISolone SOD SUCC 40 MG/ML VIAL IV SCH (08:08)
[2019-11-26] MEDS: ALBUTEROL SULFATE 8 GM HFA.AER.AD IH SCH ×4 (08:08→20:16)
[2019-11-26] MEDS: HEPARIN SODIUM,PORCINE 5,000 UNITS/ML VIAL SQ SCH ×2 (08:11→21:30)
[2019-11-26] MEDS: AMLODIPINE 5 MG TABLET PO SCH ×2 (08:18→21:44)
--- NOTE | 2019-11-26 09:12 | NUR ---
Received patient resting in bed, alert and awake. pt. appears in no distress, no difficulty breathing. Patient has a non-productive cough. Patient is on room air saturating at 95%. Patient has a triple lumen jugular PICC line, all lumens are patent and flushing well white lumen running D5 1/2 NS @ 55 CC per hour. Patient has 99.3 temperature. Will initiate cooling measures. All safety precautions observed, bed is in the lowest position and call light and belongings are within reach. Will continue to observe and monitor.
[2019-11-26] MEDS: IV D5 1/2 NS 1000 ML 1,000 ML IV PRN (12:20)
[2019-11-26] MEDS: INSULIN REGULAR, HUMAN 300 UNIT/3 ML VIAL SQ PRN (12:22)
[2019-11-26 16:00] VITALS: BP 146/89
--- NOTE | 2019-11-26 20:00 | NUR ---
PATIENT RECEIVED INTO CARE, LAYING IN BED, RESTING COMFORTABLY. PATIENT IS AO X1 AND HAS NO COMPLAINTS OF PAIN OR DISCOMFORT AT THIS TIME AND THERE ARE NO S/S OF ACUTE DISTRESS OR DISCOMFORT NOTED/OBSERVED BY THIS NURSE. ALL SAFETY, FALL, ALLERGY, AND ISOLATION PRECAUTIONS ARE IN PLACE. CALL LIGHT AND PERSONAL ITEMS ARE WITHIN REACH AT ALL TIMES. WILL CONTINUE TO MONITOR AND ASSESS.
[2019-11-26 20:36] VITALS: BP 135/84
[2019-11-26] MEDS: ATORVASTATIN 20 MG TABLET NG SCH (21:32)
[2019-11-26] MEDS: BENZTROPINE MESYLATE 1 MG TABLET NG SCH (21:32)
[2019-11-27] MEDS: IV D5 1/2 NS 1000 ML 1,000 ML IV PRN ×2 (02:25→17:13)
[2019-11-27 04:30] VITALS: BP 137/87
--- NOTE | 2019-11-27 06:00 | NUR ---
PATIENT SLEPT WELL THROUGHOUT NIGHT WITH NO COMPLAINTS OF PAIN OR DISCOMFORT VERBALIZED BY PATIENT AND NO S/S OF ACUTE DISTRESS OR DISCOMFORT NOTED/OBSERVED BY NURSE. ALL NURSING NEEDS WERE MET PROMPTLY AND PATIENT IS WARM, DRY, AND COMFORTABLE.
[2019-11-27] MEDS: METOCLOPRAMIDE HCL 10 MG/2 ML VIAL IV SCH ×3 (06:09→21:41)
[2019-11-27] MEDS: BLOOD SUGAR DIAGNOSTIC 1 EACH STRIP VI SCH ×4 (06:16→23:12)
[2019-11-27] MEDS: ACETAMINOPHEN 650 MG SUPP.RECT RC PRN ×2 (08:21→12:49)
[2019-11-27] MEDS: FLUOXETINE HCL 20 MG CAPSULE NG SCH (08:31)
[2019-11-27] MEDS: predniSONE 20 MG TABLET PO SCH (08:32)
[2019-11-27] MEDS: AMLODIPINE 5 MG TABLET PO SCH ×2 (08:32→21:52)
[2019-11-27] MEDS: HEPARIN SODIUM,PORCINE 5,000 UNITS/ML VIAL SQ SCH ×2 (08:36→21:41)
[2019-11-27] MEDS: ALBUTEROL SULFATE 8 GM HFA.AER.AD IH SCH ×4 (08:37→19:43)
[2019-11-27] MEDS: IPRATROPIUM BROMIDE 12.9 GM INHALER INH SCH ×4 (08:37→19:43)
[2019-11-27] MEDS: Z GUARD REMEDY PASTE 57 GM TUBE TOP SCH ×2 (08:37→21:42)
[2019-11-27 09:35] VITALS: BP 160/87
[2019-11-27] MEDS: INSULIN REGULAR, HUMAN 300 UNIT/3 ML VIAL SQ PRN (12:45)
[2019-11-27 17:23] VITALS: BP 172/105
[2019-11-27] MEDS: hydrALAZINE HCL 25 MG TABLET PO PRN (17:42)
--- NOTE | 2019-11-27 20:02 | NUR ---
Patient received into care, laying in bed, resting comfortably. Patient is alert/oriented x1 and responded to this nurse when speaking with her. Pt has no complaints of pain or discomfort at this time and there are no s/s of acute distress or discomfort noted/observed by this nurse. All safety, fall, allergy, and isolation precautions are in place. Call light and personal items are within reach. Will continue to monitor and assess.
[2019-11-27 20:45] VITALS: BP 135/82
[2019-11-27] MEDS: BENZTROPINE MESYLATE 1 MG TABLET NG SCH (21:41)
[2019-11-27] MEDS: ATORVASTATIN 20 MG TABLET NG SCH (21:41)
[2019-11-27] MEDS: ACETAMINOPHEN 650 MG/20.3 ML LIQUID UDC NG PRN (21:44)
[2019-11-28] MEDS: METOCLOPRAMIDE HCL 10 MG/2 ML VIAL IV SCH ×3 (05:11→22:53)
[2019-11-28] MEDS: BLOOD SUGAR DIAGNOSTIC 1 EACH STRIP VI SCH ×5 (05:16→23:45)
[2019-11-28] MEDS: ACETAMINOPHEN 650 MG/20.3 ML LIQUID UDC NG PRN (05:50)
[2019-11-28] MEDS: IV D5 1/2 NS 1000 ML 1,000 ML IV PRN (05:50)
--- NOTE | 2019-11-28 06:05 | NUR ---
This nurse was notified by GROUNDSKEEPER SUPERVISOR of elevated BP of 179/104 HR 105. This nurse reverified elevated BP and addressed it with prescribed PRN hydralazine 25mg for systolic BP >150. Will continue to monitor and assess.
[2019-11-28] MEDS: hydrALAZINE HCL 25 MG TABLET PO PRN ×2 (06:06→16:22)
[2019-11-28 06:14] VITALS: BP 179/104
--- NOTE | 2019-11-28 06:15 | NUR ---
Patient slept intermittently throughout night with no s/s of acute distress or discomfort noted or observed by this nurse. All prescribed medications provided as ordered and tolerated well, with no adverse side effects noted or observed by this nurse. Patient has remained afrebile and VS at beginning of shift were WNL. 0400 VS reflected an increase in BP of 179/104 HR 105 which has been addressed with prescribed hydralazine 25mg PO. All nursing needs were met promptly and patient is warm, dry, and comfortable. All safety, allergy, isolation, and fall precaution measures remain in place. Call light and personal items remain within reach.
--- NOTE | 2019-11-28 08:00 | NUR ---
Received patient in bed, awake. On Oxygen at 1L via nasal canula, saturating 93%. No signs of distress noted. No complain of pain or discomfort. IVF infusing well on Right IJ, All needs attended and met. kept clean and comfortable. Will continue to monitor.
[2019-11-28] MEDS: IPRATROPIUM BROMIDE 12.9 GM INHALER INH SCH ×4 (08:26→20:08)
[2019-11-28] MEDS: ALBUTEROL SULFATE 8 GM HFA.AER.AD IH SCH ×4 (08:26→20:08)
[2019-11-28] MEDS: predniSONE 20 MG TABLET PO SCH (08:33)
[2019-11-28] MEDS: FLUOXETINE HCL 20 MG CAPSULE NG SCH (08:33)
[2019-11-28] MEDS: AMLODIPINE 5 MG TABLET PO SCH ×2 (08:35→21:30)
[2019-11-28] MEDS: Z GUARD REMEDY PASTE 57 GM TUBE TOP SCH ×2 (08:35→21:30)
[2019-11-28] MEDS: HEPARIN SODIUM,PORCINE 5,000 UNITS/ML VIAL SQ SCH ×2 (09:49→20:16)
[2019-11-28] MEDS: INSULIN REGULAR, HUMAN 300 UNIT/3 ML VIAL SQ PRN ×2 (11:41→18:11)
[2019-11-28 12:00] VITALS: BP 131/91
[2019-11-28 16:00] VITALS: BP 160/90
--- NOTE | 2019-11-28 18:40 | NUR ---
Patient is awake and verbally responsive. No signs of distress noted. Saturating 98% on Room Air. No complain of Pain or discomfort. Afebrile. Remains on contact and droplet Isolation for Covid 19. Proper PPE strictly Observed. Kept clean and comfortable. Will endorsed to Oncoming Nurse.
[2019-11-28] MEDS ORDERED: DEXTROSE 50% 50 ML DISP.SYRIN IV PRN (20:00)
[2019-11-28 20:37] VITALS: BP 139/89
--- NOTE | 2019-11-28 21:00 | NUR ---
PT placed back to bed; incontinence care for BM done; needs attended; safety maintained
[2019-11-28] MEDS: BENZTROPINE MESYLATE 1 MG TABLET NG SCH (21:30)
[2019-11-28] MEDS: ATORVASTATIN 20 MG TABLET NG SCH (21:30)
--- NOTE | 2019-11-29 | NUR ---
Pt back to maeve chair for pt keeps getting out of bed; needs attended; safety maintained.
[2019-11-29] MEDS: METOCLOPRAMIDE HCL 10 MG/2 ML VIAL IV SCH ×3 (05:27→21:21)
[2019-11-29] MEDS: hydrALAZINE HCL 25 MG TABLET PO PRN (05:27)
[2019-11-29 05:51] VITALS: BP 174/96
--- NOTE | 2019-11-29 06:00 | NUR ---
BP elevated; hydralazine joseph GROSS. Addendum: 11/29/19 at 0645 by JACOB GARCIA RN amy: [email or web address]* corrected
[2019-11-29] MEDS: BLOOD SUGAR DIAGNOSTIC 1 EACH STRIP VI SCH ×4 (06:20→21:39)
[2019-11-29] MEDS: IPRATROPIUM BROMIDE 12.9 GM INHALER INH SCH ×4 (07:35→20:45)
[2019-11-29] MEDS: ALBUTEROL SULFATE 8 GM HFA.AER.AD IH SCH ×4 (07:35→20:45)
--- NOTE | 2019-11-29 08:00 | NUR ---
PATIENT IS AWAKE ALERT TO SELF UNABLE TO VERBALLY RESPOND BUT MUMBLES ALL NEEDS ANTICIPATED AND SATISFIED TOTALLY DEPENDENT ON NURSES FOR ALL ADL TURNED AND REPOSITIONED Q2H REMAIN ON ISOLATION AND PRECAUTION PATIENT IS COVID POSITIVE SHE IS ON ROOM AIR WITH NO SHORTNESS OF BREATH AT THIS TIME.IVF ORDERED WITH NO S/S OF INFILTERATION RIGHT JUGULAR VEIN SITE IS INTACT AND PATENT EPSTEIN CATH TO GRAVITY DRAINAGE WITH NO HEMATURIA MADE COMFORTABLE WILL CONTINUE TO OBSERVE AND PROVIDE COMFORT
[2019-11-29] MEDS: AMLODIPINE 5 MG TABLET PO SCH ×2 (08:46→21:17)
[2019-11-29] MEDS: FLUOXETINE HCL 20 MG CAPSULE NG SCH (08:46)
[2019-11-29] MEDS: predniSONE 20 MG TABLET PO SCH (08:46)
[2019-11-29] MEDS: Z GUARD REMEDY PASTE 57 GM TUBE TOP SCH ×2 (08:47→21:21)
[2019-11-29] MEDS: HEPARIN SODIUM,PORCINE 5,000 UNITS/ML VIAL SQ SCH ×2 (08:48→21:20)
[2019-11-29] MEDS: IV D5 1/2 NS 1000 ML 1,000 ML IV PRN (09:11)
--- NOTE | 2019-11-29 10:32 | NUR ---
PATIENT SEEN AND EXAMINED BY DR MCKINNEY CARDIO AND DR LEHMAN PULMONARY WITH NEW ORDERS AND NOTED
[2019-11-29] MEDS: CARVEDILOL 6.25 MG TABLET PO SCH ×2 (11:57→17:11)
[2019-11-29 12:00] VITALS: BP 105/65
[2019-11-29] MEDS: INSULIN REGULAR, HUMAN 300 UNIT/3 ML VIAL SQ PRN (12:08)
[2019-11-29 16:00] VITALS: BP 124/71
[2019-11-29 16:20] LABS: BASOPHILS % (AUTO) 0.4 % (0.0-2.0); EOSINOPHILS % (AUTO) 0.1 % (0.0-7.0); HEMATOCRIT 32.6 % (31.2-41.9); HEMOGLOBIN 10.2 g/dL (10.9-14.3); LYMPHOCYTES # (AUTO) 0.6 K/uL (20.0-40.0); MEAN CORPUSCULAR HEMOGLOBIN 28.4 uug (24.7-32.8); MEAN CORPUSCULAR HGB CONC 31 g/dL (32.3-35.6); MONOCYTES # (AUTO) 0.3 K/uL (2.0-10.0); MONOCYTES % (AUTO) 4.1 % (0.0-11.0); NEUTROPHILS % (AUTO) 88.4 % (38.5-71.5); PLATELET COUNT (AUTO) 146 K/uL (179-408); RED BLOOD CELL COUNT(AUTO) 3.58 MIL/uL (3.63-4.92); WHITE BLOOD COUNT (AUTO) 7.9 K/uL (3.8-11.8)
[2019-11-29 16:44] LABS: BILIRUBIN,TOTAL 0.3 mg/dL (0.2-1.0); CREATININE 1.2 mg/dL (0.6-1.3); MAGNESIUM 1.6 mg/dL (1.8-2.4); PHOSPHOROUS 3.3 mg/dL (2.5-4.9); POTASSIUM 4.1 mmol/L (3.5-5.1); TOTAL PROTEIN, SERUM 6.7 g/dL (6.4-8.2)
--- NOTE | 2019-11-29 20:00 | NUR ---
Received patient awake but confused. Patient shows no signs or symptoms of distress at this time. Vital signs table Afebrile and O2 saturation is 96% on RA. Bed set to lowest position. Call light within reach. Will continue to monitor patient.
[2019-11-29] MEDS: BENZTROPINE MESYLATE 1 MG TABLET NG SCH (21:17)
[2019-11-29] MEDS: ATORVASTATIN 20 MG TABLET NG SCH (21:17)
[2019-11-29 21:20] VITALS: BP 148/77
[2019-11-30] MEDS: IV D5 1/2 NS 1000 ML 1,000 ML IV PRN ×2 (00:16→18:05)
[2019-11-30] MEDS: METOCLOPRAMIDE HCL 10 MG/2 ML VIAL IV SCH ×3 (05:47→21:05)
[2019-11-30 06:07] VITALS: BP 143/85
--- NOTE | 2019-11-30 06:33 | NUR ---
Patient shows no signs or symptoms of distress at this time. Vital signs stable. Afebrile throughout the shift. O2 saturation 96% on RA. Central line dressing changed. Pt resting comfortably in bed. Will endorse patient to day shift nurse in stable condition.
[2019-11-30] MEDS: BLOOD SUGAR DIAGNOSTIC 1 EACH STRIP VI SCH ×4 (06:39→20:34)
[2019-11-30] MEDS: FLUOXETINE HCL 20 MG CAPSULE NG SCH (09:07)
[2019-11-30] MEDS: predniSONE 20 MG TABLET PO SCH (09:08)
[2019-11-30] MEDS: ALBUTEROL SULFATE 8 GM HFA.AER.AD IH SCH ×4 (09:10→21:04)
[2019-11-30] MEDS: Z GUARD REMEDY PASTE 57 GM TUBE TOP SCH ×2 (09:10→20:44)
[2019-11-30] MEDS: AMLODIPINE 5 MG TABLET PO SCH ×2 (09:16→20:31)
[2019-11-30] MEDS: CARVEDILOL 6.25 MG TABLET PO SCH ×2 (09:16→18:05)
[2019-11-30] MEDS: IPRATROPIUM BROMIDE 12.9 GM INHALER INH SCH ×4 (09:17→21:04)
[2019-11-30] MEDS: HEPARIN SODIUM,PORCINE 5,000 UNITS/ML VIAL SQ SCH ×2 (09:52→20:55)
[2019-11-30 11:30] VITALS: BP 144/83
[2019-11-30] MEDS: INSULIN REGULAR, HUMAN 300 UNIT/3 ML VIAL SQ PRN (13:08)
[2019-11-30 16:00] VITALS: BP 149/78
--- NOTE | 2019-11-30 19:00 | NUR ---
PATIENT ALERT BUT FORGETFUL, NO SOB NO CHEST PAIN. PATIENT SEATED IN RECLINING CHAIR AT THIS TIME. PATIENT REFUSED TO STAY IN BED, RISK FOR FALL AND INJURY. PATIENT REMAINS ON DROPLET PRECAUTION, KEPT CLEAN AND DRY, FREQUENT VISUAL CHECK DONE, BED ALARM WAS PUT ON.
[2019-11-30] MEDS: BENZTROPINE MESYLATE 1 MG TABLET NG SCH (20:31)
[2019-11-30] MEDS: ATORVASTATIN 20 MG TABLET NG SCH (20:32)
[2019-11-30 20:41] VITALS: BP 133/81
[2019-12-01] MEDS: METOCLOPRAMIDE HCL 10 MG/2 ML VIAL IV SCH ×3 (05:06→21:04)
[2019-12-01] MEDS: BLOOD SUGAR DIAGNOSTIC 1 EACH STRIP VI SCH ×4 (05:07→21:11)
--- NOTE | 2019-12-01 06:15 | NUR ---
PATIENT ALERT BUT FORGETFUL, NO SOB NO CHEST PAIN, NO COMPLAIN OF PAIN AT THIS TIME. PATIENT REMAINS ON DROPLET PRECAUTION. PATIENT EPSTEIN CATH DRAINING WITH CLEAR YELLOW COLOR URINE. PATIENT AFEBRILE, OXYGEN SAT WNL WITH OXYGEN SUPPLEMENT. PATIENT REMAINS DROPLET PRECAUTION. CONT TO MONITOR.
[2019-12-01 06:51] VITALS: BP 143/78
--- NOTE | 2019-12-01 07:25 | NUR ---
UP ON CHAIR ON RESTING POSITION, NO SS OF PAIN OR DISTRESS. CLOSELY MONITORED FOR SAFETY.
[2019-12-01] MEDS: ACETAMINOPHEN 325 MG TABLET PO PRN (08:12)
[2019-12-01] MEDS: FLUOXETINE HCL 20 MG CAPSULE NG SCH (08:13)
[2019-12-01] MEDS: predniSONE 20 MG TABLET PO SCH (08:13)
[2019-12-01] MEDS: CARVEDILOL 6.25 MG TABLET PO SCH ×2 (08:13→17:22)
[2019-12-01] MEDS: AMLODIPINE 5 MG TABLET PO SCH ×2 (08:14→21:01)
[2019-12-01] MEDS: HEPARIN SODIUM,PORCINE 5,000 UNITS/ML VIAL SQ SCH ×2 (08:15→21:27)
[2019-12-01] MEDS: Z GUARD REMEDY PASTE 57 GM TUBE TOP SCH ×2 (08:17→20:49)
[2019-12-01] MEDS: IV D5 1/2 NS 1000 ML 1,000 ML IV PRN ×2 (09:24→21:33)
--- NOTE | 2019-12-01 09:45 | NUR ---
SEEN BY HOSPITALIST CONTINUE CURRENT TX PLAN. DC PLANNING INITIATED PENDING COVID 19 RESULTS
--- NOTE | 2019-12-01 10:11 | NUR ---
SEEN BY SPEECH THERAPIST SEE NOTES
[2019-12-01 11:38] VITALS: BP 126/76
[2019-12-01] MEDS: INSULIN REGULAR, HUMAN 300 UNIT/3 ML VIAL SQ PRN ×2 (11:52→17:24)
[2019-12-01 16:00] VITALS: BP 139/70
[2019-12-01 20:00] VITALS: BP 145/98
[2019-12-01] MEDS: ALBUTEROL SULFATE 8 GM HFA.AER.AD IH SCH (20:30)
[2019-12-01] MEDS: IPRATROPIUM BROMIDE 12.9 GM INHALER INH SCH (20:30)
[2019-12-01] MEDS: BENZTROPINE MESYLATE 1 MG TABLET NG SCH (20:44)
[2019-12-01] MEDS: ATORVASTATIN 20 MG TABLET NG SCH (20:44)
[2019-12-02 04:00] VITALS: BP 128/76
[2019-12-02] MEDS: METOCLOPRAMIDE HCL 10 MG/2 ML VIAL IV SCH ×3 (06:26→21:18)
[2019-12-02] MEDS: BLOOD SUGAR DIAGNOSTIC 1 EACH STRIP VI SCH ×4 (06:32→21:22)
--- NOTE | 2019-12-02 06:50 | NUR ---
Patient slept well. No SOB noted. Central line w/ Triple lumen on RIJ vein intact and patent w/ IVF infusing. F/C intact and draining clear yellow urine. Kept clean and dry. Will endorse accordingly
[2019-12-02] MEDS: IPRATROPIUM BROMIDE 12.9 GM INHALER INH SCH ×4 (07:35→20:33)
[2019-12-02] MEDS: ALBUTEROL SULFATE 8 GM HFA.AER.AD IH SCH ×4 (07:35→20:33)
--- NOTE | 2019-12-02 07:37 | NUR ---
Received pt. in bed asleep, wakes up to touch. AOx1. Able to follow instructions. No signs of distress. All needs met. Safety and fall prevention in place. bed locked and in low position. Call light in reach. will continue to monitor.
[2019-12-02 07:41] LABS: BASOPHILS # (AUTO) 0.1 K/uL (0.0-8.0); BASOPHILS % (AUTO) 0.9 % (0.0-2.0); EOSINOPHILS # (AUTO) 0.1 K/uL (0.0-0.7); EOSINOPHILS % (AUTO) 0.9 % (0.0-7.0); HEMATOCRIT 31.5 % (31.2-41.9); HEMOGLOBIN 10.1 g/dL (10.9-14.3); MEAN CORPUSCULAR HEMOGLOBIN 28.8 uug (24.7-32.8); MEAN CORPUSCULAR HGB CONC 32 g/dL (32.3-35.6); MEAN CORPUSCULAR VOLUME 89.9 fL (75.5-95.3); MONOCYTES # (AUTO) 0.6 K/uL (2.0-10.0); MONOCYTES % (AUTO) 9.3 % (0.0-11.0); NEUTROPHILS # (AUTO) 5.1 K/uL (1.8-8.9); NEUTROPHILS % (AUTO) 74.9 % (38.5-71.5); PLATELET COUNT (AUTO) 135 K/uL (179-408); RED BLOOD CELL COUNT(AUTO) 3.51 MIL/uL (3.63-4.92); WHITE BLOOD COUNT (AUTO) 6.8 K/uL (3.8-11.8)
[2019-12-02 07:57] LABS: BILIRUBIN,TOTAL 0.5 mg/dL (0.2-1.0); CREATININE 1.2 mg/dL (0.6-1.3); MAGNESIUM 1.9 mg/dL (1.8-2.4); PHOSPHOROUS 2.7 mg/dL (2.5-4.9); TOTAL PROTEIN, SERUM 6.6 g/dL (6.4-8.2)
[2019-12-02] MEDS: HEPARIN SODIUM,PORCINE 5,000 UNITS/ML VIAL SQ SCH ×2 (09:39→21:22)
[2019-12-02] MEDS: predniSONE 20 MG TABLET PO SCH (09:45)
[2019-12-02] MEDS: AMLODIPINE 5 MG TABLET PO SCH ×2 (09:45→21:17)
[2019-12-02] MEDS: FLUOXETINE HCL 20 MG CAPSULE NG SCH (09:45)
[2019-12-02] MEDS: CARVEDILOL 6.25 MG TABLET PO SCH ×2 (09:46→17:35)
[2019-12-02] MEDS: Z GUARD REMEDY PASTE 57 GM TUBE TOP SCH ×2 (09:46→21:22)
[2019-12-02 09:49] VITALS: BP 118/64
[2019-12-02] MEDS ORDERED: POTASSIUM CHLORIDE 20 MEQ POWDER PACKET PO ONE (10:00)
[2019-12-02] MEDS: IV D5 1/2 NS 1000 ML 1,000 ML IV PRN (10:27)
[2019-12-02] MEDS ORDERED: POTASSIUM CHLORIDE 20 MEQ TAB.PRT.SR PO ONE (12:00)
[2019-12-02] MEDS: INSULIN REGULAR, HUMAN 300 UNIT/3 ML VIAL SQ PRN ×2 (13:24→16:40)
[2019-12-02 15:10] VITALS: BP 116/76
--- NOTE | 2019-12-02 18:28 | NUR ---
Pt. in bed asleep, easy to wake up. AOx1. Able to follow instructions. No signs of distress throughout shift. All needs met. Safety and fall prevention in place. Bed locked and in low position. Call light in reach. Will report to oncoming shift.
[2019-12-02 20:30] VITALS: BP 113/56
--- NOTE | 2019-12-02 20:30 | NUR ---
Received patient resting in bed, easily to arouse. A/Ox1. Asked patient how she is doing, she replied "i'm doing fine baby" No signs of acute distress noted. No s/s of pain or SOB noted. Vitals WNL. No fever noted, saturating well on room air. Right IJ is intact. Safety measures initiated. Bed is low and locked, call light within reach, bed alarm on. Will continue to monitor.
[2019-12-02] MEDS: ATORVASTATIN 20 MG TABLET NG SCH (21:17)
[2019-12-02] MEDS: BENZTROPINE MESYLATE 1 MG TABLET NG SCH (21:18)
[2019-12-03 04:36] VITALS: BP 143/78
[2019-12-03] MEDS: METOCLOPRAMIDE HCL 10 MG/2 ML VIAL IV SCH ×3 (06:30→21:04)
[2019-12-03] MEDS: BLOOD SUGAR DIAGNOSTIC 1 EACH STRIP VI SCH ×4 (06:35→21:04)
[2019-12-03 08:00] VITALS: BP 139/75
--- NOTE | 2019-12-03 08:00 | NUR ---
Received pt in bed asleep, arousable to name and touch. Confused and speech mostly unclear. On RA with no SOB or distress noted at this time. Right IJ triple lumen flushed and all patent. Garcia catheter in place draining clear yellow urine. Sacral wound noted, will take pictures, applied Z-guard. Reoriented and reinforced not to get out of bed. Bed locked in lowest position with siderails 3x up. Will monitor
[2019-12-03] MEDS: IPRATROPIUM BROMIDE 12.9 GM INHALER INH SCH ×4 (08:22→20:11)
[2019-12-03] MEDS: ALBUTEROL SULFATE 8 GM HFA.AER.AD IH SCH ×4 (08:22→20:10)
[2019-12-03] MEDS: CARVEDILOL 6.25 MG TABLET PO SCH ×2 (08:49→18:11)
[2019-12-03] MEDS: AMLODIPINE 5 MG TABLET PO SCH ×2 (08:49→20:44)
[2019-12-03] MEDS: predniSONE 20 MG TABLET PO SCH (08:49)
[2019-12-03] MEDS: FLUOXETINE HCL 20 MG CAPSULE NG SCH (08:49)
[2019-12-03] MEDS: Z GUARD REMEDY PASTE 57 GM TUBE TOP SCH ×2 (09:11→20:49)
[2019-12-03] MEDS: HEPARIN SODIUM,PORCINE 5,000 UNITS/ML VIAL SQ SCH ×2 (09:11→20:47)
[2019-12-03 09:19] LABS: BASOPHILS # (AUTO) 0.1 K/uL (0.0-8.0); EOSINOPHILS % (AUTO) 0.7 % (0.0-7.0); HEMATOCRIT 31.4 % (31.2-41.9); LYMPHOCYTES # (AUTO) 1.1 K/uL (20.0-40.0); LYMPHOCYTES % (AUTO) 17.6 % (20.5-51.5); MEAN CORPUSCULAR HEMOGLOBIN 28.9 uug (24.7-32.8); MEAN CORPUSCULAR HGB CONC 32 g/dL (32.3-35.6); MEAN CORPUSCULAR VOLUME 90.8 fL (75.5-95.3); MONOCYTES # (AUTO) 0.6 K/uL (2.0-10.0); NEUTROPHILS # (AUTO) 4.5 K/uL (1.8-8.9); NEUTROPHILS % (AUTO) 70.7 % (38.5-71.5); PLATELET COUNT (AUTO) 161 K/uL (179-408); RED BLOOD CELL COUNT(AUTO) 3.46 MIL/uL (3.63-4.92); WHITE BLOOD COUNT (AUTO) 6.4 K/uL (3.8-11.8)
[2019-12-03 09:29] LABS: BILIRUBIN,TOTAL 0.5 mg/dL (0.2-1.0); CREATININE 1.2 mg/dL (0.6-1.3); MAGNESIUM 1.3 mg/dL (1.8-2.4); PHOSPHOROUS 2.4 mg/dL (2.5-4.9); POTASSIUM 3.8 mmol/L (3.5-5.1); TOTAL PROTEIN, SERUM 6.8 g/dL (6.4-8.2)
[2019-12-03 11:31] VITALS: BP 118/62
[2019-12-03] MEDS: INSULIN REGULAR, HUMAN 300 UNIT/3 ML VIAL SQ PRN ×2 (11:51→17:35)
[2019-12-03] MEDS ORDERED: NEUTRA PHOS PACKET PO ONE (15:00)
[2019-12-03 16:22] VITALS: BP 111/65
--- NOTE | 2019-12-03 18:56 | NUR ---
Pt kept trying to get out of bed. Reorientation done but confused, was placed in the gerichair. Kept removing gowns and pads. Stable throughout shift. No SOB or distress noted
--- NOTE | 2019-12-03 19:20 | NUR ---
Received patient sitting on the maeve chair. AAOx1 only, mainly confused and disoriented. Right jugular PICC line intact and patent. Garcia catheter intact and draining via gravity. Aspiration precaution observed. Droplet and contact precaution observed. Safety measure initiated and call damon within reached.
[2019-12-03 20:28] VITALS: BP 121/68
[2019-12-03] MEDS: BENZTROPINE MESYLATE 1 MG TABLET NG SCH (20:44)
[2019-12-03] MEDS: ACETAMINOPHEN 325 MG TABLET PO PRN (20:44)
[2019-12-03] MEDS: ATORVASTATIN 20 MG TABLET NG SCH (20:45)
[2019-12-04 04:30] VITALS: BP 124/77
[2019-12-04] MEDS: METOCLOPRAMIDE HCL 10 MG/2 ML VIAL IV SCH ×2 (05:44→13:39)
--- NOTE | 2019-12-04 06:23 | NUR ---
AAOx1 only, mainly confused and disoriented. Right jugular PICC line intact and patent. Garcia catheter intact and draining via gravity. Aspiration precaution maintained. Droplet and contact precaution maintained. Safety measure maintained and call damon within reached.
[2019-12-04 06:36] LABS: EOSINOPHILS % (AUTO) 0.5 % (0.0-7.0); LYMPHOCYTES # (AUTO) 0.5 K/uL (20.0-40.0)
[2019-12-04] MEDS: IPRATROPIUM BROMIDE 12.9 GM INHALER INH SCH ×4 (06:38→20:07)
[2019-12-04] MEDS: ALBUTEROL SULFATE 8 GM HFA.AER.AD IH SCH ×4 (06:38→20:07)
[2019-12-04] MEDS: BLOOD SUGAR DIAGNOSTIC 1 EACH STRIP VI SCH ×3 (06:38→17:34)
[2019-12-04 06:47] LABS: BASOPHILS % (AUTO) 0.7 % (0.0-2.0); HEMATOCRIT 51.1 % (31.2-41.9); HEMOGLOBIN 16.1 g/dL (10.9-14.3); MEAN CORPUSCULAR HEMOGLOBIN 28.7 uug (24.7-32.8); MEAN CORPUSCULAR HGB CONC 32 g/dL (32.3-35.6); MEAN CORPUSCULAR VOLUME 91.2 fL (75.5-95.3); MONOCYTES # (AUTO) 0.3 K/uL (2.0-10.0); MONOCYTES % (AUTO) 7.7 % (0.0-11.0); NEUTROPHILS # (AUTO) 3.3 K/uL (1.8-8.9); NEUTROPHILS % (AUTO) 78.1 % (38.5-71.5); PLATELET COUNT (AUTO) 100 K/uL (179-408); RED BLOOD CELL COUNT(AUTO) 5.61 MIL/uL (3.63-4.92); WHITE BLOOD COUNT (AUTO) 4.2 K/uL (3.8-11.8)
[2019-12-04 06:53] LABS: CREATININE 1.4 mg/dL (0.6-1.3); PHOSPHOROUS 3.7 mg/dL (2.5-4.9); POTASSIUM 3.8 mmol/L (3.5-5.1)
[2019-12-04 08:00] VITALS: BP 127/85
--- NOTE | 2019-12-04 08:00 | NUR ---
Received pt in bed confused, sitting up and trying to get out of bed. Trying to take off gown. Reoriented and reeducated to remain in bed to prevent fall. On RA sat 91% with no SOB or distress noted at this time. right IJ triple lumen flushed and all patent. Garcia catheter in place draining clear yellow urine. Bed locked in lowest position with siderails 3x up. Bed alarm on. Will keep monitoring
[2019-12-04] MEDS: AMLODIPINE 5 MG TABLET PO SCH (08:38)
[2019-12-04] MEDS: FLUOXETINE HCL 20 MG CAPSULE NG SCH (08:38)
[2019-12-04] MEDS: CARVEDILOL 6.25 MG TABLET PO SCH ×2 (08:38→17:39)
[2019-12-04] MEDS: predniSONE 20 MG TABLET PO SCH (08:39)
[2019-12-04] MEDS: ACETAMINOPHEN 325 MG TABLET PO PRN (08:39)
[2019-12-04] MEDS: HEPARIN SODIUM,PORCINE 5,000 UNITS/ML VIAL SQ SCH (08:40)
[2019-12-04] MEDS: Z GUARD REMEDY PASTE 57 GM TUBE TOP SCH (08:40)
--- NOTE | 2019-12-04 09:00 | NUR ---
Alexandru contacted. Temp this AM was 99, Tylenol given per order. Will monitor temp. Heparin SQ withheld per MD order d/t PLT decrease.
--- NOTE | 2019-12-04 09:46 | NUR ---
Dr. Herrera requested lab redraw for patient since there might be an error with AM lab results
--- NOTE | 2019-12-04 10:33 | NUR ---
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 SPOKE WITH NURSING STAFF AND THERE IS FECAL INCONTINENCE REPORTED. PER NURSES, PT MOVES ABOUT IN BED. DISCUSSED SKIN PROTECTION RECOMMENDATIONS WITH NURSING STAFF. CURRENT QUINCY SCORE IS 14. WILL SEE PRN. IN AGREEMENT WITH PLAN OF CARE.
[2019-12-04 10:55] LABS: BASOPHILS % (AUTO) 0.5 % (0.0-2.0); EOSINOPHILS % (AUTO) 0.6 % (0.0-7.0); HEMATOCRIT 30.4 % (31.2-41.9); HEMOGLOBIN 9.5 g/dL (10.9-14.3); LYMPHOCYTES # (AUTO) 0.7 K/uL (20.0-40.0); MEAN CORPUSCULAR HEMOGLOBIN 28.6 uug (24.7-32.8); MEAN CORPUSCULAR HGB CONC 31 g/dL (32.3-35.6); MEAN CORPUSCULAR VOLUME 91.2 fL (75.5-95.3); MONOCYTES # (AUTO) 0.5 K/uL (2.0-10.0); MONOCYTES % (AUTO) 8.2 % (0.0-11.0); NEUTROPHILS # (AUTO) 5.3 K/uL (1.8-8.9); NEUTROPHILS % (AUTO) 79.7 % (38.5-71.5); PLATELET COUNT (AUTO) 179 K/uL (179-408); RED BLOOD CELL COUNT(AUTO) 3.33 MIL/uL (3.63-4.92); WHITE BLOOD COUNT (AUTO) 6.7 K/uL (3.8-11.8)
[2019-12-04 11:03] LABS: CREATININE 1.4 mg/dL (0.6-1.3); POTASSIUM 3.7 mmol/L (3.5-5.1)
[2019-12-04 11:07] LABS: PHOSPHOROUS 3.9 mg/dL (2.5-4.9)
[2019-12-04] MEDS: INSULIN REGULAR, HUMAN 300 UNIT/3 ML VIAL SQ PRN (11:38)
[2019-12-04 11:48] VITALS: BP 114/69
--- NOTE | 2019-12-04 14:00 | NUR ---
Removed Garcia catheter per MD order. Tolerated well
[2019-12-04 15:15] VITALS: BP 110/58
--- NOTE | 2019-12-04 17:00 | NUR ---
Delay in blood sugar check d/t pt removed the ID band and misplaced. Had to ask ER to print new ID band.
[2019-12-04 17:39] VITALS: BP 119/83
[2019-12-04] MEDS ORDERED: PRED20TA PO (17:58)
--- NOTE | 2019-12-04 19:30 | NUR ---
Pt unable to sign forms and papers d/t confusion. DC forms and instructions co-signed with another nurse. Belongings list all accounted for. MRSA swab done prior to DC. Will endorse to PM shift nurse
--- NOTE | 2019-12-04 19:35 | NUR ---
gave report to Medina MCCALLUM in SNF.
--- NOTE | 2019-12-04 20:00 | NUR ---
Rt. IJ catheter was removed, no bleeding noted. The catheter is intact on visual observation. No signs of infection noted. Insertion site was cleansed with CHG and a sterile dressing was applied.
--- NOTE | 2019-12-04 20:05 | NUR ---
Patient was picked up by EMS, inhalers and belongings were given to the patient.
== END 2019-12-04 20:05 | DRG 130 ==
LOC: ER 11:53 → TELE-TD3 16:55 → TELE-TD 21:25 → TELE 11-02 16:00 → CCU 11-04 21:24 → TELE3 11-21 01:15 → MEDSURG3 11-24 08:35
PROVIDERS: ADMIT Internal Medicine; ATTEND Internal Medicine
PROC: 02HV33Z Insertion of Infusion Device into Superior Vena Cava, Percutaneous Approach (ICD-10-PCS; principal; 2019-11-05)
PROC: 5A1955Z Respiratory Ventilation, Greater than 96 Consecutive Hours (ICD-10-PCS; principal; 2019-11-05)
PROC: 0BH17EZ Insertion of Endotracheal Airway into Trachea, Via Natural or Artificial Opening (ICD-10-PCS; principal; 2019-11-05)
PROC: B548ZZA Ultrasonography of Superior Vena Cava, Guidance (ICD-10-PCS; principal; 2019-11-05)
PROC: 30233L1 Transfusion of Nonautologous Fresh Plasma into Peripheral Vein, Percutaneous Approach (ICD-10-PCS; 2019-11-06)
DX: U07.1 COVID-19 (principal); J12.89 Other viral pneumonia; G92 Toxic encephalopathy; J44.1 Chronic obstructive pulmonary disease with (acute) exacerbation; D68.69 Other thrombophilia; E43 Unspecified severe protein-calorie malnutrition; E11.65 Type 2 diabetes mellitus with hyperglycemia; E11.22 Type 2 diabetes mellitus with diabetic chronic kidney disease; D69.6 Thrombocytopenia, unspecified; D64.9 Anemia, unspecified; E86.1 Hypovolemia; E83.52 Hypercalcemia; E87.6 Hypokalemia; I21.A1 Myocardial infarction type 2; I25.10 Atherosclerotic heart disease of native coronary artery without angina pectoris; J69.0 Pneumonitis due to inhalation of food and vomit; J96.01 Acute respiratory failure with hypoxia; J96.02 Acute respiratory failure with hypercapnia; J44.0 Chronic obstructive pulmonary disease with (acute) lower respiratory infection; I13.0 Hypertensive heart and chronic kidney disease with heart failure and stage 1 through stage 4 chronic kidney disease, or unspecified chronic kidney disease; I25.2 Old myocardial infarction; N17.0 Acute kidney failure with tubular necrosis; J98.11 Atelectasis; N18.9 Chronic kidney disease, unspecified; N39.0 Urinary tract infection, site not specified; F17.290 Nicotine dependence, other tobacco product, uncomplicated; F03.91 Unspecified dementia, unspecified severity, with behavioral disturbance; F32.9 Major depressive disorder, single episode, unspecified; E53.8 Deficiency of other specified B group vitamins; E83.39 Other disorders of phosphorus metabolism; Z86.73 Personal history of transient ischemic attack (TIA), and cerebral infarction without residual deficits; Z96.641 Presence of right artificial hip joint; R13.10 Dysphagia, unspecified; R40.2343 Coma scale, best motor response, flexion withdrawal, at hospital admission; R40.2123 Coma scale, eyes open, to pain, at hospital admission; R40.2213 Coma scale, best verbal response, none, at hospital admission; E88.09 Other disorders of plasma-protein metabolism, not elsewhere classified; M62.50 Muscle wasting and atrophy, not elsewhere classified, unspecified site; R74.0 Nonspecific elevation of levels of transaminase and lactic acid dehydrogenase [LDH]; Z79.84 Long term (current) use of oral hypoglycemic drugs; E87.0 Hyperosmolality and hypernatremia; B96.20 Unspecified Escherichia coli [E. coli] as the cause of diseases classified elsewhere; I50.33 Acute on chronic diastolic (congestive) heart failure; R00.1 Bradycardia, unspecified
CPT/HCPCS: 36415; 36600; 51702; 70030-TC; 70450; 71045; 71250; 82652; 83550; 83605; 83615; 83735; 83970; 84100; 84156; 84300; 84443; 84478; 85025; 85610; 85730; 86140; 86706; 86803; 86850; 86900; 86901; 87040; 87070; 87077; 87086; 87340; 87806; 93005; 94002; 94003; 94640; A4217; A4663; G0378; J0330; J0456; J0696; J1120; J1644; J1650; J1815; J2405; J2543; J2765; J2920; J3370; J3475; J3480; J3490; J3535; J7030; J7050; J7060; J7512; U0003-CS